=== PATIENT | male | born 1945 | race Caucasian/White ===

== ENCOUNTER 2016-10-20 17:50 | Inpatient (IN) | payer OTHER ==
[2016-10-20] MEDS ORDERED: NS 1,000 ML IV ONE (19:51)
[2016-10-20 20:08] LABS: ANION GAP 14 mEq/L (8-16); CALCIUM 9.2 mg/dL (8.5-10.4); CARBON DIOXIDE 17 mEq/l (22-31); CHLORIDE 95 mEq/L (97-110); CREATININE 0.8 mg/dL (0.7-1.3); GLOMERULAR FILTRATION RATE > 60; GLUCOSE 110 mg/dL (70-100); POTASSIUM 4.6 mEq/L (3.5-5.2); SODIUM 126 mEq/L (134-144)
--- NOTE | 2016-10-20 20:10 | EDPHY ---
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 He also complains of easy fatigability and shortness of breath with exertion. He had a cold 2 weeks ago and thinks that it moved into his lungs and is causing some edema or swelling of his Bronchials.. He also has increased mucus production and a mild cough. He has been may taking multiple herbal medications that have been helping to decrease his symptoms. His was concerned today however because when she was trying to manipulate the gas in his stomach it seems to be and hard ball in his epigastrium. He is requesting steroids for his lungs. He states that he has taken the before for hay fever and that they worked wonderfully. He does not have any history of COPD or asthma. He did take an suppository today that his worked well for him. REVIEW OF SYSTEMS: Constitutional: denies: chills, fever, recent illness, recent injury EENTM: denies: blurred vision, double vision, nose congestion Respiratory: See HPI Cardiac: See HPI denies: irregular heart rate, lightheadedness, palpitations Gastrointestinal/Abdominal: See HPI denies: abdominal pain, diarrhea, nausea, vomiting, blood streaked stools Genitourinary: denies: dysuria, frequency, hematuria, pain Musculoskeletal: denies: joint pain, muscle pain Skin: denies: lesions, rash, jaundice, bruising Neurological: denies: headache, numbness, paresthesia, tingling, dizziness, weakness Hematologic/Lymphatic: denies: blood clots, easy bleeding, easy bruising Immunologic/allergic: denies: HIV/AIDS, transplant EXAM: GENERAL: Well-appearing, well-nourished and in no acute distress. HEAD: Atraumatic, normocephalic. EYES: Pupils equal round and reactive to light, extraocular movements intact, sclera anicteric, conjunctiva are normal. ENT: TMs normal, nares patent, oropharynx clear without exudates. Moist mucous membranes. NECK: Normal range of motion, supple without lymphadenopathy or JVD. LUNGS: Breath sounds clear to auscultation bilaterally and equal. No wheezes rales or rhonchi. HEART: Regular rate and rhythm without murmurs, rubs or gallops. ABDOMEN: Soft, nontender, normoactive bowel sounds. No guarding, no rebound. No masses appreciated. BACK: No CVA tenderness, no spinal tenderness, step-offs or deformities EXTREMITIES: Normal range of motion, no pitting or edema. No clubbing or cyanosis. NEUROLOGICAL: Cranial nerves II through XII grossly intact. Normal speech, normal gait. 5/5 strength, normal movement in all extremities, normal sensation PSYCH: Normal mood, normal affect. SKIN: Warm, dry, normal turgor, no visible rashes or lesions. Source: Patient Exam Limitations: No limitations - Personal History Current Tetanus/Diphtheria Vaccine: Unsure Current Tetanus Diphtheria and Acellular Pertussis (TDAP): Unsure - Medical/Surgical History Hx Asthma: No Hx Chronic Respiratory Disease: No Hx Diabetes: No Hx Cardiac Disease: No Hx Renal Disease: No Hx Cirrhosis: No Hx Alcoholism: No Hx HIV/AIDS: No Hx Splenectomy or Spleen Trauma: No Other PMH: denies - Family History Significant Family History: No pertinent family hx - Social History Smoking Status: Never smoked Alcohol Use: None Drug Use: None Constitutional: Initial Vital Signs Temperature (C) 36.8 C 10/20/16 18:07 Heart Rate 103 H 10/20/16 18:07 Respiratory Rate 16 10/20/16 18:07 Blood Pressure 117/97 H 10/20/16 18:07 O2 Sat (%) 92 10/20/16 18:07 O2 Delivery Mode Room Air Allergies/Adverse Reactions: No Known Allergies Allergy (Unverified 10/20/16 19:54) Home Medications: Medication Instructions Recorded Herbals/Supplements -Info Only 1 ea PO AD 10/20/16 Melatonin [Melatonin 3 MG (*)] 3 mg PO HS PRN 10/20/16 Medical Decision Making - Diagnostics EKG Interpretation: An EKG obtained and was read and documented in trace view. Please see trace view for full reading and report. Sinus tachycardia, inferior infarct age indeterminate with slight QT elevation in lead 3 only. LVH with repolarization abnormality Imaging: X-ray: chest x-ray was obtained. I viewed the images myself on the PACS system. My interpretation of the images is: Pulmonary edema. The radiologist interpretation is pulmonary edema. ED Course/Re-evaluation: Patient has EKG abnormalities that are nonspecific as well as pulmonary edema and elevated troponin. I discussed the case with Dr. Rashi Montenegro who is concerned and recommends admission an echocardiogram. I will order this tonight. They are here with someone else. Also a treat with aspirin and further evaluation tomorrow. He does not meet criteria tonight for label remover activation. I discussed this with the patient and his family who agree. I discussed this with Dr. Sadi Javier who will admit. 9:30 p.m. the patient is being evaluated by Dr. Montenegro. He will admit the patient primarily to his service. Differential Diagnosis: Partial list of the Differential diagnosis considered include but were not limited to; acute coronary disease, bronchitis, pneumonia, reflux, irritable bowel and although unlikely based on the history and physical exam, I also considered sepsis, dissection, aneurysm. I discussed these differential diagnoses and the plan with the patient as well as the usual and expected course. The patient understands that the diagnosis is provisional and that in medicine we are not always correct and that further workup is often warranted. Usual and customary warnings were given. All of the patient's questions were answered. The patient was instructed to return to the emergency department should the symptoms at all worsen or return, otherwise to followup with the physician as we discussed. - Data Points Laboratory Results: Laboratory Results 10/20/16 19:15 10/20/16 19:30 10/20/16 10/20/16 19:30 19:15 WBC 10.37 H 10^3/uL (3.80-9.50) RBC 5.36 10^6/uL (4.40-6.38) Hgb 16.0 g/dL (13.7-17.5) Hct 45.6 % (40.0-51.0) MCV 85.1 fL (81.5-99.8) MCH 29.9 pg (27.9-34.1) MCHC 35.1 g/dL (32.4-36.7) RDW 12.4 % (11.5-15.2) Plt Count 231 10^3/uL (150-400) MPV 10.0 fL (8.7-11.7) Neut % (Auto) 81.6 H % (39.3-74.2) Lymph % (Auto) 9.6 L % (15.0-45.0) Bonner % (Auto) 8.1 % (4.5-13.0) Eos % (Auto) 0.1 L % (0.6-7.6) Baso % (Auto) 0.2 L % (0.3-1.7) Nucleat RBC Rel Count 0.0 % (0.0-0.2) Absolute Neuts (auto) 8.46 H 10^3/uL (1.70-6.50) Absolute Lymphs (auto) 1.00 10^3/uL (1.00-3.00) Absolute Monos (auto) 0.84 H 10^3/uL (0.30-0.80) Absolute Eos (auto) 0.01 L 10^3/uL (0.03-0.40) Absolute Basos (auto) 0.02 10^3/uL (0.02-0.10) Absolute Nucleated RBC 0.00 10^3/uL (0-0.01) Immature Gran % 0.4 % (0.0-1.1) Immature Gran # 0.04 10^3/uL (0.00-0.10) D-Dimer 1.05 H ug/mLFEU (0.00-0.50) Sodium 126 L mEq/L (134-144) Potassium 4.6 mEq/L (3.5-5.2) Chloride 95 L mEq/L (97-110) Carbon Dioxide 17 L mEq/l (22-31) Anion Gap 14 mEq/L (8-16) BUN 18 mg/dL (7-23) Creatinine 0.8 mg/dL (0.7-1.3) Estimated GFR > 60 Glucose 110 H mg/dL (70-100) Calcium 9.2 mg/dL (8.5-10.4) Total Bilirubin 1.7 H mg/dL (0.1-1.4) Conjugated Bilirubin 0.6 H mg/dL (0.0-0.5) Unconjugated Bilirubin 1.1 mg/dL (0.0-1.1) AST 37 IU/L (17-59) ALT 51 IU/L (21-72) Alkaline Phosphatase 78 IU/L (38-126) Troponin I 0.266 H ng/mL (0-0.034) NT-Pro-B Natriuret Pep Pending Total Protein 7.2 g/dL (6.3-8.2) Albumin 4.0 g/dL (3.5-5.0) Lipase 23.0 IU/L (23-300) Medications Given: Discontinued Medications Aspirin (Aspirin) 324 mg PO EDNOW ONE Stop: 10/20/16 21:00 Last Admin: 10/20/16 21:35 Dose: 324 mg Sodium Chloride (Ns) 1,000 mls @ 0 mls/hr IV ONCE ONE PRN Reason: Wide Open Stop: 10/20/16 19:52 Last Admin: 10/20/16 19:53 Dose: 1,000 mls Departure - Departure Disposition: [facility] Inpatient Acute Clinical Impression: Chest pain Qualifiers: Qualifier Code: (R07.9) Chest pain, unspecified Condition: Fair
[2016-10-20 20:15] LABS: % IMMATURE GRANULYOCYTES 0.4 % (0.0-1.1); ABSOLUTE IMMATURE GRANULOCYTES 0.04 10^3/uL (0.00-0.10); ADD DIFF? NO; ADD MORPH? NO; ADD SCAN? NO; ATYPICAL LYMPHOCYTE FLAG 20 (0-99); FRAGMENT RBC FLAG 0 (0-99); HEMATOCRIT 45.6 % (40.0-51.0); LEFT SHIFT FLG 0 (0-99); LIPEMIA HEMOLYSIS FLAG 90 (0-99); MEAN CELL HEMOGLOBIN 29.9 pg (27.9-34.1); MEAN CELL HEMOGLOBIN CONCENTR. 35.1 g/dL (32.4-36.7); MEAN CELL VOLUME 85.1 fL (81.5-99.8); PLATELET CLUMPS FLAG 0 (0-99); PLATELET COUNT 231 10^3/uL (150-400); RED BLOOD CELL COUNT 5.36 10^6/uL (4.40-6.38); RED CELL DISTRIBUTION WIDTH 12.4 % (11.5-15.2)
[2016-10-20 20:27] LABS: ALANINE AMINOTRANSFERASE 51 IU/L (21-72); ALKALINE PHOSPHATASE 78 IU/L (38-126); ASPARTATE AMINOTRANSFERASE 37 IU/L (17-59); BILIRUBIN,TOTAL 1.7 mg/dL (0.1-1.4); BILIRUBIN-CONJUGATED 0.6 mg/dL (0.0-0.5); BILIRUBIN-UNCONJUGATED 1.1 mg/dL (0.0-1.1); TOTAL PROTEIN 7.2 g/dL (6.3-8.2)
[2016-10-20 20:39] LABS: TROPONIN I 0.266 ng/mL (0-0.034)
--- NOTE | 2016-10-20 20:40 | CPEKG ---
Heart Rate: 100 RR Interval: 600 P-R Interval: 148 QRSD Interval: 94 QT Interval: 352 QTC Interval: 454 P Searcy: 39 QRS Searcy: -7 T Wave Searcy: 155 EKG Severity - ABNORMAL ECG - EKG Impression: SINUS TACHYCARDIA EKG Impression: LEFT ATRIAL ABNORMALITY EKG Impression: INFERIOR INFARCT, AGE INDETERMINATE EKG Impression: ANTERIOR INFARCT, AGE INDETERMINATE Electronically Signed By: Alvarado Penny 20-Oct-2016 21:01:07
--- NOTE | 2016-10-20 20:46 | DX ---
PA and lateral chest. October 20, 2016. Clinical History: Dyspnea. Chest pain. Comparison Study: None available. Findings: Interstitial thickening is associated with small bilateral pleural effusions, findings sugg esting acute congestive heart failure. Cardiac silhouette is upper normal. Visualized osseous structures appear normal. Impression: Acute congestive heart failure with interstitial thickening and small bilateral pleural e ffusions..
[2016-10-20] MEDS ORDERED: ASPIRIN 81 MG CHEWABLE TAB PO ONE (20:59)
[2016-10-20] MEDS ORDERED: ONDANSETRON DISINTEGRATING 4 MG TAB PO PRN (22:06)
[2016-10-20] MEDS ORDERED: TEMAZEPAM 15 MG CAP PO PRN (22:06)
[2016-10-21] MEDS: ENOXAPARIN 60 MG/0.6 ML SYR SC SCH ×3 (00:13→21:33)
--- NOTE | 2016-10-21 03:21 | GCON ---
[f rep st] CONSULTATION HISTORY OF PRESENT ILLNESS: Rojas Alonso is a 70-year-old male, without significant past medical history , who has been seen in the past by PAM Mcdonald in our clinic, for a well-patient check. He de nies a history of chest pain. He had previously denied any history of chest pain, palpitations, sync ope, or near syncope. He works at [employer] which is a fairly physical job. He has noticed sh ortness of breath when walking that he attributes to allergies and mucous in his trachea. He has no family history of premature cardiovascular disease. Mother of liver cancer in her 70s and his father had dementia. The patient has recently been complaining of flu-like symptoms, achiness and fatigue at work, as well as progressive shortness of breath, with [place] Heart [employer] class III symptoms of heart fail ure, with shortness of breath with minimal exertion, and extreme fatigue with his exercise at work. He has previously had a history of an abnormal EKG, and it was recommended in August 2015, that the patient undergo a stress test which the patient in his own words "blew off" and did not do, thinking that he would not be able to walk briskly on the treadmill. An echocardiogram was also recommended to evaluate for LVH, and a stress test as I mentioned, was recommended for his dyspnea as well. Toda y the patient feels in his words "lousy", and is not currently taking medication for his hypertension . PAST MEDICAL HISTORY: Significant for hypertension and shortness of breath. PAST SURGICAL HISTORY: Significant for hernia surgery. ALLERGIES: He is known to have allergy to tetanus. SOCIAL HISTORY: Previous tobacco user. REVIEW OF SYSTEMS: His review of systems is negative for weight loss or gain, changes in vision. He has not had chest pain, per se, fainting, palpitations, sweating, pain in legs with walking, swelli ng in his legs, or waking up with shortness of breath. He does not have a history of peripheral marleny a. He has had abdominal fullness and a lack of appetite recently. He has not had nocturia or hemat uria, rash, new skin lesions, memory difficulty, seizures, or dizziness. PHYSICAL EXAMINATION: VITAL SIGNS: The patient's blood pressure is noted to be 155/74, elevated mean arterial pressure is 101, heart rate 81, respiratory rate 16, oxygen saturation 96% on room air. NE CK: Reveals no JVD. HEART: Reveals a normal S1 and S2 with a positive S3 and S4 gallop. LUNGS: Buddy ar to auscultation anteriorly with decreased breath sounds at the left lung base. ABDOMEN: Benign w ith positive bowel sounds which are hyperactive. Nondistended and nontender. I do not appreciate re bound or guarding. EXTREMITIES: Warm, dry, and well perfused without significant peripheral edema. IMAGING: His chest x-ray was interpreted tonight by Dr. Yfn Vaughan, and reveals acute congestive heart failure with interstitial thickening and small bilateral pleural effusions, left more prominent than right. The patient's EKG reveals sinus rhythm, with a prior and old anterior OK, with evidence of probable p ersistent ST-segment elevation, as would be seen in an old anterior infarction, with a QS pattern and an abnormal ST-T wave contour. There was also evidence of Q-waves in lead 3 as well as an abnormal ST-T wave contour in lead 3 and aVF, most consistent with a recent inferior infarction. The patient's echocardiogram reveals segmental wall motion abnormalities involving the anterior wall as well as the basal inferior wall, which is suggestive of an ischemic cardiomyopathy. His ejection fraction is severely reduced at 20. LABORATORY STUDIES: White count 10.37, H and H 16.0 and 45.6, platelet count 231. Coags reveal a D- dimer 1.05, normal range 0 to 0.5. BUN and creatinine are 18 and 0.8. Sodium 126, potassium 4.6, chl oride 95, carbon dioxide 17, and glucose is a nonfasting sample at 110. Total bilirubin 1.7, conjuga neftaly 0.6. Troponin-I is 0.266. Lipase 23. IMPRESSION/PLAN: This patient has a subacute epigastric discomfort and gas, which may not be related to his EKG abnormalities. Clearly his fatigue and shortness of breath which is subacute and superim posed on chronic symptoms, is likely related to a recent inferior injury pattern. It does appear gabrielle t his EKG, when compared to August of 2015, is markedly abnormal and suggestive of an old anterior infarction on today's EKG, which was not present in August 2015. Again there are ST-T wave abnorma lities that are suggestive of a more recent inferior injury. The patient clearly has evidence of an ischemic cardiomyopathy and would benefit from cardiac catheterization, which is planned in the [facility]. I have explained the risks, benefits, alternatives, and course of action to the patient. He unde rstands and may be willing to proceed as planned. 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 He does think he would be willing to proceed with cardiac cat heterization, so we will plan to proceed with that if he lets us in the morning. I have asked that h e notify us immediately for chest pain, shortness of breath, palpitations, fainting, or near fainting . He will clearly need to be on the monitor secondary to his ischemic myopathy and the risk for sudd en cardiac rhythm disturbance that could be life-threatening. /[id number]/MODL
[2016-10-21 04:49] LABS: % IMMATURE GRANULYOCYTES 0.6 % (0.0-1.1); ABSOLUTE IMMATURE GRANULOCYTES 0.04 10^3/uL (0.00-0.10); ADD DIFF? NO; ADD MORPH? NO; ADD SCAN? NO; ATYPICAL LYMPHOCYTE FLAG 30 (0-99); FRAGMENT RBC FLAG 0 (0-99); HEMATOCRIT 41.4 % (40.0-51.0); HEMOGLOBIN 14.4 g/dL (13.7-17.5); LEFT SHIFT FLG 0 (0-99); LIPEMIA HEMOLYSIS FLAG 90 (0-99); MEAN CELL HEMOGLOBIN 30.3 pg (27.9-34.1); MEAN CELL HEMOGLOBIN CONCENTR. 34.8 g/dL (32.4-36.7); MEAN CELL VOLUME 87.2 fL (81.5-99.8); MEAN PLATELET VOLUME 10.3 fL (8.7-11.7); PLATELET CLUMPS FLAG 0 (0-99); PLATELET COUNT 194 10^3/uL (150-400); RED BLOOD CELL COUNT 4.75 10^6/uL (4.40-6.38); RED CELL DISTRIBUTION WIDTH 12.4 % (11.5-15.2)
[2016-10-21 04:56] LABS: INR 1.15 (0.83-1.16); PROTIME(PATIENT) 14.7 SEC (12.0-15.0)
[2016-10-21 04:57] LABS: APTT 40.7 SEC (23.0-38.0)
[2016-10-21] MEDS ORDERED: FUROSEMIDE 40 MG TAB PO ONE ×2 (05:06→15:00)
[2016-10-21 05:07] LABS: ALANINE AMINOTRANSFERASE 51 IU/L (21-72); ALBUMIN 3.2 g/dL (3.5-5.0); ALKALINE PHOSPHATASE 66 IU/L (38-126); ANION GAP 10 mEq/L (8-16); ASPARTATE AMINOTRANSFERASE 29 IU/L (17-59); BILIRUBIN,TOTAL 1.6 mg/dL (0.1-1.4); CALCIUM 8.4 mg/dL (8.5-10.4); CARBON DIOXIDE 18 mEq/l (22-31); CHLORIDE 99 mEq/L (97-110); CHOLESTEROL 144 mg/dL (140-220); CHOLESTEROL/HDL RATIO 3.89 RATIO (1.00-4.97); CREATININE 0.7 mg/dL (0.7-1.3); GLOMERULAR FILTRATION RATE > 60; GLUCOSE 97 mg/dL (70-100); HIGH DENSITY LIPOPROTEIN 37 mg/dL (40-65); LDL/HDL RATIO 2.51 RATIO (1.00-3.64); LOW DENSITY LIPOPROTEIN 93 mg/dL (80-100); MAGNESIUM 1.9 mg/dL (1.6-2.3); NON-HIGH DENSITY LIPOPROTEIN 107 mg/dL (90-129); POTASSIUM 4.4 mEq/L (3.5-5.2); SODIUM 127 mEq/L (134-144); TOTAL PROTEIN 6.3 g/dL (6.3-8.2); TRIGLYCERIDE 70 mg/dL (40-150); VERY LOW DENSITY LIPOPROTEINS 14 mg/dL (8-25)
[2016-10-21] MEDS ORDERED: NITROGLYCERIN 0.4 MG BTL SL PRN (06:00)
[2016-10-21] MEDS ORDERED: NS 1,000 ML IV ONE (06:00)
--- NOTE | 2016-10-21 09:02 | ECHO ---
[id number] + + [address] : : [place] [address] : : [phone] + + Adult Echocardiographic Report + + :Name: KENRICK COREA Study Date: 10/20/2016 09:50 PM : : Hospital Admission Number: [id number] : :: 1945 Gender: Male Height: 66 in : :Age: 70 yrs Race: PTD Weight: 134 lb : :Reason For Study: Eval LV Fx : : BSA: 1.7 meters2: :History: Chest Pain, SOB, Abnormal EKG : + + MMode/2D Measurements & Calculations IVSd: 0.92 cm LVIDd: 4.9 cm FS: 11.1 % MV Diam: 3.2 cm LVPWd: 1.3 cm LVIDs: 4.4 cm EDV(Teich): 115.5 ml ESV(Teich): 87.7 ml EF(Teich): 24.1 % Ao root diam: LVOT diam: 2.0 cmLVLd ap4: 7.4 cm SV(MOD-sp4): 3.7 cm LVOT area: EDV(MOD-sp4): 19.0 ml ACS: 1.8 cm 3.1 cm2 105.0 ml LVLs ap4: 7.6 cm ESV(MOD-sp4): 86.0 ml EF(MOD-sp4): 18.1 % Normal Measurement Values: + + :LVIDd (3.5-5.7cm) IVSd (0.6-1.1cm) LVPWd (0.6-1.1cm) Aortic Root (2.0-3.7cm)Left Atrium (1.5-4.0cm): :LV Vol(d) (76-115ml) LV Vol(s) (29-48ml) Ejec Fraction (50-65%)PV Bj (0.6- 1.2m/s) TV Bj (0.4-1.0m/s) : :MV E Bj (0.8-1.0m/s)MV A Bj (0.3-1.0m/s)LVOT Bj (0.7-1.2m/s) Asc Ao Bj ( 0.9-1.8m/s) : + + Doppler Measurements & Calculations MV V2 max: AI max bj: MR max bj: MR(RF 1 diam): 99.1 cm/sec 413.0 cm/sec 470.5 cm/sec 25.3 % MV max P.9 mmHg AI max PG: MR max PG: MV V2 mean: 68.2 mmHg 88.6 mmHg 71.6 cm/sec MV mean P.0 mmHg MV V2 VTI: 18.1 cm MV area (1 diam): 8.0 cm2 MV Flow area(1diam): 8.0 cm2 SV(MV 1 diam): 145.6 ml SI(MV 1 diam): 86.3 ml/m2 Left Ventricle The left ventricle is mildly dilated. There is mild concentric left ventricular hypertrophy. Left ventricular systolic function is moderate to severely reduced. Ejection Fraction = 15-20%. There is mid anteroseptal to apical hypokinesis. There is inferior akinesis. Right Ventricle The right ventricle is normal in size and function. Atria The left atrial size is normal. Right atrial size is normal. Mitral Valve The mitral valve leaflets appear thickened, but open well. There is no evidence of mitral valve prolapse. There is no mitral valve stenosis. There is mild to moderate mitral regurgitation. Tricuspid Valve The tricuspid valve is normal in structure and function. There is trace tricuspid regurgitation. Aortic Valve The aortic valve is trileaflet. There is no aortic stenosis. Moderate to severe aortic regurgitation. Pulmonic Valve The pulmonic valve is normal in structure and function. There is no pulmonic valvular regurgitation. Great Vessels The aortic root is normal size. Pericardium/Pleural There is no pericardial effusion. There is a large pleural effusion. Conclusion A complete two-dimensional transthoracic echocardiogram was performed (2D, M-mode, Doppler and color flow Doppler). The left ventricle is mildly dilated. There is mild concentric left ventricular hypertrophy. Left ventricular systolic function is moderate to severely reduced. Ejection Fraction = 15-20%. There is mid anteroseptal to apical hypokinesis. There is inferior akinesis. The mitral valve leaflets appear thickened, but open well. There is mild to moderate mitral regurgitation. The tricuspid valve is normal in structure and function. There is trace tricuspid regurgitation. The aortic valve is trileaflet. Moderate to severe aortic regurgitation. There is no pericardial effusion. There is a large pleural effusion. These findings are consistent with an ischemic cardimyopathy. Final Reading Physician: Abe Che signed on 10/21/2016 09:01 AM Ordering Physician: DOUG YAO Performed By: Alex Reyes, [facility]
[2016-10-21] MEDS ORDERED: LIDOCAINE 1% 30 ML SDV ONE (09:29)
[2016-10-21] MEDS ORDERED: MIDAZOLAM 2 MG/2 ML VIAL ONE (09:30)
[2016-10-21] MEDS ORDERED: HEPARIN 10,000 UNIT/10 ML MDV ONE (09:30)
[2016-10-21] MEDS ORDERED: fentaNYL 100 MCG/2 ML INJ ONE (09:30)
[2016-10-21] MEDS ORDERED: VERAPAMIL 5 MG/2 ML VIAL ONE (09:30)
[2016-10-21] MEDS ORDERED: diphenhydrAMINE 25 MG CAP PO ONE (09:30)
[2016-10-21] MEDS ORDERED: IOPAMIDOL (ISOVUE-370) 150 ML BTL IV ONE ×2 (09:30→12:08)
[2016-10-21] MEDS ORDERED: ASPIRIN EC 325 MG TAB PO ONE (09:30)
[2016-10-21] MEDS ORDERED: DIAZEPAM 5 MG TAB PO ONE (09:30)
[2016-10-21] MEDS ORDERED: BIVALIRUDIN 250 MG/5 ML VIAL IV ONE (12:11)
[2016-10-21] MEDS ORDERED: NITROGLYCERIN 1,500 MCG/15 ML VIAL MISC ONE (12:11)
[2016-10-21] MEDS ORDERED: ATROPINE SULFATE 1 MG/10 ML SYR IVP PRN (12:59)
--- NOTE | 2016-10-21 14:57 | CPIP ---
[f rep st] INVASIVE CARDIAC PROCEDURE DATE OF PROCEDURE: 10/21/2016 PROCEDURE PERFORMED: 1. Selective coronary angiography. 2. Left heart catheterization. 3. Left ventriculogram. 4. Manual hold arteriotomy repair. COMPLICATIONS: None. INDICATIONS/APPROPRIATE USE CRITERIA: The patient presents with a sudden myocardial infarction with an abnormal EKG and evidence of [place] Heart [employer] Class IV symptoms of heart failure. The p atient has also had epigastric pressure at rest which is likely an anginal equivalent consistent with CCS Class IV angina. A stress test was obviously not done because of resting EKG abnormalities and evidence of ischemic cardiomyopathy on the basis of echocardiogram performed last evening. PROCEDURE IN DETAIL: After informed consent was obtained and NPO status was confirmed, the region of the right groin was cleaned, prepped and draped in sterile fashion. Approximately 15 cc of 1% lidoc raghu were realized for local anesthesia. A 6-Bulgarian sheath was placed through the right common femor al artery with single acupuncture of the micropuncture set which was ultimately exchanged for a J-wir e, and a 6-Bulgarian sheath was placed with modified Seldinger technique. The patient then underwent th e previously mentioned diagnostic procedures with use of JR4 and JL4 coronary catheters, as well as a 6-Bulgarian pigtail catheter. Standard wire exchange technique was utilized for all catheter exchanges . We had difficulty negotiating the proximal portion of the right common iliac with a standard J-wire. Therefore, the JR catheter was used along with a Glidewire to advance into the abdominal aorta. The distal abdominal aorta was tortuous, suggestive of a possible aneurysm. The JR4 was seated into the proximal and ostial right coronary, revealing a total occlusion of the right coronary with right-to- right and very weak difiw-po-jiws collaterals. 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 The right coronary artery was originally dominant and gives rise to a PDA and 2 posterolateral ventricular bran ches. Again, bridging collaterals are seen consistent with a chronic total occlusion of the right co ronary. The left main coronary lumen is approximately 4 mm in size and has 2 lesions which are 70-80% obstruc neftaly. The left main bifurcates into an LAD and circumflex system. There is a robust proximal diagona l vessel. The LAD is totally occluded distal to the diagonal and septal takeoff. The circumflex is also subtotally occluded with a 95% or greater obstruction. There is [place] 1 flow via collaterals int o the mid and distal LAD. There is evidence of wggkm-pu-cpbh collaterals to 2 PLV branches posterior ly, as well as gtnp-qd-qxzl collaterals as I previously mentioned. The patient underwent left heart catheterization with the pigtail, demonstrating elevated left ventricle end-diastolic pressure measur ed at 28 mmHg. The patient underwent a left ventriculogram in the ALBRIGHT projection, demonstrating jeanne rely depressed left ventricular systolic function with severe hypokinesis of the entire inferior wall and severe hypokinesis of the mid-anterior, distal anterior wall and apex, consistent with ischemic cardiomyopathy, ejection fraction is 10-15%. There was no evidence of a gradient upon pullback across the aortic valve. The patient underwent an abdominal aortogram with bilateral iliac runoff given the findings and the difficulty of traversing t he ostial and proximal right common iliac vessel. 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 It is unclear to me which of those vessels is involved. The re was a long landing zone in the infrarenal abdominal aorta, followed by an abdominal aortic aneurys m which is saccular in nature. Distal to the abdominal aortic aneurysm, there was significant plaque within the distal aorta, as well as an 85-90% right common iliac stenosis with associated reconstitu tion of an iliac aneurysm as well, which in essence is at least complex atheroma, if not a contained pseudoaneurysm in that location. A contained pseudoaneurysm versus a true aneurysm in that location which is the proximal right common iliac. There was diffuse disease in the iliacs distally without o ther flow-limiting obstruction. SUMMARY OF FINDINGS: This patient has ischemic cardiomyopathy with what appears to be a relatively r ecent LAD obstruction with evidence of reconstitution. There was also a complete occlusion of the ri ght coronary artery as well, and severe [place] vessel coronary disease including involving the left m ain. If the patient's heart muscle is viable, he could be considered for bypass surgery with HATCH to the LAD, which looks like a significant vessel, saphenous vein graft to the diagonal graft to the ci rcumflex obtuse marginal system, PLV system, and PDA system. I do suspect that there is high-grade o bstruction of the right coronary artery distal to the PDA takeoff, so both of those may need to be se parately bypassed. The patient's other option would be for complex intervention if indeed his heart muscle is more viable than expected. The patient has an abdominal aortic aneurysm which is infrarenal with associated right common iliac d isease, if not aneurysm. I think the patient would be a good candidate long-term for endograft repai r of that area, given the long landing zone in the aorta distal to the renal takeoff. The patient cl early needs to be treated for his ischemic cardiomyopathy with beta-jorge, RONNELL inhibitor, ultimatel y spironolactone, and also statin therapy. 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 I think for now he should be treated with aspirin and subcutaneous full dose Lovenox after an appropriate bedrest following his right groin approach with manual hold. /[id number]/MODL
[2016-10-21] MEDS: CARVEDILOL 3.125 MG TAB PO SCH (18:24)
[2016-10-22 05:34] LABS: ANION GAP 9 mEq/L (8-16); CALCIUM 7.8 mg/dL (8.5-10.4); CARBON DIOXIDE 21 mEq/l (22-31); CHLORIDE 100 mEq/L (97-110); CREATININE 0.7 mg/dL (0.7-1.3); GLOMERULAR FILTRATION RATE > 60; GLUCOSE 83 mg/dL (70-100); POTASSIUM 4.1 mEq/L (3.5-5.2); SODIUM 130 mEq/L (134-144)
[2016-10-22 05:38] LABS: TROPONIN I 0.208 ng/mL (0-0.034)
--- NOTE | 2016-10-22 08:56 | CPEKG ---
Heart Rate: 90 RR Interval: 667 P-R Interval: 160 QRSD Interval: 124 QT Interval: 372 QTC Interval: 455 P [place]: 27 QRS [place]: 32 T Wave [place]: 175 EKG Severity - ABNORMAL ECG - EKG Impression: SINUS RHYTHM EKG Impression: NONSPECIFIC INTRAVENTRICULAR CONDUCTION DELAY EKG Impression: INFERIOR INFARCT, AGE INDETERMINATE EKG Impression: ANTERIOR INFARCT, AGE INDETERMINATE EKG Impression: ST DEPRESSION, CONSIDER ISCHEMIA, LAT LEADS EKG Impression: UNCHANGED IN COMPARISON TO PRIOR Electronically Signed By: Jaquan Walker 22-Oct-2016 10:08:29
[2016-10-22] MEDS: LISINOPRIL 2.5 MG TAB PO SCH (09:26)
[2016-10-22] MEDS: POTASSIUM CL 20 MEQ PKT PO SCH ×2 (09:26→22:05)
[2016-10-22] MEDS: FUROSEMIDE 40 MG/4 ML VIAL IVP SCH ×2 (09:26→15:42)
[2016-10-22] MEDS: CARVEDILOL 3.125 MG TAB PO SCH (09:27)
[2016-10-22] MEDS: ATORVASTATIN CALCIUM 40 MG TAB PO SCH (09:27)
[2016-10-22] MEDS: ASPIRIN 325 MG TAB PO SCH (09:27)
[2016-10-22] MEDS: ENOXAPARIN 60 MG/0.6 ML SYR SC SCH ×2 (09:27→22:05)
--- NOTE | 2016-10-22 10:09 | GCON ---
[f rep st] CONSULTATION DATE OF CONSULTATION: 10/22/2016 REFERRING PHYSICIAN: Dr. Montenegro IMPRESSION: 1. Class IV congestive heart failure secondary to ischemic cardiomyopathy with severe 3-vessel disease and moderate aortic insufficiency. 2. Severe peripheral vascular disease with descending thoracic atherosclerosis and abdominal aortic aneurysm. 3. Remote cigarette abuse. RECOMMENDATIONS: This gentleman will be conferenced. Consideration for complete revascularization, aortic valve replacement at a 10% to 12% mortality could be considered. Other options are medical therapy. I see no place for intervention with PCI in this setting, due to the complex multiple vessel involvement. The patient and his were offered the option of potential surgical intervention. In the meantime, we will begin aggressive diuresis since he has persistent PND, orthopnea, and has not been diuresed since admission. CHIEF COMPLAINT: This gentleman has a prolonged history of congestive heart failure symptoms with fatigue, shortness of breath, to the point he had severe PND and orthopnea, and was brought in somewhat extremis to the ER with difficulty breathing. He attributed it to a bronchitis and allergies, although his states he has been going downhill for greater than a year. He was recommended a complete cardiac evaluation a year ago, but refused. He has not had prior cardiac events that he is aware of. MEDICAL HISTORY: Positive for remote cigarette abuse. He does not drink. He works at [employer]. He does have uncontrolled hypertension, which he has never treated. PREVIOUS SURGERIES: Include hernia surgery. ALLERGIES: He is allergic to tetanus. REVIEW OF SYSTEMS: At the present time, he complains of shortness of breath with any activity, including talking. He is unable to lie flat. His has noted marked abdominal distention. The patient is not a great historian, and tends to ramble about multiple unrelated events. LABORATORY DATA: BNP on admission was greater than 8000. Creatinine was 0.8, bilirubin 1.7. Troponin 0.266. Please see EKG and cath report as well as echo. Chest x-ray reveals bilateral infiltrates consistent with congestive heart failure and bilateral pleural effusions. He has some cardiomegaly noted as well. PHYSICAL EXAMINATION: GENERAL: A small [place] gentleman, sitting upright, slightly short of breath. VITAL SIGNS: 130/92, pulse 85, respirations 17, O2 saturation 95% on room air. HEENT: Reveals poor dentition. NECK: Without bruits. CARDIAC: Heart rate is regular without murmur, S3, or S4. LUNGS: Basilar dullness as well as end expiratory rales. ABDOMEN: Slightly protuberant, nontender. Bowel sounds are active. RECTAL AND GENITAL EXAM: Deferred. NEUROLOGICAL: He is oriented x3. Mood and affect are appropriate. /[id number]/MODL MTDD
--- NOTE | 2016-10-22 12:38 | US ---
Bilateral Duplex/Doppler Carotid Sonography History: 70-year-old, preop valve replacement, dizziness, hypertension, smoker. Comparison: None available. Technique: The cervical portions of the carotid and vertebral arteries were imaged and interrogated by color and pulsed Duplex/Doppler. Spectral analysis was performed. Findings Right Carotid: Right CCA peak systolic velocity = 60 cm/sec Right ECA peak systolic velocity = 67 cm/sec Right ICA peak systolic velocity = 60 cm/sec Right ICA/CCA systolic velocity ratio = 1 Velocities correlate to less than 50 % diameter stenosis of the origin of the right internal carotid artery with respect to the normal distal internal carotid artery. There is no significant calcified p laque involving the right carotid bulb and proximal right internal carotid artery. Left Carotid: Left CCA peak systolic velocity = 74 cm/sec Left ECA peak systolic velocity = 54 cm/sec Left ICA peak systolic velocity = 55 cm/sec Left ICA/CCA systolic velocity ratio = 0.8 Velocities correlate to less than 50 % diameter stenosis of the origin of the left internal carotid a rtery with respect to the normal distal internal carotid artery. There is mild to moderate calcified plaque involving the left carotid bulb and proximal left internal carotid artery. Vertebral Arteries: Antegrade flow is shown by pulsed Doppler of each vertebral artery. Impression: No hemodynamically significant stenosis by systolic velocity criteria. Measurement of carotid stenosis is based on velocity parameters that correlate the residual internal carotid diameter with [place] Symptomatic Carotid Endarterectomy Trial (NASCET) based stenosis levels.
--- NOTE | 2016-10-22 18:01 | PDCARPN ---
[id number] Assessment/Plan: Assessment: 70-year-old male admitted in 10/20/2016 chest pain and shortness of breath for 3 weeks. He has significant history of hypertension. Echocardiogram (10/20/2016 ) showed LV mildly dilated with concentric LVH, systolic function was severely reduced with EF of 15-20%, mild anterior septal to apical hypokinesis, inferior radial is akinesis, wqwb-xi-lhwsfttm MR, to trace TR, moderate to severe AI, will large pleural effusion. Underwent cardiac catheterization on 10/20/[address] Montenegro, found to have severe ischemic cardiomyopathy with multivessel disease, abdominal aortic aneurysm which is infrarenal with associated right common iliac disease. He has been started on carvedilol, lisinopril, and be given IV diuresis. CT surgery has seen patient, would like him to be further diuresed before considering surgery. Patient reports no chest pressure last p.m.. Reports orthopnea, but has improved, gets very short of breath little exertion. No arrhythmias noted overnight. Plan: 1. CAD: Multivessel, considering total revascularization by CABG, planning to diuresed before surgery. Currently on ASA, beta-jorge, and Lovenox. Heart rate has been running in the 90s, blood pressure stable, increased carvedilol up to 6.25 mg p.o. twice daily. 2. Valvular heart disease: Wide open AI, again CT surgery is seen, consider replacement. 3. Ischemic cardiomyopathy: EF 15-20%, NYHA class IV symptoms, elevated JVD, beta-jorge, Glenroy inhibitor, and being diuresed IV Lasix. Monitor renal function closely. 4. Hyperlipidemia: Multivessel CAD, started on atorvastatin, will probably need repeat fasting lipid and liver panel in 8 weeks. 10/22/16 16:10 Subjective: Patient reports no chest pain, continue shortness of breath, denies of any palpitations, lightheadedness. Reviewed/Discussed With: family ( and Son), other (Dr Moore) Objective: Vital Signs (8 Hrs) Temp Pulse Resp BP Pulse Ox 10/22/16 16:00 36.6 C 79 17 102/70 94 10/22/16 12:00 36.7 C 96 18 135/92 H 93 Intake/Output (24 Hrs) 10/21/16 10/22/16 10/23/16 05:59 05:59 05:59 Intake Total 1100 Output Total 850 Balance 250 Intake: Oral (ml) 100 IV Infused (ml) 1000 Ns 1,000 ml @ KVO IV 1000 [facility] Rx#:[id number] Output: Urine (ml) 850 Urinal 850 Other: Intake Quantity Yes Sufficient Number of Stools Urinal 1 Result Diagrams: 10/21/16 04:15 10/23/16 05:14 Cardiac Labs: Cardiac Lab Results (72 Hrs) 10/22/16 04:41 Troponin I 0.208 H - Physical Exam Constitutional: WDWN Ears, Nose, Mouth, Throat: moist mucous membranes Cardiovascular: regular rate and rhythm, no rubs, diastolic murmur (Right upper chest, 3/6), jugular vein distention (7-8 cm above sternal notch at 45 degree angle), pulses symmetric bilat, No carotid bruit Peripheral Pulses: 1+: dorsalis-pedis (R), dorsalis-pedis (L), 2+: carotid (R), carotid (L) Respiratory: reduced air movement, other (Rales noted in bases bilateral, no rhonchi, wheezing noted.) Gastrointestinal: normoactive bowel sounds, no masses, other (Abdomen firm to palpitation, patient reporting bloating.) Skin: warm, no edema Neurologic: AAOx3, CN II-XII grossly intact Psychiatric: cooperative, interactive, following commands ICD10 Worksheet Patient Problems: Problems Problem Status Diagnosed Chest pain Acute
[2016-10-22] MEDS: CARVEDILOL 6.25 MG TAB PO SCH (18:24)
[2016-10-22] MEDS ORDERED: FUROSEMIDE 40 MG/4 ML VIAL IVP ONE (19:25)
[2016-10-22] MEDS ORDERED: FUROSEMIDE 80 MG in D5W 50 ML IV ONE (22:00)
[2016-10-23 06:02] LABS: ANION GAP 8 mEq/L (8-16); CALCIUM 8.2 mg/dL (8.5-10.4); CARBON DIOXIDE 23 mEq/l (22-31); CHLORIDE 97 mEq/L (97-110); CREATININE 0.7 mg/dL (0.7-1.3); GLOMERULAR FILTRATION RATE > 60; GLUCOSE 89 mg/dL (70-100); MAGNESIUM 1.8 mg/dL (1.6-2.3); POTASSIUM 3.6 mEq/L (3.5-5.2); SODIUM 128 mEq/L (134-144)
[2016-10-23 09:18] LABS: HEMOGLOBIN A1C 5.6 % (4.0-6.0)
[2016-10-23] MEDS ORDERED: POTASSIUM CL 20 MEQ TAB PO SCH (10:00)
[2016-10-23] MEDS: ATORVASTATIN CALCIUM 40 MG TAB PO SCH (10:04)
[2016-10-23] MEDS: CARVEDILOL 6.25 MG TAB PO SCH ×2 (10:04→17:36)
[2016-10-23] MEDS: LISINOPRIL 2.5 MG TAB PO SCH (10:04)
[2016-10-23] MEDS: ASPIRIN 325 MG TAB PO SCH (10:04)
[2016-10-23] MEDS: ENOXAPARIN 60 MG/0.6 ML SYR SC SCH ×2 (10:05→21:40)
[2016-10-23] MEDS: FUROSEMIDE 40 MG/4 ML VIAL IVP SCH (10:05)
[2016-10-23] MEDS: POTASSIUM CL 20 MEQ PKT PO SCH (10:50)
[2016-10-23] MEDS ORDERED: BISACODYL 10 MG SUPP PR PRN (11:56)
[2016-10-23] MEDS ORDERED: MAGNESIUM HYDROXIDE 30 ML UDCUP PO PRN (11:56)
[2016-10-23] MEDS ORDERED: LACTULOSE 20 GM/30 ML UDCUP PO PRN (11:56)
[2016-10-23] MEDS ORDERED: POLYETHYLENE GLYCOL 3350 17 GM PKT PO PRN (11:56)
[2016-10-23] MEDS ORDERED: FUROSEMIDE 100 MG/10 ML VIAL IVP SCH (14:00)
--- NOTE | 2016-10-23 14:40 | SOAPPROG ---
LANDRY Progress Note Assessment/Plan: Assessment: Plan: 10/23/16 14:37 30 min w pt and family re likely max med tx then reassess for surgery but will conference in am recommendations to follow continue lasix CHF mgmt per cardiology Objective: Vital Signs Temp Pulse Resp BP Pulse Ox 36.6 C 74 17 100/69 97 10/23/16 12:00 10/23/16 12:00 10/23/16 12:00 10/23/16 12:00 10/23/16 12:00 Laboratory Results 10/23/16 05:14 10/22/16 10/23/16 10/24/16 05:59 05:59 05:59 Intake Total 1100 2350 Output Total 850 2625 Balance 250 -275 PT 14.7 SEC (12.0-15.0) 10/21/16 04:15 INR 1.15 (0.83-1.16) 10/21/16 04:15 ICD10 Worksheet Patient Problems: Problems Problem Status Diagnosed Chest pain Acute
[2016-10-23] MEDS: POTASSIUM CL 20 MEQ TAB PO SCH ×2 (15:27→21:41)
[2016-10-23] MEDS: FUROSEMIDE 80 MG in D5W 50 ML IV SCH ×2 (15:27→21:41)
[2016-10-23] MEDS ORDERED: POTASSIUM CL 20 MEQ PKT PO SCH (16:00)
--- NOTE | 2016-10-23 17:30 | PDCARPN ---
Cardiology Progress Note Chief Complaint: Patient reports fatigue symptoms Assessment/Plan: Assessment: 70-year-old male admitted in 10/20/2016 chest pain and shortness of breath for 3 weeks. He has significant history of hypertension. Echocardiogram (10/20/2016 ) showed LV mildly dilated with concentric LVH, systolic function was severely reduced with EF of 15-20%, mild anterior septal to apical hypokinesis, inferior is akinesis, fpvm-gh-hjlqzhuh MR, to trace TR, moderate to severe AI, will large pleural effusion. Underwent cardiac catheterization on 10/20/[address] Montenegro, found to have severe ischemic cardiomyopathy with multivessel disease, abdominal aortic aneurysm which is infrarenal with associated right common iliac disease. He has been started on carvedilol, lisinopril, and be given IV diuresis. CT surgery has seen patient, would like him to be further diuresed before considering surgery. Hyponatremic with sodium 128. Negative guaiacs x2. Weight is down 2 kilos. Increased diuretic therapy, patient reports no episodes of chest pressure. Improvement in shortness of breath. JVD is decreased. Remains sinus rhythm on monitor with rare PVC. Plan: 1. CAD: Multivessel, considering total revascularization by CABG. Currently on ASA, beta-jorge, and Lovenox. Heart rate decreased down to 70s on increased dose of carvedilol. 2. Valvular heart disease: Wide open AI, again CT surgery is seen, consider replacement. 3. Ischemic cardiomyopathy with systolic heart failure: EF 15-20%, NYHA class IV symptoms, JVD decreased,, beta-jorge, Glenroy inhibitor, Lasix increased to 80 mg q.8 hours. Close monitoring of eyes and nose, daily weights. BMP, magnesium in a.m. 4. Hyponatremia: Sodium down to 128, fluid restriction of 1500 mL a day. Diuresing, if no improvement, consider discontinuing Aldactone. 5. Hyperlipidemia: Multivessel CAD, started on atorvastatin, will probably need repeat fasting lipid and liver panel in 8 weeks. 10/23/16 15:30 Received call for patient's RN, giving Lasix, noted systolic blood pressure 85, patient asymptomatic. told her to hold Lasix at this time, and place parameters on giving next dose of Lasix only if systolic blood pressures greater than 100mmHg. Have also told her hold Coreg dose for systolic blood pressure less than 95 mmHg. 10/23/16 17:30 Subjective: Patient reports easier to breath, orthopnea improved, denies of any chest pressure or pain. Denies of any palpitations or lightheadedness. Reviewed/Discussed With: family ( and Son), multidisciplinary team (Patient RN), other (Dr Olson) Objective: Vital Signs (8 Hrs) Temp Pulse Resp BP Pulse Ox 10/23/16 15:57 36.6 C 69 16 87/55 L 97 10/23/16 12:00 36.6 C 74 17 100/69 97 Intake/Output (24 Hrs) 10/22/16 10/23/16 10/24/16 05:59 05:59 05:59 Intake Total 1100 2350 Output Total 850 2625 Balance 250 -275 Intake: Oral (ml) 100 2290 IV Infused (ml) 1000 60 Ns 1,000 ml @ KVO IV 1000 ONCALL ONE Rx#:[id number] Furosemide 80 mg In D5w 60 50 ml @ 100 mls/hr IV ONCE ONE Rx#:[id number] Output: Urine (ml) 850 2625 Urinal 850 2625 Other: Weight 63.8 kg Intake Quantity Yes Sufficient Number of Voids Urinal 3 Number of Stools Urinal 1 Result Diagrams: 10/21/16 04:15 10/23/16 05:14 Cardiac Labs: Cardiac Lab Results (72 Hrs) 10/22/16 04:41 Troponin I 0.208 H - Physical Exam Constitutional: WDWN, no apparent distress Ears, Nose, Mouth, Throat: moist mucous membranes Cardiovascular: regular rate and rhythm, diastolic murmur (3/6 right at upper chest.), jugular vein distention (JVD 5-6 cm above sternal notch at 45 degree angle) Peripheral Pulses: 1+: dorsalis-pedis (R), dorsalis-pedis (L), 2+: carotid (R), carotid (L) Respiratory: clear to auscultate bilat Gastrointestinal: normoactive bowel sounds Skin: warm, no edema Neurologic: AAOx3, CN II-XII grossly intact Psychiatric: cooperative, interactive, following commands ICD10 Worksheet Patient Problems: Problems Problem Status Diagnosed Chest pain Acute
[2016-10-23] MEDS: SENNOSIDES/DOCUSATE SODIUM TAB PO SCH (21:40)
[2016-10-24 05:23] LABS: ANION GAP 8 mEq/L (8-16); CALCIUM 8.5 mg/dL (8.5-10.4); CARBON DIOXIDE 23 mEq/l (22-31); CHLORIDE 99 mEq/L (97-110); CREATININE 0.8 mg/dL (0.7-1.3); GLOMERULAR FILTRATION RATE > 60; GLUCOSE 90 mg/dL (70-100); POTASSIUM 4.7 mEq/L (3.5-5.2); SODIUM 130 mEq/L (134-144)
[2016-10-24] MEDS: FUROSEMIDE 80 MG in D5W 50 ML IV SCH ×3 (06:11→14:22)
--- NOTE | 2016-10-24 08:54 | CPEKG ---
Heart Rate: 100 RR Interval: 600 P-R Interval: 156 QRSD Interval: 110 QT Interval: 360 QTC Interval: 465 P [place]: 19 QRS [place]: 15 T Wave [place]: 169 EKG Severity - ABNORMAL ECG - EKG Impression: SINUS TACHYCARDIA EKG Impression: PROBABLE LEFT ATRIAL ABNORMALITY EKG Impression: NONSPECIFIC INTRAVENTRICULAR CONDUCTION DELAY EKG Impression: LVH WITH SECONDARY REPOLARIZATION ABNORMALITY EKG Impression: INFERIOR INFARCT, AGE INDETERMINATE EKG Impression: ANTERIOR INFARCT, AGE INDETERMINATE Electronically Signed By: Rashi Montenegro 24-Oct-2016 08:53:58
[2016-10-24] MEDS: CARVEDILOL 6.25 MG TAB PO SCH (09:36)
[2016-10-24] MEDS: ATORVASTATIN CALCIUM 40 MG TAB PO SCH (09:52)
[2016-10-24] MEDS: ASPIRIN 325 MG TAB PO SCH (09:52)
[2016-10-24] MEDS: POTASSIUM CL 20 MEQ TAB PO SCH ×3 (09:52→22:00)
[2016-10-24] MEDS: ENOXAPARIN 60 MG/0.6 ML SYR SC SCH ×2 (09:53→22:00)
[2016-10-24] MEDS: LISINOPRIL 2.5 MG TAB PO SCH (09:55)
[2016-10-24] MEDS: SENNOSIDES/DOCUSATE SODIUM TAB PO SCH ×2 (09:58→22:05)
[2016-10-24] MEDS: FUROSEMIDE 100 MG/10 ML VIAL IVP SCH ×2 (14:21→21:57)
--- NOTE | 2016-10-24 14:46 | PDCARPN ---
Cardiology Progress Note Chief Complaint: The patient reports fatigue, denies of any chest pain or pressure. Reports improvement in orthopnea, denies of any PND. Assessment/Plan: Assessment: 70-year-old male admitted in 10/20/2016 chest pain and shortness of breath for 3 weeks. He has significant history of hypertension. Echocardiogram (10/20/2016 ) showed LV mildly dilated with concentric LVH, systolic function was severely reduced with EF of 15-20%, mild anterior septal to apical hypokinesis, inferior is akinesis, mfsf-hd-hxshkfbq MR, to trace TR, moderate to severe AI, will large pleural effusion. Underwent cardiac catheterization on 10/20/[address] Montenegro, found to have severe ischemic cardiomyopathy with multivessel disease, abdominal aortic aneurysm which is infrarenal with associated right common iliac disease. Noted yesterday evening of having systolic blood pressures in the 80s, asymptomatic, diuretic and evening dose of carvedilol held. BP better this morning, carvedilol, lisinopril, Aldactone and been discontinued. Restarting diuresis. No significant weight loss yesterday. Patient has sinus rhythm with rare PVC. Denies of any chest pain or pressure. Improvement in shortness of breath and orthopnea. JVD improved. Plan: 1. CAD: Multivessel, considering total revascularization by CABG. Currently on ASA, beta-jorge, and Lovenox. Beta-blockers been held at this time due to hypotension, and to aid in diuresis. Patient will undergo cardiac MR to evaluate for viability cardiac muscle. Pending results, may also consider doing a dobutamine echo in a.m.. Continue to be seen by CT surgery. 2. Valvular heart disease: Wide open AI, will need replaced with CABG. 3. Ischemic cardiomyopathy with systolic heart failure: EF 15-20%, NYHA class IV symptoms, JVD decreased,,Lasix increased to 80 mg q.8 hours. Close monitoring of I and O, daily weights. BMP, magnesium in a.m. consider right heart catheterization, potentially or Saturday for further evaluation of fluid status. 4. Hyponatremia: Improved to 130 today, fluid restriction of 1500 mL a day. Aldactone discontinued. 5. Hyperlipidemia: On atorvastatin, repeat fasting lipid and liver in 8 weeks. 10/24/16 14:48 Subjective: Patient denies of any chest pressure or pain, reports orthopnea has improved, denies of any palpitations, lightheadedness, near-syncope or syncopal events. Reviewed/Discussed With: family (Patient ), other (Dr Moore, Dr Trejo) Objective: Vital Signs (8 Hrs) Temp Pulse Resp BP Pulse Ox 10/24/16 11:55 36.3 C 75 22 H 95/64 L 96 10/24/16 08:05 36.4 C 79 17 93/65 L 97 Intake/Output (24 Hrs) 10/23/16 10/24/16 10/25/16 05:59 05:59 05:59 Intake Total 2350 1140 550 Output Total 2625 1795 1500 Balance -794 -613 -702 Intake: Oral (ml) 2290 1140 500 IV Infused (ml) 60 50 Furosemide 80 mg In D5w 60 50 ml @ 100 mls/hr IV ONCE ONE Rx#:[id number] Furosemide 80 mg In D5w 50 50 ml @ 100 mls/hr IV Q8H TIFFANY Rx#:[id number] Output: Urine (ml) 2625 1795 1500 Urinal 2625 1795 600 Toilet 900 Other: Weight 63.8 kg 63.4 kg Number of Voids Urinal 3 5 Toilet 1 2 Number of Stools Urinal 1 Toilet 1 1 Result Diagrams: 10/21/16 04:15 10/24/16 04:18 Cardiac Labs: Cardiac Lab Results (72 Hrs) 10/22/16 04:41 Troponin I 0.208 H - Physical Exam Constitutional: no apparent distress Ears, Nose, Mouth, Throat: moist mucous membranes Cardiovascular: regular rate and rhythm, no rubs, diastolic murmur (2 to 3/6 right upper sternal border.), jugular vein distention (4-5 cm above sternal notch at 45 degree angle), pulses symmetric bilat, No carotid bruit Peripheral Pulses: 1+: dorsalis-pedis (R), dorsalis-pedis (L), 2+: carotid (R), carotid (L) Respiratory: other (Lungs are clear, but diminished in bases bilateral, no rhonchi, rales, or wheezing noted.) Gastrointestinal: normoactive bowel sounds, no masses Skin: warm, no edema Neurologic: AAOx3 Psychiatric: cooperative, interactive, following commands, not anxious ICD10 Worksheet Patient Problems: Problems Problem Status Diagnosed Chest pain Acute
[2016-10-24] MEDS ORDERED: GADOBUTROL 10 ML VIAL IVP ONE (17:38)
[2016-10-25 06:08] LABS: ANION GAP 10 mEq/L (8-16); CALCIUM 8.8 mg/dL (8.5-10.4); CARBON DIOXIDE 25 mEq/l (22-31); CHLORIDE 99 mEq/L (97-110); CREATININE 0.8 mg/dL (0.7-1.3); GLOMERULAR FILTRATION RATE > 60; GLUCOSE 86 mg/dL (70-100); MAGNESIUM 1.9 mg/dL (1.6-2.3); POTASSIUM 4.6 mEq/L (3.5-5.2); SODIUM 134 mEq/L (134-144)
[2016-10-25] MEDS: FUROSEMIDE 100 MG/10 ML VIAL IVP SCH (06:32)
[2016-10-25] MEDS: ATORVASTATIN CALCIUM 40 MG TAB PO SCH (08:56)
[2016-10-25] MEDS: ASPIRIN 325 MG TAB PO SCH (08:57)
[2016-10-25] MEDS: ENOXAPARIN 60 MG/0.6 ML SYR SC SCH ×2 (08:57→23:06)
[2016-10-25] MEDS: SENNOSIDES/DOCUSATE SODIUM TAB PO SCH ×2 (08:57→22:58)
[2016-10-25] MEDS ORDERED: TEARS/DEXTRAN 70/HYPROMELLOSE 15 ML OPHT.BTL EACHEYE PRN (09:06)
[2016-10-25] MEDS: POTASSIUM CL 20 MEQ/15 ML UDCUP PO SCH (10:32)
[2016-10-25] MEDS: LISINOPRIL 2.5 MG TAB PO SCH (10:32)
--- NOTE | 2016-10-25 11:21 | MR ---
Cardiac MRI Examination, Without and With Contrast, Including Functional and Anatomic Imaging October 24, 2016 History: Heart failure and diminished LVEF. Evaluate for myocardial viability. Technique: Anatomic imaging was obtained utilizing double and triple inversion-recovery sequences in the short and long axes. Functional data were also obtained utilizing FIESTA imaging in the short and long axes. After intravenous administration of 10 mL Gadavist, perfusion imaging was obtained at res t, with myocardial delayed enhanced imaging in the short and long axes. Findings: There are moderate bilateral pleural effusions compatible with congestive heart failure, as sociated with bilateral lower lobe atelectasis. Cardiac evaluation demonstrates a 3 cm area of severe myocardial thinning involving the left ventricu lar apex, associated with dyskinesis in systole, and diffuse transmural wall enhancement after delaye d contrast-enhanced imaging. Imaging features are compatible with a left ventricular apical aneurysm with secondary dyskinesis. No additional areas of abnormal myocardial enhancement identified. Functional imaging is also abnormal. The LVEF is diminished at 23.3%. Stroke volume is also diminishe d at 40 mL. The left ventricle is dilated with an end systolic volume of 130.4 mL. Functional paramet ers are recorded on the worksheet attached to the examination. The right ventricle and tricuspid valve function normally. The mitral valve also appears to function normally. Aortic valve is trileaflet. Impression: 1. 3-cm transmural left ventricular apical aneurysm, with associated dyskinesis in systole. 2. Diminished LVEF. Left ventricular enlargement. 3. Moderate bilateral pleural effusions and bilateral lower lobe atelectasis compatible with congesti ve heart failure.
[2016-10-25] MEDS ORDERED: DOBUTamine/DEXTROSE 250 ML IV ONE (11:30)
[2016-10-25] MEDS ORDERED: TEMAZEPAM 15 MG CAP PO PRN (14:35)
--- NOTE | 2016-10-25 14:54 | PDCARPN ---
Cardiology Progress Note Chief Complaint: Patient reports ongoing dry eyes. Assessment/Plan: Assessment: 70-year-old male admitted in 10/20/2016 chest pain and shortness of breath for 3 weeks. He has significant history of hypertension. Echocardiogram (10/20/2016 ) showed LV mildly dilated with concentric LVH, systolic function was severely reduced with EF of 15-20%, mild anterior septal to apical hypokinesis, inferior is akinesis, [id number] MR, to trace TR, moderate to severe AI, will large pleural effusion. Underwent cardiac catheterization on 10/20/[address] Montenegro, found to have severe ischemic cardiomyopathy with multivessel disease, abdominal aortic aneurysm which is infrarenal with associated right common iliac disease. Cardiac MR done last 10/24/2016, results are pending. 3.4 kilos weight loss last evening, remains in sinus rhythm today. Denies chest pain, reports significant improvement in shortness of breath today. Reports ongoing episodes of dry eyes. Potassium remains stable. Cardiac MR pending. patient reports ongoing dry eyes. Plan: 1. CAD: Multivessel, considering total revascularization by CABG. Currently on ASA. BB on hold for hypotension, and to allow for better diuresis. Cardiac MRI results pending to determine viability. Have discussed with CT surgery , would also like patient to undergo dobutamine stress echo to evaluate LV function, scheduled to be done by Dr. Moore in the [facility] later today. 2. Valvular heart disease: Wide open AI, will need replaced with CABG. 3. Ischemic cardiomyopathy with systolic heart failure: EF 15-20%, NYHA class III-IV symptoms, weight is down 3.4 kilos since last p.m., jugular vein distention is gone, patient reports improvement with ANTHONY. Will transition to oral Lasix today, continue monitoring electrolytes closely, potassium level at 4 :00 p.m., consider right heart catheterization potentially on Saturday to evaluate further fluid status. 4. Hyponatremia: Improvement today, continue fluid restrictions, transition to oral diuretics. 5. Hyperlipidemia: On atorvastatin, repeat fasting lipid and liver in 8 weeks. 6. Keratoconjunctivitis sicca: Artificial tears ordered for use. 10/25/16 14:44 Subjective: Patient denies of any chest pain or pressure. Reports improvement in shortness of breath with exertion, denies of any orthopnea. Denies of any palpitations, lightheadedness, improvement in fatigue symptoms. Reviewed/Discussed With: family (), multidisciplinary team (Patient's RN), other (Dr Moore, Mr Trejo) Objective: Vital Signs (8 Hrs) Temp Pulse Resp BP Pulse Ox 10/25/16 07:49 36.6 C 87 18 123/85 H 98 Intake/Output (24 Hrs) 10/24/16 10/25/16 10/26/16 05:59 05:59 05:59 Intake Total 1140 1000 Output Total 1795 3620 475 Balance -644 -1421 -239 Intake: Oral (ml) 1140 950 IV Infused (ml) 50 Furosemide 80 mg In D5w 50 50 ml @ 100 mls/hr IV Q8H [facility] Rx#:[id number] Output: Urine (ml) 1795 3620 475 Urinal 1795 600 475 Toilet 3020 Other: Weight 63.4 kg 60.7 kg Number of Voids Urinal 5 Toilet 1 1 Number of Stools Urinal 1 Toilet 1 1 Result Diagrams: 10/21/16 04:15 10/25/16 04:44 - Physical Exam Constitutional: WDWN, healthy appearing Eyes: scleral irritation Ears, Nose, Mouth, Throat: moist mucous membranes Cardiovascular: regular rate and rhythm, no rubs, no gallops, diastolic murmur ( 2 to 3/6 right upper sternal border.), jugular vein distention ( 3-4 cm above sternal notch at 45 degree angle), pulses symmetric bilat, No carotid bruit Peripheral Pulses: 1+: dorsalis-pedis (R), dorsalis-pedis (L), 2+: carotid (R), carotid (L) Respiratory: other ( lungs are clear, no rhonchi, rales, wheezing, accessary muscle use, no intercostal muscle retraction noted.) Gastrointestinal: normoactive bowel sounds, no masses Skin: no rashes Neurologic: AAOx3, CN II-XII grossly intact Psychiatric: cooperative, interactive, following commands ICD10 Worksheet Patient Problems: Problems Problem Status Diagnosed Chest pain Acute
[2016-10-25] MEDS ORDERED: FUROSEMIDE 40 MG TAB PO SCH (15:00)
[2016-10-25] MEDS: FUROSEMIDE 80 MG TAB PO SCH (15:31)
[2016-10-25 16:24] LABS: POTASSIUM 4.8 mEq/L (3.5-5.2)
--- NOTE | 2016-10-25 16:53 | ECHO ---
[id number] + + [address] : : [place] [address] : : [phone] + + Adult Echocardiographic Report + + :Name: Barbara COREA Date: 10/25/2016 12:50 PM : : Admission Number: [id number] Location: [facility]: :: 1945Gender: Male : :Age: 70 yrs Race: PTD : :Reason For Study: Eval for LV apical thrombus : + + Left Ventricle No apical LV thrombus present. Conclusion Definity imaging enhancer used to better visualize LV apex. 1ml (0.165mg) injected. 1. This is a limited echocardiogram with definity contrast to evluate the left ventricular apex. 2. 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 There is no evidence of apical thrombus. Final Reading Physician: Jaquan Moore MD electronically signed on 10/25/2016 04:52 PM Ordering Physician: Sadi Javier Performed By: Ruthy Mcdermott [facility]
--- NOTE | 2016-10-25 17:06 | ECHO ---
[id number] + + [address] : : [place] [address] : : [phone] + + Stress Echocardiographic Report + + :Name: Barbara COREA Date: 10/25/2016 12:58 PM : : Admission Number: [id number] Location: [facility]: :[facility]: 1945Gender: Male : :Age: 70 yrs Race: PTD : :Reason For Study: Eval for LV viability : + + Mitral Valve Mild to moderate eccentric mitral regurgitation. Conclusion 1. This is a dobutamine stress echocardiogram to evaluate myocardial viability. 2. Pt was given incremental doses of dobutamine up to 15 mcg/kg/min. 3. There was improvment in the mid anterior, mid lateral, basal posterior, and the basal and mid inferior segments suggesting viability. 4. There was improvement in 5 cardiac segments suggesting a potential for an improvment in LVEF with revascularization. The apex was akinetic and demonstrated no viability. Reading Physician: Jaquan Moore MD electronically signed on 10/25/2016 05:05 PM Ordering Physician: Sadi Javier Performed By: Ruthy Mcdermott RDCS
[2016-10-26 05:01] LABS: INR 1.02 (0.83-1.16); PROTIME(PATIENT) 13.3 SEC (12.0-15.0)
[2016-10-26 05:02] LABS: APTT 45.3 SEC (23.0-38.0)
[2016-10-26 05:08] LABS: ANION GAP 10 mEq/L (8-16); CARBON DIOXIDE 25 mEq/l (22-31); CHLORIDE 99 mEq/L (97-110); CREATININE 0.9 mg/dL (0.7-1.3); GLOMERULAR FILTRATION RATE > 60; GLUCOSE 101 mg/dL (70-100); SODIUM 134 mEq/L (134-144)
[2016-10-26] MEDS ORDERED: NS 1,000 ML IV ONE (06:00)
[2016-10-26] MEDS ORDERED: DIAZEPAM 5 MG TAB PO ONE (06:00)
[2016-10-26] MEDS ORDERED: diphenhydrAMINE 25 MG CAP PO ONE (06:00)
--- NOTE | 2016-10-26 09:13 | CPEKG ---
Heart Rate: 79 RR Interval: 759 P-R Interval: 168 QRSD Interval: 124 QT Interval: 380 QTC Interval: 436 P [place]: 48 QRS [place]: 47 T Wave [place]: 189 EKG Severity - ABNORMAL ECG - EKG Impression: SINUS RHYTHM EKG Impression: LEFT ATRIAL ABNORMALITY EKG Impression: NONSPECIFIC INTRAVENTRICULAR CONDUCTION DELAY EKG Impression: LVH WITH SECONDARY REPOLARIZATION ABNORMALITY EKG Impression: PROBABLE INFERIOR INFARCT, AGE INDETERMINATE EKG Impression: ANTERIOR INFARCT, AGE INDETERMINATE Electronically Signed By: Rashi Montenegro 26-Oct-2016 19:33:15
[2016-10-26] MEDS: ATORVASTATIN CALCIUM 40 MG TAB PO SCH (09:27)
[2016-10-26] MEDS: ASPIRIN 325 MG TAB PO SCH (09:27)
[2016-10-26] MEDS: FUROSEMIDE 80 MG TAB PO SCH ×2 (09:27→18:00)
[2016-10-26] MEDS: LISINOPRIL 2.5 MG TAB PO SCH (09:27)
[2016-10-26] MEDS: POTASSIUM CL 20 MEQ/15 ML UDCUP PO SCH (09:28)
[2016-10-26] MEDS: SENNOSIDES/DOCUSATE SODIUM TAB PO SCH ×2 (09:28→20:59)
[2016-10-26] MEDS ORDERED: MIDAZOLAM 2 MG/2 ML VIAL ONE (12:39)
[2016-10-26] MEDS ORDERED: fentaNYL 100 MCG/2 ML INJ ONE (12:39)
[2016-10-26] MEDS ORDERED: LIDOCAINE 1% 30 ML SDV ONE (12:39)
[2016-10-26] MEDS ORDERED: IOPAMIDOL (ISOVUE-370) 150 ML BTL IV ONE (12:40)
--- NOTE | 2016-10-26 13:20 | PDCARPN ---
Cardiology Progress Note Chief Complaint: Patient reports is tired to be in hospital. Ultimately feeling better. Assessment/Plan: Assessment: 70-year-old male admitted in 10/20/2016 chest pain and shortness of breath for 3 weeks. He has significant history of hypertension. Echocardiogram (10/20/2016 ) showed LV mildly dilated with concentric LVH, systolic function was severely reduced with EF of 15-20%, mild anterior septal to apical hypokinesis, inferior is akinesis, [id number] MR, to trace TR, moderate to severe AI, will large pleural effusion. Underwent cardiac catheterization on 10/20/[address] Montenegro, found to have severe ischemic cardiomyopathy with multivessel disease, abdominal aortic aneurysm which is infrarenal with associated right common iliac disease. Cardiac MRI done on 10/24/2016 showed 3 cm transmural left ventricular apical aneurysm with association of dyskinesis in systole, diminished LVEF of 23.3%, LV enlargement, moderate bilateral pleural effusions and bilateral lower lobe atelectasis comparable with congestive heart failure. Limited echo done on 10/25/2017 done with definity to evaluate LV apex, showing it was akinetic, but no apical thrombus. Stress echo has done of her viability on 10/25/2016 showed overall there was 5 cardiac segments suggesting a potential improvement in LVEF with revascularization. Saline was akinetic and demonstrated no viability. Patient down 0.5 kilos today. Patient is down 0.5 kilos today, denies of any chest pain, reports improvement in shortness of breath, has remained in sinus rhythm on monitor. Reports issue with dry eyes as resolve. Plan: 1. CAD: Multivessel, considering total revascularization by CABG. Currently on ASA. BB on hold for hypotension, and to allow for better diuresis. Will determine today after right heart catheterization if will restart on beta- blockers. MRI and dobutamine stress do suggest myocardial viability with reperfusion. Discussed with , considering to take patient for surgery on Saturday. 2. Valvular heart disease: Moderate to severe AI, will need replaced with CABG. 3. Ischemic cardiomyopathy with systolic heart failure: EF 15-20%, NYHA class III-IV symptoms, weight is down 0.5 kilos from last night., no significant JVD. Continue on current dose of oral Lasix, potassium is been stable. Planning right heart catheterization today with Dr. Moore for further evaluation of fluid status.. 4. Hyponatremia: Improvement today, continue fluid restrictions, transition to oral diuretics. 5. Hyperlipidemia: On atorvastatin, repeat fasting lipid and liver in 8 weeks. 6. Keratoconjunctivitis sicca: Artificial tears ordered for use. 10/26/16 13:09 Subjective: Patient reports shortness of breath has improved significantly, he feels normal . Still limited with activity, on on oxygen therapy to maintain SpO2 greater than 90%. Denies of any chest pain, palpitations, lightheadedness, near- syncope or syncopal events. Reviewed/Discussed With: family ( and Son), other (Dr Trejo and Dr Moore) Objective: Vital Signs (8 Hrs) Temp Pulse Resp BP Pulse Ox 10/26/16 08:00 36.4 C 78 16 112/74 95 Intake/Output (24 Hrs) 10/25/16 10/26/16 10/27/16 05:59 05:59 05:59 Intake Total 1000 300 Output Total 3620 1150 325 Balance -2620 -850 -325 Intake: Oral (ml) 950 300 IV Infused (ml) 50 Furosemide 80 mg In D5w 50 50 ml @ 100 mls/hr IV Q8H [facility] Rx#:[id number] Output: Urine (ml) 3620 1150 325 Urinal 600 475 325 Toilet 3020 675 Other: Weight 60.7 kg 60.1 kg Intake Quantity Yes Sufficient Number of Voids Toilet 1 Number of Stools Toilet 1 Result Diagrams: 10/21/16 04:15 10/26/16 03:59 - Physical Exam Constitutional: WDWN, no apparent distress Ears, Nose, Mouth, Throat: moist mucous membranes Cardiovascular: regular rate and rhythm, no murmurs, no rubs, diastolic murmur ( 3/6 right upper sternal border), pulses symmetric bilat, No jugular vein distention, No carotid bruit Peripheral Pulses: 1+: dorsalis-pedis (R), dorsalis-pedis (L), 2+: carotid (R), carotid (L) Respiratory: other (Lungs clear, no rhonchi, rales or wheezes) Gastrointestinal: normoactive bowel sounds Skin: no rashes, warm, no edema Neurologic: AAOx3 Psychiatric: cooperative, interactive, following commands ICD10 Worksheet Patient Problems: Problems Problem Status Diagnosed Chest pain Acute
[2016-10-26] MEDS ORDERED: HEPARIN 10,000 UNIT/10 ML MDV IVP PRN (16:28)
[2016-10-26] MEDS: HEPARIN/DEXTROSE 500 ML IV SCH (20:59)
--- NOTE | 2016-10-26 21:11 | CPIP ---
[f rep st] INVASIVE CARDIAC PROCEDURE DATE OF PROCEDURE: 10/26/2016 PROCEDURE: Right heart catheterization. INDICATION: 1. Cardiomyopathy. 2. Congestive heart failure. 3. Preoperative evaluation. ACCESS: The patient was prepped and draped in sterile fashion. 1% lidocaine was used to anesthetize the right and left inguinal regions. A 7-Ghanaian introducer sheath was placed selectively into the r ight common femoral vein via modified Seldinger technique. A 7-Ghanaian introducer sheath was placed s electively into the left common femoral artery via modified Seldinger technique. Right heart cathete rization: A right heart catheter was advanced into the right atrium and pressure obtained. The righ t atrial pressure was 7 mmHg. The catheter was then advanced in the right ventricle and pressure obt ained. The right ventricular pressure was 35/10 mmHg. The catheter was then advanced in the pulmona ry artery position and pressure obtained. The pulmonary artery pressure was 32/15 mmHg with a mean p ulmonary artery pressure 21 mmHg. The catheter was then advanced in the wedge position and pressure obtained. The pulmonary capillary wedge pressure was 16 mmHg. Cardiac output was 4.1 L/minute. Car diac index was 2.43. Femoral artery saturation was 98.4%. Pulmonary artery saturation was 72.1%. COMPLICATIONS: None. CONCLUSIONS: 1. No pulmonary hypertension. 2. Mildly elevated pulmonary capillary wedge pressure. 3. Well-compensated congestive heart failure at this time in anticipation of surgery. /[id number]/MODL
[2016-10-27 04:12] LABS: HEMATOCRIT 42.7 % (40.0-51.0); HEMOGLOBIN 15.2 g/dL (13.7-17.5); MEAN CELL HEMOGLOBIN 31.1 pg (27.9-34.1); MEAN CELL HEMOGLOBIN CONCENTR. 35.6 g/dL (32.4-36.7); MEAN CELL VOLUME 87.5 fL (81.5-99.8); RED BLOOD CELL COUNT 4.88 10^6/uL (4.40-6.38); RED CELL DISTRIBUTION WIDTH 12.3 % (11.5-15.2)
[2016-10-27 04:24] LABS: ANION GAP 10 mEq/L (8-16); CARBON DIOXIDE 26 mEq/l (22-31); CHLORIDE 101 mEq/L (97-110); CREATININE 0.9 mg/dL (0.7-1.3); GLOMERULAR FILTRATION RATE > 60; GLUCOSE 103 mg/dL (70-100); POTASSIUM 3.8 mEq/L (3.5-5.2); SODIUM 137 mEq/L (134-144)
[2016-10-27] MEDS: LISINOPRIL 2.5 MG TAB PO SCH (10:06)
[2016-10-27] MEDS: ATORVASTATIN CALCIUM 40 MG TAB PO SCH (10:06)
[2016-10-27] MEDS: ASPIRIN 325 MG TAB PO SCH (10:06)
[2016-10-27] MEDS: POTASSIUM CL 20 MEQ/15 ML UDCUP PO SCH (10:07)
[2016-10-27] MEDS: FUROSEMIDE 80 MG TAB PO SCH ×2 (10:07→15:33)
--- NOTE | 2016-10-27 10:32 | SOAPPROG ---
[facility] Progress Note Assessment/Plan: 1. CAD - Pt has severe 3VD with an EF of 15 to 20%. --> Anticipate CABG on 10/29/16 --> Continue medical management with asa, coreg, lisinopril, and atorvastatin 2. CM - Pt has an ICM with an EF of 15 to 20%. DSE and MRI demonstrated a scarred apex with viability in the remaining cardiac segments. --> Anticipate CABG +/- apical reconstruction procedure on 10/29/16. 3. CHF - Pt was admitted with an acute systolic heart failure exacerbation. Precipitated by an ICM. He is currently euvolemic by right heart catheterization. Base is therefore 59 KG and base BNP is 3050. --> Continue coreg, lisinopril, and lasix 4. AI - Pt has moderate to severe AI. --> AVR at time of CABG on 10/29/16. Subjective: No chest pain No orthopnea or PND limited ambualation. ? regarding surgery. Objective: Vital Signs Temp Pulse Resp BP Pulse Ox 36.6 C 77 17 97/63 L 97 10/27/16 08:00 10/27/16 08:00 10/27/16 08:00 10/27/16 08:00 10/27/16 08:00 Laboratory Results 10/27/16 03:55 10/27/16 03:55 10/26/16 10/27/16 10/28/16 05:59 05:59 05:59 Intake Total 300 550 Output Total 1150 1975 250 Balance -850 -1425 -250 PT 13.3 SEC (12.0-15.0) 10/26/16 03:59 INR 1.02 (0.83-1.16) 10/26/16 03:59 Physical Exam - Physical Exam General Appearance: alert, no apparent distress Neck: other (10 cm) Respiratory: lungs clear Cardiac/Chest: regular rate, rhythm, diastolic murmur Abdomen: normal bowel sounds, non-tender, soft Skin: normal color Extremities: other (No hematoma or echymosis at R and L inguinal access site.), No pedal edema Neuro/Psych: alert, oriented x 3 ICD10 Worksheet Patient Problems: Problems Problem Status Diagnosed Chest pain Acute
[2016-10-27] MEDS: SENNOSIDES/DOCUSATE SODIUM TAB PO SCH ×2 (10:35→20:57)
[2016-10-27] MEDS: CARVEDILOL 3.125 MG TAB PO SCH (18:13)
[2016-10-27] MEDS: HEPARIN/DEXTROSE 500 ML IV SCH (22:13)
[2016-10-28] MEDS: CARVEDILOL 3.125 MG TAB PO SCH (08:48)
[2016-10-28] MEDS: ATORVASTATIN CALCIUM 40 MG TAB PO SCH (08:48)
[2016-10-28] MEDS: ASPIRIN 325 MG TAB PO SCH (08:48)
[2016-10-28] MEDS: LISINOPRIL 2.5 MG TAB PO SCH (08:48)
[2016-10-28] MEDS: FUROSEMIDE 80 MG TAB PO SCH (08:48)
[2016-10-28] MEDS: POTASSIUM CL 20 MEQ/15 ML UDCUP PO SCH (08:49)
[2016-10-28] MEDS: SENNOSIDES/DOCUSATE SODIUM TAB PO SCH ×3 (08:53→21:06)
--- NOTE | 2016-10-28 12:25 | SOAPPROG ---
[facility] Progress Note Assessment/Plan: 1. CAD - Pt has severe 3VD with an EF of 15 to 20%. --> Anticipate CABG on 10/29/16 --> Continue medical management with asa, coreg, lisinopril, and atorvastatin 2. CM - Pt has an ICM with an EF of 15 to 20%. DSE and MRI demonstrated a scarred apex with viability in the remaining cardiac segments. --> Anticipate CABG +/- apical reconstruction procedure on 10/29/16. 3. CHF - Pt was admitted with an acute systolic heart failure exacerbation precipitated by an ICM. He is currently euvolemic by right heart catheterization. Base is therefore 59 KG and base BNP is 3050. --> Continue coreg, lisinopril, and lasix 4. AI - Pt has moderate to severe AI. --> AVR at time of CABG on 10/29/16. Subjective: No chest pain No orthopnea or PND Ready for surgery in the am Objective: Vital Signs Temp Pulse Resp BP Pulse Ox 36.7 C 70 19 120/71 98 10/28/16 08:00 10/28/16 08:00 10/28/16 08:00 10/28/16 08:00 10/28/16 08:00 Laboratory Results 10/27/16 03:55 10/27/16 03:55 10/27/16 10/28/16 10/29/16 05:59 05:59 05:59 Intake Total 550 1662 Output Total 1974 1999 Balance -1425 -541 PT 13.3 SEC (12.0-15.0) 10/26/16 03:59 INR 1.02 (0.83-1.16) 10/26/16 03:59 Physical Exam - Physical Exam General Appearance: alert, no apparent distress Respiratory: lungs clear Cardiac/Chest: regular rate, rhythm, diastolic murmur Skin: normal color Extremities: No pedal edema Neuro/Psych: alert, oriented x 3 ICD10 Worksheet Patient Problems: Problems Problem Status Diagnosed Chest pain Acute
[2016-10-28] MEDS ORDERED: CHLORHEXIDINE GLUC HIBICLENS 118 ML BTL TP SCH (21:00)
[2016-10-29] MEDS: MUPIROCIN 2% 22 GM OINT NS SCH ×3 (00:56→21:08)
[2016-10-29] MEDS ORDERED: SODIUM BICARBONATE 20 MEQ, LIDOCAINE 1% 10 ML in NORMOSOL-R 1,000 ML MISC ONE (06:00)
[2016-10-29] MEDS ORDERED: DOBUTamine/DEXTROSE 250 ML IV ONE (06:00)
[2016-10-29] MEDS ORDERED: NS 1,000 ML IV ONE (06:00)
[2016-10-29] MEDS ORDERED: PHENYLEPHRINE HCL 50 MG in NS 250 ML IV ONE (06:00)
[2016-10-29] MEDS ORDERED: AMINOCAPROIC ACID 5 GM/20 ML VIAL IV ONE (06:00)
[2016-10-29] MEDS ORDERED: ceFAZolin 2 GM/DEXTROSE 100 ML IV ONE (06:00)
[2016-10-29] MEDS ORDERED: CITRATE DEXTROSE SOLN 500 ML BAG MISC ONE (06:00)
[2016-10-29] MEDS ORDERED: NOREPINEPHRINE BITARTRATE 16 MG in NS 250 ML IV ONE (06:00)
[2016-10-29] MEDS ORDERED: INSULIN REGULAR HUMAN 100 UNIT in NS 100 ML IV ONE (06:00)
[2016-10-29] MEDS ORDERED: VERAPAMIL 5 MG, NITROGLYCERIN 2.5 MG, HEPARIN 500 UNIT, SODIUM BICARBONATE 0.2 MEQ in L... MISC ONE (06:00)
[2016-10-29] MEDS ORDERED: MANNITOL 25% 12.5 GM/50 ML VIAL IV ONE (06:00)
[2016-10-29] MEDS ORDERED: ALBUMIN 5% 250 ML BOTTLE IV ONE ×2 (06:31→12:29)
[2016-10-29] MEDS ORDERED: PROTAMINE SULFATE 50 MG/5 ML VIAL IVP ONE (06:31)
[2016-10-29] MEDS ORDERED: CALCIUM CHLORIDE 1 GM/10 ML INJ ONE (06:32)
[2016-10-29] MEDS ORDERED: niCARdipine/NACL/200 ML BAG IV ONE (06:32)
[2016-10-29] MEDS ORDERED: NA BICARBONATE 50 MEQ/50 ML VIAL ONE ×2 (06:32→14:55)
[2016-10-29] MEDS ORDERED: LIDOCAINE 2% 100 MG/5 ML SYR IVP ONE (06:32)
[2016-10-29] MEDS ORDERED: AMINOCAPROIC ACID 5 GM/20 ML VIAL ONE (06:32)
[2016-10-29] MEDS ORDERED: DOPamine/DEXTROSE/250 ML BAG IV ONE (06:32)
[2016-10-29] MEDS ORDERED: MILRINONE/DEXTROSE/100 ML BAG IV ONE ×2 (06:32→08:18)
[2016-10-29] MEDS ORDERED: POTASSIUM Cl (KCl) 20 MEQ/50 ML BAG IV ONE (06:32)
[2016-10-29] MEDS ORDERED: ADENOSINE 6 MG/2 ML VIAL ONE (06:33)
[2016-10-29] MEDS ORDERED: AMIODARONE HCL 150 MG/3 ML VIAL ONE (06:33)
[2016-10-29] MEDS ORDERED: MAGNESIUM SULFATE 1 GM/2 ML VIAL ONE (06:33)
[2016-10-29] MEDS ORDERED: methylPREDNISolone SOD SUCC 1 GM/8 ML VIAL ONE (06:33)
[2016-10-29] MEDS ORDERED: HEPARIN 10,000 UNIT/10 ML MDV ONE (06:34)
[2016-10-29] MEDS ORDERED: ceFAZolin 1 GM VIAL ONE (06:34)
[2016-10-29] MEDS ORDERED: CITRATE DEXTROSE SOLN 500 ML BAG ONE (06:49)
[2016-10-29] MEDS ORDERED: PAPAVERINE HCL 60 MG/2 ML SDV ONE (06:50)
[2016-10-29] MEDS ORDERED: SKIN ADHESIVE (DERMABOND) 1 EACH TP ONE (06:50)
[2016-10-29] MEDS ORDERED: VERAPAMIL 5 MG/2 ML VIAL ONE (06:51)
[2016-10-29] MEDS ORDERED: MIDAZOLAM 2 MG/2 ML VIAL ONE ×2 (06:59→10:27)
[2016-10-29] MEDS ORDERED: fentaNYL 250 MCG/5 ML INJ ONE ×2 (07:00)
[2016-10-29] MEDS ORDERED: PROPOFOL 200 MG/20 ML VIAL ONE (07:01)
[2016-10-29] MEDS ORDERED: LIDOCAINE 2% 5 ML SDV ONE (07:01)
[2016-10-29] MEDS ORDERED: ROCURONIUM 100 MG/10 ML VIAL ONE (07:01)
[2016-10-29] MEDS ORDERED: MILRINONE/DEXTROSE 100 ML IV ONE (08:00)
[2016-10-29] MEDS ORDERED: FUROSEMIDE 80 MG TAB PO SCH (09:00)
[2016-10-29] MEDS ORDERED: INSULIN REGULAR HUMAN 100 UNIT in NS 100 ML IV SCH (12:45)
[2016-10-29] MEDS ORDERED: D50W 25 GM/50 ML SYR IVP PRN (12:45)
[2016-10-29] MEDS ORDERED: MAGNESIUM SULF 2 GM/WATER 50 ML IV ONE (12:45)
[2016-10-29] MEDS ORDERED: CEPACOL LOZENGE PO PRN (12:45)
[2016-10-29] MEDS ORDERED: SODIUM CL NASAL 45 ML BTL EACHNARE PRN (12:45)
[2016-10-29] MEDS ORDERED: NS 1,000 ML IV SCH (12:45)
[2016-10-29] MEDS ORDERED: MEPERIDINE 25 MG/ML SYR IVP PRN (12:45)
[2016-10-29] MEDS ORDERED: ACETAMINOPHEN 650 MG SUPP PR PRN (12:45)
[2016-10-29] MEDS ORDERED: PANTOPRAZOLE SODIUM 40 MG in NS 100 ML IV ONE (12:45)
[2016-10-29] MEDS ORDERED: DEXMEDETOMIDINE HCL 400 MCG in NS 100 ML IV SCH (13:00)
[2016-10-29] MEDS: ASPIRIN 325 MG TAB PO SCH (13:28)
[2016-10-29] MEDS: ATORVASTATIN CALCIUM 40 MG TAB PO SCH (13:28)
[2016-10-29] MEDS: LISINOPRIL 2.5 MG TAB PO SCH (13:29)
[2016-10-29] MEDS: SENNOSIDES/DOCUSATE SODIUM TAB PO SCH ×2 (13:32→22:16)
[2016-10-29] MEDS: POTASSIUM CL 20 MEQ/15 ML UDCUP PO SCH (13:32)
--- NOTE | 2016-10-29 13:45 | POSTOPPROG ---
Post Op Note Date of Operation: 10/29/16 Surgeon: Christopher Trejo Developer Support Engineer: Dawson Espinoza Anesthesiologist: Denis Anesthesia: GET(General Endotracheal) Pre-op Diagnosis: class 4 CHF, ischemic CM, AI, MR, LV aneurysm Post-op Diagnosis: mild MR Procedure: AVR #23 Magna, CAB 4 Rizo-Lad, Jaimie-Dg1, SVG-mary RCA, Dg2, L ventriculotom Inf/Abcess present in the surg proc area at time of surgery?: No EBL: 100-500 Drains: Other (3 blakes)
--- NOTE | 2016-10-29 13:54 | DX ---
Portable chest - October 29, 2016 at 1315 hours History: Missed needle count post cardiac surgery. Technique: Two views of the chest were obtained with a second view obtained after the metallic esopha geal instrument was removed. Report given to Hamzah Melendrez at 1345. There are multiple mediastinal clips and wires without evidence of missed needle. Median sternotomy w zonia. Endotracheal tube above the kavita. Billings-Devi catheter in the right pulmonary artery. Chest tube in the left lung base. Chest tube in the right pericardiac region. Pulmonary edema pattern. Mild enl argement of the cardiac silhouette and mediastinum. No pneumothorax. Dr. Yvrose Dyer reviewed the films a lso and agrees that there are no radiopaque needles in the chest. Impression: 1. Multiple tubes and lines without pneumothorax. 2. No evidence of missed needles in the chest. Cosigned: Dr. Yvrose Dyer agrees with the findings.
[2016-10-29 14:45] LABS: BASE EXCESS -9.9 mEq/L (-2.5-2.5); BICARBONATE 19 mEq/L (22-26); MEASURED OXYGEN SATURATION 98 % (92-95); PCO2 55 mmHg (34-38); PO2 147 mmHg (65-75); TCO2 20 mEq/L (23-27)
--- NOTE | 2016-10-29 14:48 | GOP ---
[f rep st] OPERATIVE REPORT DATE OF OPERATION: 10/29/2016 SURGEON: Christopher Trejo DO VP PURCHASING: CARLEY Whitlock, who first-assisted throughout the procedure and endoscopically harvested the left vein. CARLEY Crain ANESTHESIOLOGIST: Polo Barrios PREOPERATIVE DIAGNOSIS: 1. Class 4 congestive heart failure with ischemic cardiomyopathy, and severe 3- vessel disease. 2. Severe aortic insufficiency. 3. Mild mitral insufficiency. 4. Left ventricular aneurysm. POSTOPERATIVE DIAGNOSIS: 1. Class 4 congestive heart failure with ischemic cardiomyopathy, and severe 3- vessel disease. 2. Severe aortic insufficiency. 3. Mild mitral insufficiency. 4. Left ventricular aneurysm., non-transmural 5. With evidence of mild mitral insufficiency. PROCEDURE PERFORMED: 1. Aortic valve replacement with #23 Magna bioprosthesis. 2. Left ventriculotomy. 3. Coronary artery bypass grafting x4, left internal mammary artery to the distal left anterior descending, right internal mammary artery to the first diagonal, saphenous vein graft to the second diagonal, and saphenous vein graft to the marginal right coronary artery. 4. AtriClip to the left atrial appendage. 5. Endoscopic vein harvest. FINDINGS: Patient presented with congestive heart failure and under an extensive workup, he refused destination LVAD or consideration for transplantation, and was offered high-risk surgery. DESCRIPTION OF PROCEDURE: He was brought to the operating room after consent was obtained. He was prepped and draped sterile classical manner. Monitoring lines were placed by Anesthesia. Transesophageal echo confirmed previous findings of severe aortic insufficiency with what we felt was at most mild mitral insufficiency. LV function was calculated at 18%. Sternotomy was performed. Both mammaries were harvested. Simultaneously, vein was harvested from both legs endoscopically by CARLEY Whitlock who first- assisted throughout the procedure. He was then heparinized, cannulated in the ascending aorta and right atrium. A retrograde cardioplegic catheter was also placed. Cardiopulmonary bypass was begun. We then placed a crossclamp and arrested the heart with retrograde cardioplegia initially. We then opened the aorta through a standard aortotomy and attempted to direct it down the right ostium however, it was an extremely small, subtotally occluded vessel, less than a 2 mm opening and therefore, no antegrade plegia was administered however, patient was noted to have some retrograde flow through that ostia. Topical hypothermia and formal slush was also used, as was systemic cooling. We then proceeded with excising a trileaflet valve with annular dilatation and retraction of the leaflets. A 23 mm Magna valve was sutured in place with cor knots in the supraannular position with pledgeted Tycron sutures. The aortotomy was closed in a 2-layer fashion. We then proceeded with grafting the vessels. We explored all branches of the right coronary artery, including the PDA and posterolateral, and the AV groove branch which were all without a significant lumen and almost circumferentially calcified, and essentially non-graftable. We then identified the marginal branch of the right and felt initially it was too small and diffusely diseased. We then proceeded with exploring the circumflex which again, was a very small , diffusely diseased, poor quality vessel. We then identified the patent, but stenosed, first diagonal which was a 2 mm vessel. The right internal mammary artery was brought through a lateral pericardial incision in the transverse sinus and grafted end-to-side to that vessel without difficulty and tacked to the epicardium. We then identified the second diagonal and placed a vein graft to it. It was 1.8 mm with excellent flow. It was brought off the ascending aorta with a crossclamp on in the standard fashion. We then proceeded with grafting the mammary to the distal LAD, which was a 2.2 to 2.3 mm vessel in the distal third and was again, tacked to the epicardium. At this point, I had already evaluated the left ventricle and although there was some thinning of the anterior wall and preop studies suggested a large thin- walled aneurysm, there did not appear to be a great deal of scar and in fact, when I incised the apex I found that the ventricular wall was essentially a normal thickness and the trabeculae were intact, and it was not smooth consistent with an infarct or aneurysm. For that reason, I felt that maybe the ventricle was ischemic. I felt that a BELEM procedure, which was my anticipated procedure, would be inappropriate and for that reason, I closed the ventriculotomy with interrupted 3-0 pledgeted mattress sutures. We then removed the crossclamp with suction on the ascending aortic vent and LV sump. With distention of the vessels, the marginal branch appeared larger than I initially evaluated, I rearrested the heart with antegrade cardioplegia and grafted a diffusely diseased marginal branch however, it had excellent flow down the graft, and this was brought off the ascending aorta with a side-biting clamp after being weaned from bypass. The patient then developed spontaneous cardiac activity. We de-aired through the apex with the patient in Trendelenburg and intermittent aspiration of the ascending aorta, as well as the LV sump. When no further air was identified, he was weaned from bypass. The sumps were removed. The heparin was reversed with protamine. The cannula was removed and oversewn. Four pacing wires were placed, 2 pleural and 1 mediastinal drains. Transesophageal echo confirmed a low ejection fraction however, his cardiac index shahnaz to above 2 with time and some inotropic support. He continued to improve with time, no longer needed pacing, and was in sinus rhythm at the conclusion of the procedure, and the thymic fat and pericardium were closed after heparin was reversed. Cannulas had been removed and oversewn. Two pleural and 1 mediastinal drains were placed. The sternum was closed in standard fashion, and patient was returned to ICU in stable condition. /[id number]/MODL MTDD
[2016-10-29 14:50] LABS: END TIDAL CO2 48; O2 CONCENTRATIION 100 % (0-100); P/F RATIO 147 RATIO; PRESSURE SUPPORT 7
[2016-10-29 14:51] LABS: SIMV YES
[2016-10-29] MEDS: fentaNYL 100 MCG/2 ML INJ IVP PRN ×2 (14:55→15:10)
[2016-10-29] MEDS: ceFAZolin 2 GM/DEXTROSE 100 ML IV SCH ×2 (15:00→21:56)
[2016-10-29] MEDS ORDERED: NA BICARBONATE 50 MEQ/50 ML VIAL IV ONE ×3 (15:00→22:00)
[2016-10-29] MEDS: POTASSIUM Cl (KCl) 50 ML IV PRN ×3 (15:04→17:24)
--- NOTE | 2016-10-29 15:15 | CPEKG ---
Heart Rate: 120 RR Interval: 500 P-R Interval: 164 QRSD Interval: 110 QT Interval: 336 QTC Interval: 475 P [place]: 28 QRS [place]: 70 T Wave [place]: 265 EKG Severity - ABNORMAL ECG - EKG Impression: SINUS TACHYCARDIA EKG Impression: NONSPECIFIC INTRAVENTRICULAR CONDUCTION DELAY EKG Impression: INFERIOR INFARCT, AGE INDETERMINATE EKG Impression: ANTERIOR INFARCT, ACUTE Electronically Signed By: Shameka Motley 29-Oct-2016 17:00:15
[2016-10-29] MEDS: ALBUMIN 5% 250 ML IV PRN ×2 (15:22→15:51)
--- NOTE | 2016-10-29 15:32 | DX ---
Portable Chest, Single View - October 29, 2016, at 1508 hours Indication: Open heart surgery. Comparison: Portable chest dated .October 29, 2016. Findings: The ET tube is situated with the tip 4 cm above the kavita. A right IJ [place]-Devi catheter is situated in the central right pulmonary artery. A right IJ central venous line is present with the tip in the superior vena cava. Bilateral large caliber chest tubes are in place. A mediastinal drain overlies the right side of the heart. A new prosthetic heart valve is in place Mild groundglass interstitial edema is present throughout the left or right mid lungs. No pneumothora x. Heart size is within normal limit for portable technique. Impression: 1. Support devices in good position. 2. Mild interstitial edema.
[2016-10-29] MEDS ORDERED: ALBUMIN 5% 500 ML BOTTLE IV ONE (15:42)
[2016-10-29 16:06] LABS: BASE EXCESS -3.3 mEq/L (-2.5-2.5); BICARBONATE 22 mEq/L (22-26); MEASURED OXYGEN SATURATION 98 % (92-95); PCO2 45 mmHg (34-38); PO2 139 mmHg (65-75); TCO2 24 mEq/L (23-27)
[2016-10-29 16:07] LABS: P/F RATIO 199 RATIO; SIMV YES
[2016-10-29 16:08] LABS: O2 CONCENTRATIION 70 % (0-100)
[2016-10-29] MEDS ORDERED: ALBUMIN 5% 500 ML IV ONE (16:30)
[2016-10-29 17:34] LABS: HEMATOCRIT 24.1 % (40.0-51.0); HEMOGLOBIN 8.3 g/dL (13.7-17.5); MEAN CELL HEMOGLOBIN 30.9 pg (27.9-34.1); MEAN CELL HEMOGLOBIN CONCENTR. 34.4 g/dL (32.4-36.7); MEAN CELL VOLUME 89.6 fL (81.5-99.8); RED BLOOD CELL COUNT 2.69 10^6/uL (4.40-6.38); RED CELL DISTRIBUTION WIDTH 12.9 % (11.5-15.2)
[2016-10-29 18:13] LABS: BASE EXCESS -3.2 mEq/L (-2.5-2.5); BICARBONATE 22 mEq/L (22-26); MEASURED OXYGEN SATURATION 97 % (92-95); O2 CONCENTRATIION 40 % (0-100); P/F RATIO 230 RATIO; PCO2 41 mmHg (34-38); PO2 92 mmHg (65-75); PRESSURE SUPPORT 7; TCO2 23 mEq/L (23-27)
[2016-10-29] MEDS ORDERED: FAMOTIDINE 20 MG/NACL 50 ML IV SCH (21:00)
[2016-10-29] MEDS: MILRINONE/DEXTROSE 100 ML IV SCH (21:08)
[2016-10-29 21:11] LABS: BASE EXCESS -5.3 mEq/L (-2.5-2.5); BICARBONATE 19 mEq/L (22-26); MEASURED OXYGEN SATURATION 98 % (92-95); PCO2 38 mmHg (34-38); PO2 119 mmHg (65-75); TCO2 21 mEq/L (23-27)
[2016-10-29 21:12] LABS: CPAP YES; END TIDAL CO2 40; O2 CONCENTRATIION 40 % (0-100); P/F RATIO 298 RATIO; PATIENT RATE 28; PRESSURE SUPPORT 10
[2016-10-29 21:14] LABS: HEMATOCRIT 26.8 % (40.0-51.0); HEMOGLOBIN 9.3 g/dL (13.7-17.5)
[2016-10-29] MEDS: CHLORHEXIDINE GLUCONATE 15 ML UDL PO SCH (22:14)
[2016-10-29 23:07] LABS: BASE EXCESS -3.5 mEq/L (-2.5-2.5); BICARBONATE 21 mEq/L (22-26); CPAP YES; MEASURED OXYGEN SATURATION 99 % (92-95); PCO2 38 mmHg (34-38); PO2 142 mmHg (65-75); TCO2 22 mEq/L (23-27)
[2016-10-29 23:08] LABS: END TIDAL CO2 44; O2 CONCENTRATIION 40 % (0-100); P/F RATIO 355 RATIO; PATIENT RATE 16; PRESSURE SUPPORT 10
[2016-10-30] MEDS: ALBUMIN 5% 250 ML IV PRN (02:07)
[2016-10-30] MEDS: ceFAZolin 2 GM/DEXTROSE 100 ML IV SCH ×3 (05:02→21:11)
[2016-10-30 05:13] LABS: % IMMATURE GRANULYOCYTES 0.2 % (0.0-1.1); ABSOLUTE IMMATURE GRANULOCYTES 0.02 10^3/uL (0.00-0.10); ADD DIFF? NO; ADD MORPH? NO; ADD SCAN? NO; ATYPICAL LYMPHOCYTE FLAG 20 (0-99); FRAGMENT RBC FLAG 0 (0-99); HEMATOCRIT 27.6 % (40.0-51.0); HEMOGLOBIN 9.7 g/dL (13.7-17.5); LEFT SHIFT FLG 30 (0-99); LIPEMIA HEMOLYSIS FLAG 90 (0-99); MEAN CELL HEMOGLOBIN CONCENTR. 35.1 g/dL (32.4-36.7); MEAN CELL VOLUME 88.2 fL (81.5-99.8); MEAN PLATELET VOLUME 9.9 fL (8.7-11.7); PLATELET CLUMPS FLAG 10 (0-99); PLATELET COUNT 58 10^3/uL (150-400); RED BLOOD CELL COUNT 3.13 10^6/uL (4.40-6.38); RED CELL DISTRIBUTION WIDTH 13.6 % (11.5-15.2)
[2016-10-30 05:16] LABS: ANION GAP 8 mEq/L (8-16); CALCIUM 7.4 mg/dL (8.5-10.4); CARBON DIOXIDE 22 mEq/l (22-31); CHLORIDE 117 mEq/L (97-110); CREATININE 0.8 mg/dL (0.7-1.3); GLOMERULAR FILTRATION RATE > 60; GLUCOSE 123 mg/dL (70-100); POTASSIUM 4.1 mEq/L (3.5-5.2); SODIUM 147 mEq/L (134-144)
[2016-10-30] MEDS ORDERED: HEPARIN 5,000 UNIT/0.5 ML SYR SC SCH (06:00)
[2016-10-30] MEDS: HEPARIN 5,000 UNIT/0.5 ML SYR SC SCH ×2 (06:16→08:52)
[2016-10-30] MEDS ORDERED: ALBUMIN 5% 250 ML IV ONE (06:43)
--- NOTE | 2016-10-30 06:47 | SOAPPROG ---
SOAP Progress Note Assessment/Plan: POD #1: CABGx4 (HATCH-LAD, RACHANA-D1, SVG-D2, SVG-Krupa RCA), AVR #23 Magna bioprosthesis, left ventriculotomy, AtriClip RANJEET Drips: levophed 4.5, dopamine 4, milrinone 0.375 Severe 3-vessel disease with ICM s/p CABGx4 - Wean dopamine off as tolerated for CI goal 2.2 - ASA for graft thromboprophylaxis, SQ heparin for DVT prophylaxis once platelets > 100 - D/C FC, [place]/AL to remain while on pressors/inotropes - OOB to chair - Bedside swallow evaluation by RN Severe AI s/p AVR with #23 Magna bioprosthesis - f/u ECHO in approx 2 days to evaluate valve function - Drips/lines/activity as per CABG mgmt Left ventricular aneurysm s/p ventriculotomy - LV aneurysm found to be non- transmural with normal muscle thickness without signs of infarction Acute blood loss anemia with coagulopathy - CT output serosanguineous - Transfuse 1U PRBC this AM Class IV CHF, with systolic dysfunction, pre-op EF 20% - Lasix prn - RONNELL/BB when appropriate 10/30/16 07:46 Subjective: Feels tired. Pain well-controlled. No SOB. Objective: Vital Signs Temp Pulse Resp BP Pulse Ox 37.4 C 104 H 18 99/52 L 100 10/30/16 06:00 10/30/16 06:00 10/30/16 06:00 10/30/16 06:00 10/30/16 06:00 Laboratory Results 10/30/16 04:55 10/30/16 04:55 10/29/16 10/30/16 10/31/16 05:59 05:59 05:59 Intake Total 1610 1598 Output Total 1200 2705 80 Balance 410 -1107 -80 PT 13.3 SEC (12.0-15.0) 10/26/16 03:59 INR 1.02 (0.83-1.16) 10/26/16 03:59 Physical Exam - Physical Exam General Appearance: alert, no apparent distress EENT: No scleral icterus (R), No scleral icterus (L) Neck: normal inspection Respiratory: lungs clear, No respiratory distress, No crackles, No rales, No rhonchi Cardiac/Chest: normal peripheral pulses, tachycardia Abdomen: non-tender, soft, No distended Skin: normal color, warm/dry Extremities: No pedal edema, No swelling Neuro/Psych: no motor/sensory deficits, alert, normal mood/affect, oriented x 3 ICD10 Worksheet Patient Problems: Problems Problem Status Diagnosed Acute blood loss anemia Acute CHF (congestive heart failure), NYHA class III Acute Chest pain Acute Ischemic cardiomyopathy Acute S/P CABG x 4 Acute 10/29/16 S/P aortic valve replacement with bioprosthetic valve Acute 10/29/16 Severe aortic insufficiency Acute CAD, multiple vessel Chronic
[2016-10-30] MEDS: ASPIRIN 325 MG TAB PO SCH (08:09)
[2016-10-30] MEDS: SENNOSIDES/DOCUSATE SODIUM TAB PO SCH ×2 (08:09→20:00)
[2016-10-30] MEDS: HYDROCODONE/APAP 5/325 TAB PO PRN ×3 (08:09→15:38)
[2016-10-30] MEDS: CHLORHEXIDINE GLUCONATE 15 ML UDL PO SCH ×3 (08:10→21:08)
--- NOTE | 2016-10-30 08:27 | DX ---
Portable chest x-ray 0 557 hours. History: Follow-up open heart surgery. Findings: Comparison to October 29, 2016. [place]-Devi catheter, central line, and left-sided chest tube remain in place. The ET tube has been rem ivan. Left atrial appendage clamp and cardiac valve replacements are noted as before. Heart size arielle ins mildly enlarged. Pulmonary vasculature is prominent centrally although slightly improved since th e prior study. Haziness at the right lung base probably represents fluid in the major fissure. There is no new consolidation. Osseous structures are unchanged. Impression: 1. Interventional tubes remain in place except for removal of the ET tube. 2. Haziness at the right lung base probably represents fluid in the major fissure. 3. Mild fluid overload pattern improved since the prior study.
[2016-10-30] MEDS: MUPIROCIN 2% 22 GM OINT NS SCH ×2 (08:35→21:08)
[2016-10-30] MEDS: FAMOTIDINE 20 MG TAB PO SCH ×2 (08:38→20:00)
[2016-10-30] MEDS ORDERED: PANTOPRAZOLE SODIUM 40 MG TAB PO SCH (09:00)
[2016-10-30] MEDS: MILRINONE/DEXTROSE 100 ML IV SCH (09:39)
[2016-10-30] MEDS ORDERED: PROTOCOL POTASSIUM 1 DOSE MISC PRN (10:21)
[2016-10-30] MEDS ORDERED: POTASSIUM Cl (KCl) 50 ML IV ONE (10:30)
--- NOTE | 2016-10-30 14:10 | PDINTPN ---
[facility] Progress Note Assessment/Plan: Assessment: Ischemic CM s/P CABG and AVR: Improved postoperatively, with tapering pressor needs. Respiratory Failure: Had respiratory acidosis postoperatively. Now resolved, doing well with NC O2. Hyperglycemia: BSs 120-150. Was on insulin gtt, now off Plan: Continue to follow BSs, resume insulin if they go higher but hopefully will improve now that he's weaning off pressors. Increase activity. Follow oxygen needs, which currently are improving. 10/30/16 14:15 Subjective: Feels weak. Denies pain. Thirsty. Objective: Vital Signs Temp Pulse Resp BP Pulse Ox 37.5 C 92 20 104/55 L 99 10/30/16 12:50 10/30/16 12:50 10/30/16 12:50 10/30/16 12:50 10/30/16 12:50 Laboratory Results 10/30/16 04:55 10/30/16 04:55 10/29/16 10/30/16 10/31/16 05:59 05:59 05:59 Intake Total 1610 2598 325 Output Total 1200 2705 560 Balance 410 -107 -235 PT 13.3 SEC (12.0-15.0) 10/26/16 03:59 INR 1.02 (0.83-1.16) 10/26/16 03:59 Physical Exam - Physical Exam General Appearance: alert, no apparent distress EENT: normal ENT inspection Neck: normal inspection Respiratory: lungs clear, normal breath sounds Cardiac/Chest: regular rate, rhythm, other (sternotomy OK.), No edema Abdomen: non-tender, soft, organomegaly Skin: normal color, warm/dry Extremities: normal inspection Neuro/Psych: alert, normal mood/affect, oriented x 3 ICD10 Worksheet Patient Problems: Problems Problem Status Diagnosed Acute blood loss anemia Acute CHF (congestive heart failure), NYHA class III Acute Chest pain Acute Ischemic cardiomyopathy Acute S/P CABG x 4 Acute 10/29/16 S/P aortic valve replacement with bioprosthetic valve Acute 10/29/16 Severe aortic insufficiency Acute CAD, multiple vessel Chronic
--- NOTE | 2016-10-30 15:27 | GCON ---
[f rep st] CONSULTATION PULMONARY/CRITICAL CARE CONSULTATION DATE OF CONSULTATION: 10/29/2016 REFERRING PHYSICIAN: Christopher Trejo DO REASON FOR REFERRAL: Evaluation and management of hypercapnic respiratory failure and hyperglycemia. HISTORY: The patient is a 70-year-old gentleman who is relatively healthy when he presented to the ardiologist with increased dyspnea. He had previously had an abnormal ECG and an evaluation was yady mmended but the patient refused. Because of his new worsening symptoms, he was admitted to the [facility] 10 days ago, and an echocardiogram was performed which demonstrated severe LV systolic dysfunctio n with an ejection fraction of 15% to 20% and regional wall motion abnormalities. It also demonstrat ed moderate to severe aortic regurgitation. A catheterization was performed which demonstrated an oc cluded LAD and right coronary artery with severe disease in the left main. The patient was seen in onsultation by Dr. Trejo. He was diuresed, then had a right heart catheterization that showed that h e was well compensated. He underwent a 4-vessel CABG including 2 internal mammary arteries as well a s an aortic valve replacement. A left ventriculotomy was also performed, and the left atrial appenda ge was clipped. The patient came to the intensive care unit intubated and on pressors. He is unresp onsive. PAST MEDICAL HISTORY: Hypertension, recently untreated. MEDICATIONS: Medications at the time of admission included herbal supplements and melatonin. In the hospital, he is being treated with carvedilol, atorvastatin, famotidine, and Zestril. ALLERGIES: Tetanus vaccine. SOCIAL HISTORY: The patient has a remote history of smoking. He works at [employer] in a [employer] physical job. FAMILY HISTORY: Negative for heart disease. REVIEW OF SYSTEMS: Unobtainable. PHYSICAL EXAMINATION: GENERAL: The patient is intubated and sedated. VITAL SIGNS: Blood pressure is 110/61 with a heart rate of 108. His temperature is 35.9. HEENT: Normocephalic and atraumatic. No icterus. NECK: No JVD. Trachea is midline. CHEST: Clear to auscultation. He has a midline s ternotomy scar. CARDIAC: Regular rate and rhythm without murmurs. Regular tachycardia without murm ur. ABDOMEN: Soft. Bowel sounds are present. EXTREMITIES: No clubbing, cyanosis, or edema. He h as good distal pulses. LABORATORY: Sodium level is 147, up from 137 two days earlier. Potassium is 3.6, chloride is 112. Blood glucose is 110 on an insulin drip. BNP is 3050 on October 26. CBC shows a hemoglobin of 8.3 , down from 15.2. White blood count is 9.8 and platelet count is 57, down from 211 preoperatively. An arterial blood gas shows a pH of 7.16 with a pO2 of 147, a CO2 of 55, and a bicarbonate of 20 on I MV at rate of 12 with a tidal volume of 500, 5 of PEEP, and 100% oxygen. A chest x-ray shows appropr iate positioning of interventional devices. There is some mild pulmonary edema. Images reviewed. ASSESSMENT: 1. Acute hypercapnic respiratory failure. This is likely due to under ventilation on mechanical lashon tilator. The patient's settings are fairly typical and appropriate so he may have some gas exchange abnormalities related to his congestive heart failure. In addition, he has some metabolic acidosis. This could be contributing to his acidemia. 2. Hyperglycemia. This is mild and well corrected with insulin drip. 3. Thrombocytopenia. 4. Anemia. RECOMMENDATIONS: The patient will be transfused packed red blood cells. His platelet count will be followed. The insulin drip will be closely monitored and decreased as tolerated, maintaining a blood sugar of less than 150. I will increase the patient's ventilator rate and a blood gas will be reche cked in an hour. I anticipate that this will continue to correct with increasing the ventilator and also as he wakes up and begins to take more spontaneous breaths. /[id number]/MODL
[2016-10-30] MEDS ORDERED: ALBUMIN 5% 250 ML IV PRN (16:17)
[2016-10-30] MEDS: traMADol 50 MG TAB PO PRN ×2 (16:20→20:00)
[2016-10-30] MEDS ORDERED: NOREPINEPHRINE BITARTRATE 16 MG in NS 250 ML IV ONE (19:30)
[2016-10-30] MEDS ORDERED: NOREPINEPHRINE BITARTRATE 16 MG in NS 250 ML IV SCH (19:30)
[2016-10-30] MEDS: ACETAMINOPHEN 325 MG TAB PO PRN (20:00)
[2016-10-30] MEDS: fentaNYL 100 MCG/2 ML INJ IVP PRN (22:51)
[2016-10-31] MEDS: HEPARIN 5,000 UNIT/0.5 ML SYR SC SCH ×2 (00:11→05:51)
[2016-10-31] MEDS: HYDROCODONE/APAP 5/325 TAB PO PRN (00:33)
[2016-10-31] MEDS: ONDANSETRON 4 MG/2 ML VIAL IVP PRN (00:35)
[2016-10-31] MEDS: METOCLOPRAMIDE 10 MG/2 ML VIAL IVP PRN (00:35)
[2016-10-31 05:20] LABS: % IMMATURE GRANULYOCYTES 0.6 % (0.0-1.1); ABSOLUTE IMMATURE GRANULOCYTES 0.07 10^3/uL (0.00-0.10); ADD DIFF? NO; ADD MORPH? NO; ADD SCAN? NO; ATYPICAL LYMPHOCYTE FLAG 0 (0-99); FRAGMENT RBC FLAG 0 (0-99); HEMATOCRIT 32.4 % (40.0-51.0); HEMOGLOBIN 11.2 g/dL (13.7-17.5); LEFT SHIFT FLG 20 (0-99); LIPEMIA HEMOLYSIS FLAG 90 (0-99); MEAN CELL HEMOGLOBIN 30.3 pg (27.9-34.1); MEAN CELL HEMOGLOBIN CONCENTR. 34.6 g/dL (32.4-36.7); MEAN CELL VOLUME 87.6 fL (81.5-99.8); MEAN PLATELET VOLUME 11.5 fL (8.7-11.7); PLATELET CLUMPS FLAG 0 (0-99); PLATELET COUNT 71 10^3/uL (150-400)
[2016-10-31 05:41] LABS: ANION GAP 10 mEq/L (8-16); CALCIUM 7.8 mg/dL (8.5-10.4); CARBON DIOXIDE 20 mEq/l (22-31); CHLORIDE 107 mEq/L (97-110); CREATININE 1.3 mg/dL (0.7-1.3); GLOMERULAR FILTRATION RATE 55; GLUCOSE 121 mg/dL (70-100); POTASSIUM 5.1 mEq/L (3.5-5.2); SODIUM 137 mEq/L (134-144)
[2016-10-31] MEDS: traMADol 50 MG TAB PO PRN ×3 (07:27→17:51)
[2016-10-31] MEDS: ACETAMINOPHEN 325 MG TAB PO PRN (07:27)
[2016-10-31] MEDS ORDERED: FUROSEMIDE 40 MG/4 ML VIAL IVP ONE ×3 (07:30→20:00)
--- NOTE | 2016-10-31 07:45 | SOAPPROG ---
SOAP Progress Note Assessment/Plan: Assessment: POD#2 CABGx4 (HATCH-LAD, RACHANA-D1, SVG-D2, SVG-AM), AVR #23 Magna bioprosthesis, left ventriculotomy, AtriClip LLAA Sx severe CAD - s/p CABG4 with bilateral mammaries. Secondary prevention w baby ASA, Coreg as allowed by BP, ACEI when eating well. Dilated ischemic cardiomyopathy with apical aneurysm - Aneurysmectomy deferred as apical muscle not thinned out or fibrotic. Severe AI - s/p tissue AVR. Antithrombotic prophylaxis with ASA if rhythm stable and EF > 20%. Class IV CHF, with systolic dysfunction, pre-op EF ~20% - Medically compensated preop s/p 6kg diuresis. LV systolic fx slightly improved post revascularization on low dose inotropic and pressor support. Off Milrinone and dopamine yesterday. Levo wean attempted this am but stopped d/t deterioration in CI and renal fx. Gastric distention - With hypoactive bowel sounds and mild nausea. Likely exacerbated by low CI. NPO for now. NGT prn. Acute blood loss anemia with thrombocytopenia and mild coagulopathy - Stable s/ p 4u PRBC. No evidence active bleeding. Care w VTE prophylaxis while plt count < 100. Plan: Cont Levo for MAP > 80. Resume dopa @ 5mcg/kg/min for CI > 1.9 Consider add dobutamine if CI remains < 1.8. Lasix 40 mg IV x 1 once hemodynamics at goal. NPO until improved bowel fx. Convert blakes to bulb suction. Wrap and cap TCPWs. Baseline postop echo later today or tomorrow. 10/31/16 07:35 Subjective: Feels ok. Tolerating OOB to chair. Adequate pain control. No appetite. A little bit nauseous. Rare flatus. Objective: Vital Signs Temp Pulse Resp BP Pulse Ox 37.3 C 89 17 114/71 98 10/31/16 06:00 10/31/16 07:00 10/31/16 07:00 10/31/16 07:00 10/31/16 07:00 Laboratory Results 10/31/16 05:10 10/31/16 05:10 10/30/16 10/31/16 11/01/16 05:59 05:59 05:59 Intake Total 2598 1782.2 Output Total 2705 1660 Balance -107 122.2 PT 13.3 SEC (12.0-15.0) 10/26/16 03:59 INR 1.02 (0.83-1.16) 10/26/16 03:59 Pressor support down to 2mcg levo w adequate HR and MAPs but decline in CI, SVO2 and UOP. Stable suppl O2 req. CXR-> interval improvement in aeration, min pulm vasc congestion, + gastric air. CTOP thin and quantity dissipating. Plt beginning to rebound, K, BUN and Cr sl elev. Physical Exam - Physical Exam General Appearance: alert, no apparent distress Respiratory: lungs clear (grossly), other (Blakes x 3 y-d to pleurovac, serosang drainage, +tidal, no air leak w vigorous cough) Cardiac/Chest: regular rate, rhythm, other (Sternum grossly stable. Sternotomy CDI. A&V wires intact) Abdomen: distended, other (hypoactive bowel sounds) Skin: warm/dry Extremities: other (2+ gen edema) ICD10 Worksheet Patient Problems: Problems Problem Status Diagnosed Acute blood loss anemia Acute CHF (congestive heart failure), NYHA class III Acute Chest pain Acute Ischemic cardiomyopathy Acute S/P CABG x 4 Acute 10/29/16 S/P aortic valve replacement with bioprosthetic valve Acute 10/29/16 Severe aortic insufficiency Acute CAD, multiple vessel Chronic
--- NOTE | 2016-10-31 08:54 | DX ---
Portable Chest, Single View 6:02 a.m. Indication: Recent open heart surgery Comparison: Portable chest one day prior. Findings: The bilateral chest tubes, right IJ central venous line, [place]-Devi catheter with the tip in the right main pulmonary artery, midline sternal wires, prosthetic aortic valve, and left atrial ashley endage clip are all unchanged. Interstitial edema and bilateral perihilar atelectasis have improved. Left basilar consolidation partially obscuring the left hemidiaphragm is unchanged. No pneumothorax. Heart size upper normal for portable technique. Impression: 1. Support devices in good position. 2. Improving atelectasis and interstitial edema. 3. No pneumothorax.
[2016-10-31] MEDS: CHLORHEXIDINE GLUCONATE 15 ML UDL PO SCH ×2 (10:01→20:36)
[2016-10-31] MEDS: fentaNYL 100 MCG/2 ML INJ IVP PRN ×5 (10:51→21:22)
[2016-10-31] MEDS: FAMOTIDINE 20 MG TAB PO SCH ×2 (11:03→23:38)
[2016-10-31] MEDS: SENNOSIDES/DOCUSATE SODIUM TAB PO SCH ×2 (11:04→20:35)
[2016-10-31] MEDS: ASPIRIN 325 MG TAB PO SCH (11:04)
[2016-10-31] MEDS: ATORVASTATIN CALCIUM 40 MG TAB PO SCH (11:04)
[2016-10-31] MEDS ORDERED: fentaNYL 25 MCG PATCH TD SCH (12:00)
--- NOTE | 2016-10-31 12:37 | PDINTPN ---
[facility] Progress Note Assessment/Plan: Assessment: Ischemic CM s/P CABG and AVR: CI and urine output fell overnight. Now improved with resuming NE and DA. Respiratory Failure: Had respiratory acidosis postoperatively. Now resolved, doing well with NC O2 at 2 liters/minute. Hyperglycemia: BSs 120-150. Was on insulin gtt, now off ANNALEE: Cr 1.3, urine out put low, but improving with pressors and improved CI. Plan: Continue to follow BSs, resume insulin if they go higher. Increase activity. Pain control. Resume diet if able to maintain perfusion/CI. Follow oxygen needs, which currently are minimal and improving. Keep in ICU. 10/31/16 12:37 Subjective: C/O sternal discomfort. No eating. Objective: Vital Signs Temp Pulse Resp BP Pulse Ox 36.4 C 123 H 20 121/77 H 93 10/31/16 11:00 10/31/16 12:00 10/31/16 12:03 10/31/16 12:03 10/31/16 12:03 Laboratory Results 10/31/16 05:10 10/31/16 05:10 10/30/16 10/31/16 11/01/16 05:59 05:59 05:59 Intake Total 2598 1782.2 Output Total 2705 1660 180 Balance -107 122.2 -180 PT 13.3 SEC (12.0-15.0) 10/26/16 03:59 INR 1.02 (0.83-1.16) 10/26/16 03:59 CXR: Improved interstitial edema. Images reviewed. Physical Exam - Physical Exam General Appearance: alert, no apparent distress EENT: normal ENT inspection Neck: normal inspection Respiratory: lungs clear, normal breath sounds Cardiac/Chest: regular rate, rhythm, edema (2+) Abdomen: normal bowel sounds, non-tender Skin: warm/dry, cyanosis Extremities: non-tender, normal inspection Neuro/Psych: alert, normal mood/affect, oriented x 3 ICD10 Worksheet Patient Problems: Problems Problem Status Diagnosed Acute blood loss anemia Acute CHF (congestive heart failure), NYHA class III Acute Chest pain Acute Ischemic cardiomyopathy Acute S/P CABG x 4 Acute 10/29/16 S/P aortic valve replacement with bioprosthetic valve Acute 10/29/16 Severe aortic insufficiency Acute CAD, multiple vessel Chronic
[2016-10-31] MEDS ORDERED: NOREPINEPHRINE BITARTRATE 16 MG in NS 250 ML IV SCH (14:47)
[2016-10-31 23:02] LABS: MIXED VENOUS O2 SATURATION 60 % (65-75)
[2016-10-31] MEDS ORDERED: FUROSEMIDE 40 MG/4 ML VIAL ONE (23:43)
[2016-11-01 00:51] LABS: POTASSIUM 4.3 mEq/L (3.5-5.2)
[2016-11-01] MEDS ORDERED: AMIODARONE HCL 150 MG/100 ML BAG (1.5 MG/ML) IV ONE (02:03)
[2016-11-01] MEDS ORDERED: AMIODARONE A.FIB-LOAD DOSE(ORDER 1/3) IV ONE (02:30)
[2016-11-01] MEDS ORDERED: AMIODARONE A.FIB-6HR INFSN (ORDER 2/3) IV ONE (02:30)
[2016-11-01] MEDS ORDERED: AMIODARONE HCL 100 ML IV ONE (03:30)
[2016-11-01] MEDS: HYDROCODONE/APAP 5/325 TAB PO PRN (03:43)
[2016-11-01 05:16] LABS: HEMATOCRIT 33.7 % (40.0-51.0); HEMOGLOBIN 11.7 g/dL (13.7-17.5); MEAN CELL HEMOGLOBIN 30.6 pg (27.9-34.1); MEAN CELL HEMOGLOBIN CONCENTR. 34.7 g/dL (32.4-36.7); MEAN CELL VOLUME 88.2 fL (81.5-99.8); RED BLOOD CELL COUNT 3.82 10^6/uL (4.40-6.38); RED CELL DISTRIBUTION WIDTH 13.4 % (11.5-15.2)
[2016-11-01 05:29] LABS: MIXED VENOUS O2 SATURATION 46 % (65-75)
[2016-11-01 05:35] LABS: ANION GAP 11 mEq/L (8-16); CALCIUM 8.2 mg/dL (8.5-10.4); CARBON DIOXIDE 18 mEq/l (22-31); CHLORIDE 107 mEq/L (97-110); GLOMERULAR FILTRATION RATE > 60; GLUCOSE 125 mg/dL (70-100); POTASSIUM 4.7 mEq/L (3.5-5.2); SODIUM 136 mEq/L (134-144)
[2016-11-01] MEDS: fentaNYL 100 MCG/2 ML INJ IVP PRN (07:30)
--- NOTE | 2016-11-01 08:05 | SOAPPROG ---
SOAP Progress Note Assessment/Plan: POD #3: CABGx4 (HATCH-LAD, RACHANA-D1, SVG-D2, SVG-Krupa RCA), AVR #23 Magna bioprosthesis, left ventriculotomy, AtriClip RANJEET Severe 3-vessel disease with ICM s/p CABGx4 - Wean dopamine for MAPs 65 - ASA for graft thromboprophylaxis, SQ heparin for DVT prophylaxis once platelets > 100 - D/C [place]/AL - CTs to remain on bulb suction pending CXR - OOB to chair Severe AI s/p AVR with #23 Magna bioprosthesis - Drips/lines/activity as per CABG mgmt Left ventricular aneurysm s/p ventriculotomy without resection - LV aneurysm non -transmural with normal muscle thickness without signs of infarction Acute blood loss anemia with coagulopathy and thrombocytopenia - CT output serosanguineous, H/H stable - HIT panel sent this AM as platelets trending lower Class IV CHF, with systolic dysfunction, pre-op EF 20% - Daily Lasix - RONNELL/BB when appropriate Post-operative rapid atrial fibrillation - Continue amiodarone gtt, bolus prn - Will need thromboprophylaxis one coagulopathy has resolved Narcotic induced ileus, clinically improved - Use opioids sparingly - NPO for now - possible advancement later today 11/01/16 08:07 Subjective: C/O incisional pain. Denies SOB. +flatus Objective: Vital Signs Temp Pulse Resp BP Pulse Ox 38.5 C H 115 H 14 95/50 L 96 11/01/16 07:00 11/01/16 07:00 11/01/16 07:00 11/01/16 07:00 11/01/16 07:00 Laboratory Results 11/01/16 04:55 11/01/16 04:55 10/31/16 11/01/16 11/02/16 05:59 05:59 05:59 Intake Total 1782.2 630.0 Output Total 1660 3275 Balance 122.2 -2645.0 PT 13.3 SEC (12.0-15.0) 10/26/16 03:59 INR 1.02 (0.83-1.16) 10/26/16 03:59 Physical Exam - Physical Exam General Appearance: alert, mild distress, thin EENT: No scleral icterus (R), No scleral icterus (L) Neck: normal inspection Respiratory: lungs clear, No crackles, No rhonchi, No wheezing Cardiac/Chest: irregularly irregular Abdomen: non-tender, soft, No distended Skin: normal color, warm/dry Extremities: pedal edema (+1 B/L LE), No swelling Neuro/Psych: no motor/sensory deficits, alert ICD10 Worksheet Patient Problems: Problems Problem Status Diagnosed Acute blood loss anemia Acute CHF (congestive heart failure), NYHA class III Acute Chest pain Acute Ischemic cardiomyopathy Acute S/P CABG x 4 Acute 10/29/16 S/P aortic valve replacement with bioprosthetic valve Acute 10/29/16 Severe aortic insufficiency Acute CAD, multiple vessel Chronic
[2016-11-01] MEDS ORDERED: AMIODARONE A.FIB-18HR INFSN (ORDER 3/3) IV ONE (08:30)
[2016-11-01] MEDS ORDERED: FUROSEMIDE 40 MG/4 ML VIAL IVP SCH (09:00)
--- NOTE | 2016-11-01 09:01 | DX ---
Portable chest x-ray 0 835 hours. History: Follow-up open heart surgery. Check lung status. Findings: Comparison to October 31, 2016. Left atrial clamp along with cardiac valve replacement are once again noted. Left-sided chest tube, S wan-Devi catheter, and right-sided mediastinal tube remain in place. There is no new consolidation or significant effusion. Bibasilar subsegmental atelectasis is suspecte d left side greater than right. There is no pneumothorax. Impression: 1. No significant change since prior study. Bibasilar subsegmental atelectasis suspected.
--- NOTE | 2016-11-01 09:35 | PDINTPN ---
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 Now on DA. CI 1.7. AF with RVR: HR 100 with amiodarone gtt. Respiratory Failure: Had respiratory acidosis postoperatively. Now resolved, doing well on low-flow oxygen Hyperglycemia: BSs 120s. Was on insulin gtt, now off ANNALEE: Cr up to 1.3, now back down to 1.0, urine output improved with pressors and improved CI. Ileus Due to anesthesia/narcotics. Improved, with flatus and quite BS. Anemia: H/H stable. Plan: D/C A-line, PA catheter, then increase activity. Minimize narcotics. Resume diet if able to maintain perfusion/CI. Follow oxygen needs, which currently are minimal. Continue amidarone. Keep in ICU. Follow H/H 11/01/16 09:36 11/01/16 09:38 11/01/16 09:38 Subjective: C/O 7/10 sternal pain. No nausea, poor appetite. Passed flatus. Feels weak/ sleepy. Objective: Vital Signs Temp Pulse Resp BP Pulse Ox 38.5 C H 136 H 10 L 105/62 96 11/01/16 09:00 11/01/16 09:00 11/01/16 09:00 11/01/16 09:00 11/01/16 09:00 Laboratory Results 11/01/16 04:55 11/01/16 04:55 10/31/16 11/01/16 11/02/16 05:59 05:59 05:59 Intake Total 1782.2 630.0 Output Total 1660 3275 Balance 122.2 -2645.0 PT 13.3 SEC (12.0-15.0) 10/26/16 03:59 INR 1.02 (0.83-1.16) 10/26/16 03:59 CXR: Unchanged. Images reviewed. Physical Exam - Physical Exam General Appearance: alert, no apparent distress EENT: normal ENT inspection Neck: normal inspection Respiratory: lungs clear, normal breath sounds Cardiac/Chest: regular rate, rhythm, edema Abdomen: non-tender, No normal bowel sounds (diminished but present) Skin: normal color, warm/dry Extremities: normal inspection Neuro/Psych: alert, normal mood/affect, oriented x 3 ICD10 Worksheet Patient Problems: Problems Problem Status Diagnosed Acute blood loss anemia Acute Atrial fibrillation with rapid ventricular response Acute CHF (congestive heart failure), NYHA class III Acute Chest pain Acute Ischemic cardiomyopathy Acute S/P CABG x 4 Acute 10/29/16 S/P aortic valve replacement with bioprosthetic valve Acute 10/29/16 Severe aortic insufficiency Acute CAD, multiple vessel Chronic
[2016-11-01] MEDS: FAMOTIDINE 20 MG TAB PO SCH ×2 (10:21→20:12)
[2016-11-01] MEDS: ATORVASTATIN CALCIUM 40 MG TAB PO SCH (10:21)
[2016-11-01] MEDS: SENNOSIDES/DOCUSATE SODIUM TAB PO SCH ×2 (10:21→20:12)
[2016-11-01] MEDS: CHLORHEXIDINE GLUCONATE 15 ML UDL PO SCH ×2 (10:22→21:13)
[2016-11-01] MEDS: ASPIRIN 325 MG TAB PO SCH (10:22)
[2016-11-01] MEDS ORDERED: ALBUMIN 5% 250 ML IV ONE ×2 (11:08→16:37)
[2016-11-01] MEDS: ALBUMIN 5% 250 ML IV PRN (11:12)
[2016-11-01 12:28] LABS: POTASSIUM 4.3 mEq/L (3.5-5.2)
[2016-11-01] MEDS: ONDANSETRON 4 MG/2 ML VIAL IVP PRN (14:04)
[2016-11-01] MEDS: METOCLOPRAMIDE 10 MG/2 ML VIAL IVP PRN (15:04)
[2016-11-01 16:44] LABS: ANION GAP 7 mEq/L (8-16); CALCIUM 7.9 mg/dL (8.5-10.4); CARBON DIOXIDE 25 mEq/l (22-31); CHLORIDE 104 mEq/L (97-110); CREATININE 1.1 mg/dL (0.7-1.3); GLOMERULAR FILTRATION RATE > 60; GLUCOSE 117 mg/dL (70-100); POTASSIUM 4.3 mEq/L (3.5-5.2); SODIUM 136 mEq/L (134-144)
[2016-11-01 19:35] LABS: POTASSIUM 4.3 mEq/L (3.5-5.2)
[2016-11-01] MEDS ORDERED: FUROSEMIDE 40 MG/4 ML VIAL IVP ONE (20:00)
[2016-11-02 00:51] LABS: POTASSIUM 4.2 mEq/L (3.5-5.2)
[2016-11-02] MEDS ORDERED: AMIODARONE HCL 200 ML IV SCH (02:30)
[2016-11-02] MEDS: METOCLOPRAMIDE 10 MG/2 ML VIAL IVP PRN (03:01)
[2016-11-02 05:50] LABS: ANION GAP 7 mEq/L (8-16); CALCIUM 7.9 mg/dL (8.5-10.4); CARBON DIOXIDE 25 mEq/l (22-31); CHLORIDE 104 mEq/L (97-110); CREATININE 1.2 mg/dL (0.7-1.3); GLOMERULAR FILTRATION RATE 60; GLUCOSE 111 mg/dL (70-100); POTASSIUM 4.3 mEq/L (3.5-5.2); SODIUM 136 mEq/L (134-144)
[2016-11-02] MEDS ORDERED: FUROSEMIDE 40 MG/4 ML VIAL IVP ONE (07:12)
--- NOTE | 2016-11-02 07:47 | SOAPPROG ---
SOAP Progress Note Assessment/Plan: Assessment: POD#4 CABGx4 (HATCH-LAD, RACHANA-D1, SVG-D2, SVG-AM), AVR #23 Magna bioprosthesis, left ventriculotomy, AtriClip LLAA Sx severe CAD - s/p CABG4 with bilateral mammaries. Tubes and wires out. Secondary prevention w baby ASA, Coreg as allowed by BP, statin when eating well. Dilated ischemic cardiomyopathy with apical aneurysm - Aneurysmectomy deferred as apical muscle not thinned out or fibrotic. Severe AI - s/p tissue AVR. Antithrombotic prophylaxis with Coumadin as per rhythm. Postop AF - Muslim of SR on amiodarone. [id number] score of 4. Antithrombotic prophylaxis with Coumadin. Target INR 2-3. Duration TBD. Conservative load as RANJEET ligated. Adjunctive baby ASA for CAD. Class IV CHF, with systolic dysfunction, pre-op EF ~20% - Medically compensated preop s/p 6kg diuresis. LV systolic fx slightly improved post revascularization on low dose inotropic and pressor support. Remains on low dose levo. Improved BP in sinus rhythm and wean attempt in progress. Postop ileus - Exacerbated by immobility, narcs and low CI. Resolved with supportive care. Acute blood loss anemia with thrombocytopenia and mild coagulopathy - Stable s/ p 4u PRBC. No evidence active bleeding. Platelet rebound noted. Aortoiliac disease - Saccular infrarenal AAA with ectatic iliacs. Eval for EVAR once recovered from cardiac surgery. Secondary prevention as per CAD. Plan: Wean levo to SBP > 90. Cont daily IV lasix 40mg. Advance diet. Transition IV Amio to oral. Inc activity and pulm toilet. Baseline postop echo. Start coumadin. 2.5 mg today. Anticipate tx to tele later today. 11/02/16 07:45 Subjective: More comfortable since tubes out. Still sleepy and weak. Tolerating liquid diet and recovering some appetite. Objective: Vital Signs Temp Pulse Resp BP Pulse Ox 36.9 C 69 22 H 110/78 100 11/02/16 04:00 11/02/16 06:00 11/02/16 06:00 11/02/16 06:00 11/02/16 06:00 Laboratory Results 11/02/16 05:15 11/02/16 05:15 0211/02/16 11/03/16 05:59 05:59 05:59 Intake Total 630.0 1523 Output Total 3275 1230 Balance -2645.0 293 PT 13.3 SEC (12.0-15.0) 10/26/16 03:59 INR 1.02 (0.83-1.16) 10/26/16 03:59 CTs x 3 removed yest afternoon. Holding SR since last night. Dopamine off since early this am. Levo down to 1 mcg. Improving fluid balance. Still +10kg overall. CXR-> Improved aeration, decreased basilar atelectasis. Minimal suppl O2 req. Stable renal fx, inc platelet counts. HIT Ab still pending. Physical Exam - Physical Exam General Appearance: no apparent distress, other (somnolent but arousable, answering appropriately when engaged.) Respiratory: lungs clear (grossly) Cardiac/Chest: regular rate, rhythm, other (Sternum grossly stable. Sternotomy and LLE venotomy CDI) Abdomen: normal bowel sounds, non-tender, soft Skin: warm/dry Extremities: swelling (2+ generalized) ICD10 Worksheet Patient Problems: Problems Problem Status Diagnosed Acute blood loss anemia Acute Atrial fibrillation with rapid ventricular response Acute CHF (congestive heart failure), NYHA class III Acute Chest pain Acute Ischemic cardiomyopathy Acute S/P CABG x 4 Acute 10/29/16 S/P aortic valve replacement with bioprosthetic valve Acute 10/29/16 Severe aortic insufficiency Acute CAD, multiple vessel Chronic
[2016-11-02] MEDS: PANTOPRAZOLE SODIUM 40 MG TAB PO SCH (08:18)
[2016-11-02] MEDS: AMIODARONE HCL 200 MG TAB PO SCH ×2 (08:18→21:46)
[2016-11-02] MEDS: SENNOSIDES/DOCUSATE SODIUM TAB PO SCH ×2 (08:18→21:46)
[2016-11-02] MEDS: ASPIRIN 325 MG TAB PO SCH (08:18)
[2016-11-02] MEDS: ATORVASTATIN CALCIUM 40 MG TAB PO SCH (08:19)
--- NOTE | 2016-11-02 08:43 | DX ---
Chest, One View Portable at 0607 hours History: Postop cardiac surgery for heart failure. Chest tubes. Comparison: November 01, 2016 Findings: Median sternotomy wires, mediastinal clips, mitral valve replacement, and atrial appendage clip noted. Mild enlargement of cardiac silhouette. Right internal jugular line superior vena cava. Left lower lobe atelectasis. No pneumothorax. Mild pulmonary venous hypertension. Impression: 1. Multiple tubes and lines without pneumothorax. 2. Left lower lobe atelectasis.
--- NOTE | 2016-11-02 11:00 | PDINTPN ---
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 On low-dose NE AF with RVR: Now NSR Respiratory Failure: Now resolved, doing well on low-flow oxygen Hyperglycemia: BSs low 100s. Was on insulin gtt, now off ANNALEE: Cr 1.2. Urine output fairly low but steady. Ileus: Due to anesthesia/narcotics. Improved, with flatus and quite BS. Anemia: H/H up a bit. Fever: Oct 2. Resolved. Blood Cxs negative to date. Suspect atelectasis. No antibiotics. Plan: Increase activity. Minimize narcotics. Advance diet. Follow oxygen needs, which currently are minimal. Continue amiodarone PO. May be able to transfer out of ICU. Follow H/H 11/02/16 11:15 Subjective: CP improved, indurance improved, although he's still quite weak. Still with poor appetite Objective: Vital Signs Temp Pulse Resp BP Pulse Ox 36.1 C 73 17 111/74 100 11/02/16 08:00 11/02/16 09:50 11/02/16 09:50 11/02/16 09:50 11/02/16 09:50 Laboratory Results 11/02/16 05:15 11/02/16 05:15 11/01/16 11/02/16 11/03/16 05:59 05:59 05:59 Intake Total 630.0 1523 302 Output Total 3275 1230 200 Balance -2645.0 293 102 PT 13.3 SEC (12.0-15.0) 10/26/16 03:59 INR 1.02 (0.83-1.16) 10/26/16 03:59 Physical Exam - Physical Exam General Appearance: alert, no apparent distress EENT: normal ENT inspection Neck: normal inspection Respiratory: lungs clear, normal breath sounds Cardiac/Chest: regular rate, rhythm, edema (trace) Abdomen: normal bowel sounds, non-tender, soft Skin: normal color, warm/dry Extremities: normal inspection Neuro/Psych: alert, normal mood/affect, No motor weakness ICD10 Worksheet Patient Problems: Problems Problem Status Diagnosed Acute blood loss anemia Acute Atrial fibrillation with rapid ventricular response Acute CHF (congestive heart failure), NYHA class III Acute Chest pain Acute Ischemic cardiomyopathy Acute S/P CABG x 4 Acute 10/29/16 S/P aortic valve replacement with bioprosthetic valve Acute 10/29/16 Severe aortic insufficiency Acute CAD, multiple vessel Chronic
--- NOTE | 2016-11-02 13:39 | ECHO ---
[id number] + + [address] : : [place] [address] : : [phone] + + Adult Echocardiographic Report + + :Name: Barbara COREA Date: 11/02/2016 10:30 AM : : Admission Number: [id number] Location: 252: :: 1945Gender: Male Height: 66 in : :Age: 70 yrs Race: PTD Weight: 154 lb : :Reason For Study: Eval LV Fx : : BSA: 1.8 meters2 : :History: Post Op, AVR, CABG : + + MMode/2D Measurements & Calculations IVSd: 0.85 cm LVIDd: 5.6 cm FS: 6.4 % Ao root diam: LVPWd: 0.93 cm LVIDs: 5.3 cm EDV(Teich): 3.2 cm 155.0 ml ACS: 1.8 cm ESV(Teich): 133.2 ml EF(Teich): 14.1 % LVOT diam: 2.3 cmLVLd ap4: 7.9 cm SV(MOD-sp4): LVOT area: EDV(MOD-sp4): 19.0 ml 4.2 cm2 145.0 ml LVLs ap4: 7.8 cm ESV(MOD-sp4): 126.0 ml EF(MOD-sp4): 13.1 % Normal Measurement Values: + + :LVIDd (3.5-5.7cm) IVSd (0.6-1.1cm) LVPWd (0.6-1.1cm) Aortic Root (2.0-3.7cm)Left Atrium (1.5-4.0cm): :LV Vol(d) (76-115ml) LV Vol(s) (29-48ml) Ejec Fraction (50-65%)PV Bj (0.6- 1.2m/s) TV Bj (0.4-1.0m/s) : :MV E Bj (0.8-1.0m/s)MV A Bj (0.3-1.0m/s)LVOT Bj (0.7-1.2m/s) Asc Ao Bj ( 0.9-1.8m/s) : + + Doppler Measurements & Calculations MV E max bj: MV V2 mean: Ao mean PG: LV V1 max: 95.8 cm/sec 306.3 cm/sec 5.8 mmHg 64.7 cm/sec MV A max bj: MV mean PG: Ao V2 mean: LV V1 max P.7 cm/sec 44.3 mmHg 112.5 cm/sec 1.7 mmHg MV E/A: 1.6 MV V2 VTI: 143.4 cm Ao V2 VTI: 25.0 cm LV V1 mean PG: MVA(VTI): 0.33 cm2 VAHE(I,D): 1.9 cm2 1.0 mmHg LV V1 mean: 46.8 cm/sec LV V1 VTI: 11.4 cm SV(LVOT): 47.3 ml PA V2 max: TR max bj: 77.4 cm/sec 234.8 cm/sec PA max P.4 mmHg TR max P.1 mmHg RAP systole: 5.0 mmHg RVSP(TR): 27.1 mmHg Left Ventricle The left ventricle is mildly dilated. There is normal left ventricular wall thickness. Left ventricular systolic function is severely reduced. Ejection Fraction = 10-15%. The left ventricular ejection fraction is calculated at 14.1 %. There is severe global hypokinesis of the left ventricle. Right Ventricle The right ventricle is normal size. Atria The left atrial size is normal. Right atrial size is normal. Mitral Valve The mitral valve leaflets appear thickened, but open well. There is no mitral valve stenosis. There is moderate mitral regurgitation. The mitral regurgitant jet is eccentrically directed. Tricuspid Valve Normal tricuspid valve. There is mild tricuspid regurgitation. Aortic Valve There is a # 23 magna bioprosthetic aortic valve. The gradient is normal for this prosthetic aortic valve. Pulmonic Valve The pulmonic valve is not well visualized. There is no pulmonic valvular regurgitation. Great Vessels The aortic root is normal size. Pericardium/Pleural There is no pericardial effusion. Conclusion A complete two-dimensional transthoracic echocardiogram was performed (2D, M-mode, Doppler and color flow Doppler). (1) Left ventricular systolic ejection fraction was severely reduced (10- 15%) - severe global hypokinesis (2) No left ventriuclar hypertrophy (3) Diastolic function was not assessed (4) Normal right ventricular size, but severe reduction in RV function (5) Grossly normal atrial dimensions (6) Moderate mitral regurgitation (7) Bioprosthetic aortic valve without appreciable insufficiency (8) Mild tricuspid regurgitation (9) Poor visualization of the pulmonic valve (10) In comparison to prior echocardiogram from 10-25-16, there has been improvement in aortic valve pathology Final Reading Physician: Abe Murphy signed on 11/02/2016 01:38 PM Ordering Physician: Dalia Babin Performed By: Alex Reyes RDCS
[2016-11-02] MEDS ORDERED: WARFARIN SODIUM 2.5 MG TAB PO ONE (16:00)
[2016-11-02 18:24] LABS: POTASSIUM 3.5 mEq/L (3.5-5.2)
[2016-11-02 18:59] LABS: HEPARIN INDUCED ANTIBODY Negative (Negative); REACTIVITY 9 % (<20)
[2016-11-02] MEDS: POTASSIUM Cl (KCl) 50 ML IV SCH ×3 (19:31→21:41)
[2016-11-03 06:21] LABS: HEMATOCRIT 31.7 % (40.0-51.0); HEMOGLOBIN 10.8 g/dL (13.7-17.5); MEAN CELL HEMOGLOBIN 29.9 pg (27.9-34.1); MEAN CELL HEMOGLOBIN CONCENTR. 34.1 g/dL (32.4-36.7); MEAN CELL VOLUME 87.8 fL (81.5-99.8); RED BLOOD CELL COUNT 3.61 10^6/uL (4.40-6.38); RED CELL DISTRIBUTION WIDTH 13.4 % (11.5-15.2)
[2016-11-03 06:40] LABS: INR 1.65 (0.83-1.16); PROTIME(PATIENT) 19.6 SEC (12.0-15.0)
[2016-11-03 06:45] LABS: ALANINE AMINOTRANSFERASE 134 IU/L (21-72); ALBUMIN 2.3 g/dL (3.5-5.0); ALKALINE PHOSPHATASE 60 IU/L (38-126); ANION GAP 10 mEq/L (8-16); ASPARTATE AMINOTRANSFERASE 73 IU/L (17-59); BILIRUBIN,TOTAL 1.8 mg/dL (0.1-1.4); CALCIUM 8.1 mg/dL (8.5-10.4); CARBON DIOXIDE 24 mEq/l (22-31); CHLORIDE 106 mEq/L (97-110); CREATININE 0.9 mg/dL (0.7-1.3); GLOMERULAR FILTRATION RATE > 60; GLUCOSE 80 mg/dL (70-100); SODIUM 140 mEq/L (134-144); TOTAL PROTEIN 4.7 g/dL (6.3-8.2)
--- NOTE | 2016-11-03 07:52 | DX ---
Portable Chest 616 a.m. History: Postop cardiac surgery for heart failure Comparison: Yesterday Findings: There is early improvement in left lower lobe atelectasis, where there are increasing air b ronchograms. Increasing costophrenic gutter blunting is consistent with pleural effusion progression. Cardiomegaly and pulmonary vascular plethora remain. A right external jugular venous catheter remain s in place in good position. There is no pneumothorax. 3 median sternotomy wires, and atrial appendag e clip, a valve replacement and an atrial appendage clip remain in place. Impression:1. Improving left basilar atelectasis. 2. Increasing pleural effusions.
--- NOTE | 2016-11-03 08:26 | SOAPPROG ---
[facility] Progress Note Assessment/Plan: POD #5: CABGx4 (HATCH-LAD, RACHANA-D1, SVG-D2, SVG-Krupa RCA), AVR #23 Magna bioprosthesis, left ventriculotomy, AtriClip RANJEET Severe 3-vessel disease with ICM s/p CABGx4 - ASA for graft thromboprophylaxis - BB in future if RONNELL is tolerated Severe AI s/p AVR with #23 Magna bioprosthesis - Stable - good function as per post-op ECHO Left ventricular aneurysm s/p ventriculotomy without need for resection resection - LV aneurysm non-transmural with normal muscle thickness without signs of infarction Acute blood loss anemia with coagulopathy and thrombocytopenia, resolved Class IV CHF, with systolic dysfunction, pre-op EF 20% - Daily Lasix - RONNELL introduction today/possible future BB Post-operative rapid atrial fibrillation with conversion to SR - Continue amiodarone - Coumadin for INR goal 2-3 Narcotic induced ileus, resolved Saccular infrarenal AAA with ectatic iliacs - Eval for EVAR once recovered from cardiac surgery. 11/03/16 09:51 Subjective: Feels well. Denies CP/SOB. Good appetite. +BM overnight. Objective: Vital Signs Temp Pulse Resp BP Pulse Ox 36.4 C 75 20 114/84 H 96 11/02/16 20:00 11/03/16 06:00 11/03/16 06:00 11/03/16 06:00 11/03/16 06:00 Laboratory Results 11/03/16 06:10 11/03/16 06:10 11/02/16 11/03/16 11/04/16 05:59 05:59 05:59 Intake Total 1523 1260 Output Total 1230 740 Balance 293 520 PT 19.6 SEC (12.0-15.0) H 11/03/16 06:10 INR 1.65 (0.83-1.16) H 11/03/16 06:10 Physical Exam - Physical Exam General Appearance: WD/WN, alert, no apparent distress EENT: No scleral icterus (R), No scleral icterus (L) Neck: normal inspection Respiratory: chest non-tender, lungs clear, normal breath sounds Cardiac/Chest: regular rate, rhythm Abdomen: non-tender, soft, No distended Skin: normal color, warm/dry Extremities: pedal edema (+2 B/L LE) Neuro/Psych: no motor/sensory deficits, alert, normal mood/affect, oriented x 3 ICD10 Worksheet Patient Problems: Problems Problem Status Diagnosed Acute blood loss anemia Acute Atrial fibrillation with rapid ventricular response Acute CHF (congestive heart failure), NYHA class III Acute Chest pain Acute Ischemic cardiomyopathy Acute S/P CABG x 4 Acute 10/29/16 S/P aortic valve replacement with bioprosthetic valve Acute 10/29/16 Severe aortic insufficiency Acute CAD, multiple vessel Chronic
[2016-11-03] MEDS: AMIODARONE HCL 200 MG TAB PO SCH ×2 (09:32→21:10)
[2016-11-03] MEDS: PANTOPRAZOLE SODIUM 40 MG TAB PO SCH (09:32)
[2016-11-03] MEDS: ATORVASTATIN CALCIUM 40 MG TAB PO SCH (09:32)
[2016-11-03] MEDS: ASPIRIN 325 MG TAB PO SCH (09:32)
[2016-11-03] MEDS: SENNOSIDES/DOCUSATE SODIUM TAB PO SCH ×2 (09:32→21:09)
[2016-11-03] MEDS: LISINOPRIL 2.5 MG TAB PO SCH (09:33)
[2016-11-03] MEDS: POTASSIUM CL 20 MEQ TAB PO SCH ×2 (09:34→21:09)
[2016-11-03] MEDS: FUROSEMIDE 40 MG TAB PO SCH ×2 (09:34→16:31)
[2016-11-03] MEDS ORDERED: CEPACOL LOZENGE PO PRN (09:53)
--- NOTE | 2016-11-03 09:57 | PDINTPN ---
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 On low-dose NE AF with RVR: Now NSR Respiratory Failure: Now resolved, doing well on low-flow oxygen Hyperglycemia: BSs 80-low 100s. Was on insulin gtt, now off ANNALEE: Cr 0.9. Urine output fairly low but steady. Ileus: Due to anesthesia/narcotics. Improved, with flatus and quite BS. Anemia: H/H down marginally. No signs of active bleeding. Fever: Oct 2. Resolved. Blood Cxs negative to date. Suspect atelectasis. No antibiotics. Plan: Increase activity. Minimize narcotics. Advance diet. Follow oxygen needs, which currently are minimal. Continue amiodarone PO. May be able to transfer out of ICU. Follow H/H, Cr 11/03/16 10:01 Subjective: Pain improved, strength better, has already walked several times today. Still has poor appetite. Objective: Vital Signs Temp Pulse Resp BP Pulse Ox 37.2 C 88 17 110/74 95 11/03/16 08:00 11/03/16 09:00 11/03/16 09:00 11/03/16 09:00 11/03/16 09:00 Laboratory Results 11/03/16 06:10 11/03/16 06:10 11/02/16 11/03/16 11/04/16 05:59 05:59 05:59 Intake Total 1523 1260 Output Total 1230 740 Balance 293 520 PT 19.6 SEC (12.0-15.0) H 11/03/16 06:10 INR 1.65 (0.83-1.16) H 11/03/16 06:10 CXR: Increased small right effusion. Images reviewed. Physical Exam - Physical Exam General Appearance: alert, no apparent distress EENT: normal ENT inspection Neck: normal inspection Respiratory: chest non-tender, lungs clear Cardiac/Chest: regular rate, rhythm, edema (1+) Abdomen: normal bowel sounds, non-tender Skin: normal color, warm/dry Extremities: non-tender, normal inspection Neuro/Psych: alert, normal mood/affect, oriented x 3 ICD10 Worksheet Patient Problems: Problems Problem Status Diagnosed Acute blood loss anemia Acute Atrial fibrillation with rapid ventricular response Acute CHF (congestive heart failure), NYHA class III Acute Chest pain Acute Ischemic cardiomyopathy Acute S/P CABG x 4 Acute 10/29/16 S/P aortic valve replacement with bioprosthetic valve Acute 10/29/16 Severe aortic insufficiency Acute CAD, multiple vessel Chronic
[2016-11-03] MEDS ORDERED: WARFARIN SODIUM 2.5 MG TAB PO ONE (16:00)
[2016-11-03 19:01] LABS: POTASSIUM 3.7 mEq/L (3.5-5.2)
[2016-11-03] MEDS: ACETAMINOPHEN 325 MG TAB PO PRN (21:09)
[2016-11-04 06:50] LABS: ANION GAP 7 mEq/L (8-16); CALCIUM 7.8 mg/dL (8.5-10.4); CARBON DIOXIDE 26 mEq/l (22-31); CHLORIDE 106 mEq/L (97-110); CREATININE 0.9 mg/dL (0.7-1.3); GLOMERULAR FILTRATION RATE > 60; GLUCOSE 65 mg/dL (70-100); POTASSIUM 3.8 mEq/L (3.5-5.2); SODIUM 139 mEq/L (134-144)
[2016-11-04 07:30] LABS: APTT 43.4 SEC (23.0-38.0); INR 3.15 (0.83-1.16); PROTIME(PATIENT) 32.8 SEC (12.0-15.0)
[2016-11-04] MEDS ORDERED: POTASSIUM CL 20 MEQ TAB PO ONE (08:10)
--- NOTE | 2016-11-04 08:45 | DX ---
Portable AP Upright Chest November 04, 2016 at 6:21 a.m. Clinical History: 70-year-old male for follow-up of open heart surgery. Comparison Study: Chest dated November 03, 2016, at 6:16 a.m. Findings: Postoperative changes following recent sternotomy, cardiac valve replacement, placement of a left atrial appendix ligature, and CABG are again noted. Telemetry monitoring lead lines and oxygen tubing are present. A right IJ central venous catheter terminates over the distal SVC. The cardiac s ilhouette remains enlarged. There are bibasilar areas of pleuroparenchymal consolidation, consistent with subsegmental atelectasis, mild infiltrate, and/or pleural effusions. Impression: Radiographically similar to yesterday's study.
--- NOTE | 2016-11-04 08:54 | SOAPPROG ---
[facility] Progress Note Assessment/Plan: POD #6: CABGx4 (HATCH-LAD, RACHANA-D1, SVG-D2, SVG-Krupa RCA), AVR #23 Magna bioprosthesis, left ventriculotomy, AtriClip RANJEET Severe 3-vessel disease with ICM s/p CABGx4 - ASA for graft thromboprophylaxis - BB in future if RONNELL is tolerated Severe AI s/p AVR with #23 Magna bioprosthesis - Stable - good function as per post-op ECHO Left ventricular aneurysm s/p ventriculotomy without need for resection resection - LV aneurysm non-transmural with normal muscle thickness without signs of infarction Acute blood loss anemia with coagulopathy and thrombocytopenia, resolved Class IV CHF, with systolic dysfunction, pre-op EF 20% - Daily Lasix - ACEi/possible future BB Post-operative rapid atrial fibrillation with conversion to SR - Continue amiodarone - Coumadin for INR goal 2-3 Narcotic induced ileus, resolved Saccular infrarenal AAA with ectatic iliacs - Eval for EVAR once recovered from cardiac surgery. Subjective: Feels well. Gaining more strength. Plan is to go home when discharged. Objective: Vital Signs Temp Pulse Resp BP Pulse Ox 36.4 C 85 17 116/77 92 11/04/16 07:22 11/04/16 07:22 11/04/16 07:22 11/04/16 07:22 11/04/16 07:22 Laboratory Results 11/03/16 06:10 11/04/16 05:45 11/03/16 11/04/16 11/05/16 05:59 05:59 05:59 Intake Total 1260 400 Output Total 740 800 Balance 520 -400 PT 32.8 SEC (12.0-15.0) H D 11/04/16 06:28 INR 3.15 (0.83-1.16) H 11/04/16 06:28 Physical Exam - Physical Exam General Appearance: WD/WN, alert, no apparent distress EENT: No scleral icterus (R), No scleral icterus (L) Neck: normal inspection Respiratory: lungs clear, normal breath sounds, No respiratory distress Cardiac/Chest: regular rate, rhythm Abdomen: non-tender, soft, No distended Skin: normal color, warm/dry Extremities: pedal edema (+1 b/l LE), No swelling Neuro/Psych: no motor/sensory deficits, alert, normal mood/affect, oriented x 3 ICD10 Worksheet Patient Problems: Problems Problem Status Diagnosed Acute blood loss anemia Acute Atrial fibrillation with rapid ventricular response Acute CHF (congestive heart failure), NYHA class III Acute Chest pain Acute Ischemic cardiomyopathy Acute S/P CABG x 4 Acute 10/29/16 S/P aortic valve replacement with bioprosthetic valve Acute 10/29/16 Severe aortic insufficiency Acute CAD, multiple vessel Chronic
[2016-11-04] MEDS: PANTOPRAZOLE SODIUM 40 MG TAB PO SCH (10:05)
[2016-11-04] MEDS: ASPIRIN 325 MG TAB PO SCH (10:05)
[2016-11-04] MEDS: ATORVASTATIN CALCIUM 40 MG TAB PO SCH (10:05)
[2016-11-04] MEDS: FUROSEMIDE 40 MG TAB PO SCH ×2 (10:06→17:33)
[2016-11-04] MEDS: POTASSIUM CL 20 MEQ TAB PO SCH ×2 (10:06→20:52)
[2016-11-04] MEDS: SENNOSIDES/DOCUSATE SODIUM TAB PO SCH ×2 (10:06→20:52)
[2016-11-04] MEDS: AMIODARONE HCL 200 MG TAB PO SCH ×2 (10:06→20:52)
[2016-11-04] MEDS: LISINOPRIL 2.5 MG TAB PO SCH (10:07)
[2016-11-04] MEDS ORDERED: LISINOPRIL 2.5 MG TAB PO ONE (10:11)
[2016-11-04] MEDS: ACETAMINOPHEN 325 MG TAB PO PRN (20:51)
[2016-11-04] MEDS: MELATONIN 3 MG TAB PO PRN (20:52)
[2016-11-05] MEDS ORDERED: METOLAZONE 5 MG TAB PO ONE (07:55)
[2016-11-05 07:57] LABS: INR 2.9 (0.83-1.16); PROTIME(PATIENT) 30.7 SEC (12.0-15.0)
--- NOTE | 2016-11-05 07:59 | SOAPPROG ---
SOAP Progress Note Assessment/Plan: POD #7: CABGx4 (HATCH-LAD, RACHANA-D1, SVG-D2, SVG-Krupa RCA), AVR #23 Magna bioprosthesis, left ventriculotomy, AtriClip RANJEET Severe 3-vessel disease with ICM s/p CABGx4 - ASA for graft thromboprophylaxis - BB in future if BP improves Severe AI s/p AVR with #23 Magna bioprosthesis - Stable - good function as per post-op ECHO Left ventricular aneurysm s/p ventriculotomy without need for resection - LV aneurysm found to be non-transmural with normal muscle thickness without signs of infarction Acute blood loss anemia with coagulopathy and thrombocytopenia, resolved Class IV CHF, with systolic dysfunction, pre-op EF 15%, post-op 15% - Daily Lasix/ACEi - Possible future BB if BP improves - B/L pleural effusions R>L - will d/w pulm thoracentesis today - Severe systolic dysfunction - Will d/w with EP ?AICD placement prior to d/c Post-operative rapid atrial fibrillation with conversion to SR - Continue amiodarone - Coumadin for INR goal 2-3 Narcotic induced ileus, resolved Saccular infrarenal AAA with ectatic iliacs - Eval for EVAR once recovered from cardiac surgery Disposition - Plan for - SNF vs. home Subjective: Feels well. Denies SOB/dyspnea. Objective: Vital Signs Temp Pulse Resp BP Pulse Ox 36.5 C 74 18 123/79 H 94 11/05/16 04:00 11/05/16 04:00 11/05/16 04:00 11/05/16 04:00 11/05/16 04:00 Laboratory Results 11/03/16 06:10 11/04/16 11/05/16 11/06/16 05:59 05:59 05:59 Intake Total 400 1150 Output Total 800 1270 Balance -400 -120 PT 30.7 SEC (12.0-15.0) H 11/05/16 07:00 INR 2.90 (0.83-1.16) H 11/05/16 07:00 Physical Exam - Physical Exam General Appearance: WD/WN, alert, no apparent distress, thin EENT: No scleral icterus (R), No scleral icterus (L) Neck: normal inspection Respiratory: respiratory distress (mild), splinting, No accessory muscle use, No retractions Cardiac/Chest: regular rate, rhythm Abdomen: non-tender, soft, No distended Skin: warm/dry, jaundice (? - will obtain LFTs) Extremities: pedal edema (+1 b/l LE), No swelling Neuro/Psych: no motor/sensory deficits, alert, normal mood/affect, oriented x 3 ICD10 Worksheet Patient Problems: Problems Problem Status Diagnosed Acute blood loss anemia Acute Atrial fibrillation with rapid ventricular response Acute CHF (congestive heart failure), NYHA class III Acute Chest pain Acute Ischemic cardiomyopathy Acute S/P CABG x 4 Acute 10/29/16 S/P aortic valve replacement with bioprosthetic valve Acute 10/29/16 Severe aortic insufficiency Acute CAD, multiple vessel Chronic
[2016-11-05 08:13] LABS: POTASSIUM 3.8 mEq/L (3.5-5.2)
[2016-11-05] MEDS ORDERED: POTASSIUM CL 20 MEQ TAB PO ONE ×2 (08:24→18:13)
[2016-11-05] MEDS: ASPIRIN 325 MG TAB PO SCH (08:32)
[2016-11-05] MEDS: SENNOSIDES/DOCUSATE SODIUM TAB PO SCH (08:33)
[2016-11-05] MEDS: LISINOPRIL 5 MG TAB PO SCH (08:34)
[2016-11-05] MEDS: PANTOPRAZOLE SODIUM 40 MG TAB PO SCH (08:34)
[2016-11-05] MEDS: AMIODARONE HCL 200 MG TAB PO SCH ×2 (08:34→19:48)
[2016-11-05] MEDS: FUROSEMIDE 40 MG TAB PO SCH ×2 (08:34→16:20)
[2016-11-05] MEDS: ATORVASTATIN CALCIUM 40 MG TAB PO SCH (08:35)
--- NOTE | 2016-11-05 08:40 | DX ---
Portable Chest November 05, 2016 0614 hours History: Recent open heart surgery. Heart failure. Comparison: Portable chest November 04, 2016. Findings: There are increased small to moderate bilateral pleural effusions with increased bibasilar consolidation. There is no pneumothorax. Right internal jugular central venous catheter tip is at the cavoatrial junction. Cardiomediastinal silhouette is stable, with artificial valve again noted. Ther e is mild central pulmonary vascular congestion. The bones are stable. Impression: Probable CHF with increasing bibasilar consolidation most likely representing atelectasis and effusions.
--- NOTE | 2016-11-05 11:04 | PDCARCONS ---
Cardiology Consult Reason for Consult: Ischemic cardiomyopathy Chief Complaint: Status post CABG, aortic valve replacement Requesting Physician: Dr. Christopher Trejo History of Present Illness: 70-year-old male, status post CABG and aortic valve replacement 1 week ago, left ventricular ejection fraction remains at 10-15%. Dr. Trejo asked me to comment on appropriateness of ICD implantation. [facility] Patient is resting comfortably without any acute complaints. History Information - Allergies/Home Medication List Allergies/Adverse Reactions: Tetanus Vaccines and Toxoid Allergy (Unknown, Verified 10/29/16 05:43) Home Medications: Herbals/Supplements -Info Only 1 ea PO AD 10/20/16 [Last Taken Unknown] Melatonin [Melatonin 3 MG (*)] 3 mg PO HS PRN 10/20/16 [Last Taken 10/19/16] - Surgical History Reports: coronary bypass surgery - Social History Smoking Status: Never smoked Alcohol Use: None Drug Use: None Physical Exam Temp Pulse Resp BP Pulse Ox 36.6 C 94 25 H 108/73 94 11/05/16 08:15 11/05/16 08:15 11/05/16 08:15 11/05/16 08:15 11/05/16 08:15 O2 (L/minute) 2 FIO2 (%) 4 Constitutional: no apparent distress Eyes: PERRL, EOMI (A) Ears, Nose, Mouth, Throat: hearing normal Cardiovascular: systolic murmur Respiratory: no respiratory distress Lab and Imaging 11/03/16 06:10 11/05/16 07:00 WBC 10.31 10^3/uL (3.80-9.50) H 11/03/16 06:10 RBC 3.61 10^6/uL (4.40-6.38) L 11/03/16 06:10 Hgb 10.8 g/dL (13.7-17.5) L 11/03/16 06:10 POC Hgb 10.9 gm/dL (14.5-17.3) L 10/31/16 15:35 Hct 31.7 % (40.0-51.0) L 11/03/16 06:10 POC Hct 32 % (42.8-50.6) L 10/31/16 15:35 MCV 87.8 fL (81.5-99.8) 11/03/16 06:10 MCH 29.9 pg (27.9-34.1) 11/03/16 06:10 MCHC 34.1 g/dL (32.4-36.7) 11/03/16 06:10 RDW 13.4 % (11.5-15.2) 11/03/16 06:10 Plt Count 140 10^3/uL (150-400) L 11/03/16 06:10 MPV 11.5 fL (8.7-11.7) 10/31/16 05:10 Neut % (Auto) 69.4 % (39.3-74.2) 10/31/16 05:10 Lymph % (Auto) 13.0 % (15.0-45.0) L 10/31/16 05:10 [place] % (Auto) 16.8 % (4.5-13.0) H 10/31/16 05:10 Eos % (Auto) 0.0 % (0.6-7.6) L 10/31/16 05:10 Baso % (Auto) 0.2 % (0.3-1.7) L 10/31/16 05:10 Nucleat RBC Rel Count 0.0 % (0.0-0.2) 10/31/16 05:10 Absolute Neuts (auto) 8.66 10^3/uL (1.70-6.50) H 10/31/16 05:10 Absolute Lymphs (auto) 1.62 10^3/uL (1.00-3.00) 10/31/16 05:10 Absolute Monos (auto) 2.10 10^3/uL (0.30-0.80) H 10/31/16 05:10 Absolute Eos (auto) 0.00 10^3/uL (0.03-0.40) L 10/31/16 05:10 Absolute Basos (auto) 0.02 10^3/uL (0.02-0.10) 10/31/16 05:10 Absolute Nucleated RBC 0.00 10^3/uL (0-0.01) 10/31/16 05:10 Immature Gran % 0.6 % (0.0-1.1) 10/31/16 05:10 Immature Gran # 0.07 10^3/uL (0.00-0.10) 10/31/16 05:10 PT 30.7 SEC (12.0-15.0) H 11/05/16 07:00 INR 2.90 (0.83-1.16) H 11/05/16 07:00 APTT 43.4 SEC (23.0-38.0) H 11/04/16 06:28 D-Dimer 1.05 ug/mLFEU (0.00-0.50) H 10/20/16 19:15 Heparin Anti-Xa, Unfract 0.62 IU/mL (0.32-0.67) 10/28/16 03:56 Puncture Site ARTERIAL LINE 10/29/16 22:55 Patient Temperature 37.9 DEGREES 10/29/16 22:55 pCO2 38 mmHg (34-38) 10/29/16 22:55 pO2 142 mmHg (65-75) H 10/29/16 22:55 Total CO2 22 mEq/L (23-27) L 10/29/16 22:55 ABG pH 7.36 (7.35-7.45) 10/29/16 22:55 ABG PO2/FiO2 Ratio 355 RATIO 10/29/16 22:55 ABG O2 Saturation 99 % (92-95) H 10/29/16 22:55 ABG Base Excess -3.5 mEq/L (-2.5-2.5) L 10/29/16 22:55 Mixed VBG O2 Saturation 46 % (65-75) L 11/01/16 05:25 O2 Concentration % 40 % (0-100) 10/29/16 22:55 Actual Respiration Rate 16 10/29/16 22:55 Set Respiration Rate 22 10/29/16 17:57 SIMV YES 10/29/16 15:55 Tidal Volume 550 10/29/16 17:57 End Tidal CO2 44 10/29/16 22:55 PEEP 5 10/29/16 22:55 Pressure Support 10 10/29/16 22:55 CPAP YES 10/29/16 22:55 POC Sodium 139 mEq/L (134-144) 10/31/16 15:35 Sodium 139 mEq/L (134-144) 11/04/16 05:45 POC Potassium 4.2 mEq/L (3.3-5.0) 10/31/16 15:35 Potassium 3.8 mEq/L (3.5-5.2) 11/05/16 07:00 POC Chloride 104 mEq/L (96-108) 10/31/16 15:35 Chloride 106 mEq/L (97-110) 11/04/16 05:45 Carbon Dioxide 26 mEq/l (22-31) 11/04/16 05:45 Bicarbonate 21 mEq/L (22-26) L 10/29/16 22:55 Anion Gap 7 mEq/L (8-16) 11/04/16 05:45 POC BUN 41 mg/dL (7-23) H 10/31/16 15:35 BUN 41 mg/dL (7-23) H 11/04/16 05:45 Creatinine 0.9 mg/dL (0.7-1.3) 11/04/16 05:45 POC Creatinine 1.0 mg/dL (0.8-1.5) 10/31/16 15:35 Estimated GFR > 60 11/04/16 05:45 Glucose 65 mg/dL (70-100) L 11/04/16 05:45 POC Glucose 88 mg/dL (70-100) 10/31/16 15:35 Hemoglobin A1c 5.6 % (4.0-6.0) 10/23/16 05:14 Estim Average Glucose 114 mg/dL (68-126) 10/23/16 05:14 Calcium 7.8 mg/dL (8.5-10.4) L 11/04/16 05:45 Magnesium 2.0 mg/dL (1.6-2.3) 10/27/16 03:55 Total Bilirubin 1.8 mg/dL (0.1-1.4) H 11/03/16 06:10 Conjugated Bilirubin 0.6 mg/dL (0.0-0.5) H 10/20/16 19:15 Unconjugated Bilirubin 1.1 mg/dL (0.0-1.1) 10/20/16 19:15 AST 73 IU/L (17-59) H 11/03/16 06:10 ALT 134 IU/L (21-72) H 11/03/16 06:10 Alkaline Phosphatase 60 IU/L (38-126) 11/03/16 06:10 Troponin I 0.208 ng/mL (0-0.034) H 10/22/16 04:41 NT-Pro-B Natriuret Pep 3050 pg/mL (0-125) H 10/26/16 14:51 Total Protein 4.7 g/dL (6.3-8.2) L 11/03/16 06:10 Albumin 2.3 g/dL (3.5-5.0) L 11/03/16 06:10 Triglycerides 70 mg/dL (40-150) 10/21/16 04:15 Cholesterol 144 mg/dL (140-220) 10/21/16 04:15 Cholesterol Risk Factr 0.8 (0.2-1.0) 10/21/16 04:15 LDL Cholesterol, Calc 93 mg/dL (80-100) 10/21/16 04:15 LDL Risk Factor 1.0 (0.2-1.0) 10/21/16 04:15 VLDL Cholesterol 14 mg/dL (8-25) 10/21/16 04:15 Non-HDL Cholesterol 107 mg/dL (90-129) 10/21/16 04:15 HDL Cholesterol 37 mg/dL (40-65) L 10/21/16 04:15 LDL/HDL Ratio 2.51 RATIO (1.00-3.64) 10/21/16 04:15 Cholesterol/HDL Ratio 3.89 RATIO (1.00-4.97) 10/21/16 04:15 Lipase 23.0 IU/L (23-300) 10/20/16 19:15 TSH 4.210 uIU/mL (0.465-4.680) 10/21/16 04:15 Stool Occult Bld Scrn NEGATIVE (NEGATIVE) 10/22/16 16:34 Heparin-induced Ab Negative (Negative) 11/01/16 08:55 Heparin-PF4 Ab Reactiv 9 % (<20) 11/01/16 08:55 Heparin-PF4 Ab Comment See Comments (()) 11/01/16 08:55 Patient ABO/Rh O POSITIVE 10/28/16 03:56 Antibody Screen NEGATIVE 10/28/16 03:56 Crossmatch IS Only See Detail 10/28/16 03:56 A/P Assessment: 1. Ischemic cardiomyopathy. 2. Moderate mitral regurgitation Plan: 70-year-old male status post CABG, aortic valve replacement, left atrial appendage resection. Post operative echocardiogram shows left ventricular ejection fraction of 10- 15% with moderate mitral regurgitation. Patient will likely need single-chamber defibrillator implantation. However we need to wait 90 days after revascularization. I have recommended that he have a life vest placed while we are waiting for ICD implantation. I have discussed this with Markos Espinoza (who will arrange for LifeVest) and Dr. Christopher Trejo. He was instructed on how the life vest works. Risks of ICD implantation including , mi, cardiac tamponade, DVT, pulmonary embolus, infection, bleeding etc were discussed with him and his . He will be scheduled to have echocardiogram in our office in the 1st week of January and to visit with me immediately after that. If left ventricular ejection fraction is less than 35%, single-chamber ICD implantation will be scheduled. If left ventricular ejection fraction is between 35 and 40%, he will need EP study an ICD only if he has sustained monomorphic ventricular tachycardia. If ventricular function is more than 40%, he will not qualify for an ICD implantation.
[2016-11-05] MEDS: POTASSIUM CL 20 MEQ TAB PO SCH ×2 (11:11→19:49)
[2016-11-05] MEDS ORDERED: HYDROCODONE/APAP 5/325 TAB PO PRN (14:06)
--- NOTE | 2016-11-05 15:41 | US ---
Ultrasound chest History: Dyspnea, pleural effusion. Findings: Ultrasound imaging of the left hemithorax demonstrates moderate bilateral pleural effusions , which correlates with the plain films from today. Impression: Moderate bilateral pleural effusions.
[2016-11-05] MEDS: ACETAMINOPHEN 325 MG TAB PO PRN (16:21)
[2016-11-05 16:29] LABS: ALANINE AMINOTRANSFERASE 157 IU/L (21-72); ALBUMIN 2.8 g/dL (3.5-5.0); ASPARTATE AMINOTRANSFERASE 108 IU/L (17-59); BILIRUBIN,TOTAL 2.6 mg/dL (0.1-1.4); BILIRUBIN-CONJUGATED 0.6 mg/dL (0.0-0.5); POTASSIUM 3.9 mEq/L (3.5-5.2); TOTAL PROTEIN 5.7 g/dL (6.3-8.2)
[2016-11-05] MEDS ORDERED: BUPIVACAINE 0.5% 30 ML SDV ONE (17:36)
--- NOTE | 2016-11-05 18:22 | DX ---
AP Upright portable chest Reason for examination: Follow-up thoracentesis; comparison to the study earlier today at 0 614 hours . Findings: There is been marked decrease in opacity in the right lower chest consistent with interval thoracentesis. There is also decreased left lower lung opacity where there may have been also left-si ded thoracentesis. There may be a very minimal right apical pneumothorax.. Postoperative changes are stable. The heart remains enlarged. Impression: Decrease in bilateral opacities consistent with interval thoracentesis with equivocal min imal right apical pneumothorax.
[2016-11-05] MEDS ORDERED: SENNOSIDES/DOCUSATE SODIUM TAB PO PRN (21:00)
[2016-11-05] MEDS: MELATONIN 3 MG TAB PO PRN (21:13)
[2016-11-05 21:15] LABS: LD, PLEURAL FLUID 1162 IU/L
--- NOTE | 2016-11-06 04:25 | GPN ---
[f rep st] PROCEDURE NOTE PROCEDURE: Thoracentesis. IDENTIFICATION: The patient is a 70-year-old, who is status post open heart surgery, including CABG and aortic valve replacement. He has a very low ejection fraction and increasing bilateral pleural e ffusions, despite diuresis. I am being requested by Dr. Trejo to perform thoracentesis. DESCRIPTION OF PROCEDURE: The procedure was performed in the endoscopy unit. Prior to the procedure , bilateral ultrasounds were done to identify the patient's pleural effusion and best location for th oracentesis. The effusion was significantly larger on the right compared to the left. The patient's INR prior to the procedure was 2.9. Coumadin was being held. Following adequate topical anesthesia, via interspace 8-9 posteriorly, the thoracentesis catheter was passed into the patient's pleural effusion. Serosanguineous fluid was removed. Total fluid removed was approximately 800 mL. The patient tolerated the procedure well. There was no bleeding or evide nce of bleeding of significance. The patient did have pleuritic chest pain towards the end of the pr ocedure, and thus after the fluid was removed, approximately 15 mL of 0.5% Marcaine was instilled thr ough the thoracentesis catheter. A chest x-ray following the procedure showed excellent evacuation o f the patient's right-sided pleural effusion, with little remaining fluid and no evidence of a pneumo thorax by my reading. Appropriate studies were sent. IMPRESSION: Successful large volume thoracentesis. COMPLICATIONS: None. /[id number]/MODL
[2016-11-06 05:25] LABS: ANION GAP 11 mEq/L (8-16); CALCIUM 8.9 mg/dL (8.5-10.4); CARBON DIOXIDE 27 mEq/l (22-31); CHLORIDE 99 mEq/L (97-110); CREATININE 0.9 mg/dL (0.7-1.3); GLOMERULAR FILTRATION RATE > 60; GLUCOSE 101 mg/dL (70-100); POTASSIUM 3.7 mEq/L (3.5-5.2); SODIUM 137 mEq/L (134-144)
[2016-11-06 05:26] LABS: INR 2.29 (0.83-1.16); PROTIME(PATIENT) 25.4 SEC (12.0-15.0)
[2016-11-06] MEDS: ACETAMINOPHEN 325 MG TAB PO PRN ×3 (05:45→21:23)
[2016-11-06] MEDS ORDERED: POTASSIUM CL 20 MEQ TAB PO ONE (08:11)
[2016-11-06] MEDS: AMIODARONE HCL 200 MG TAB PO SCH ×2 (08:20→21:18)
[2016-11-06] MEDS: ASPIRIN EC 81 MG TAB PO SCH (08:25)
[2016-11-06] MEDS: FUROSEMIDE 40 MG TAB PO SCH ×2 (08:25→15:19)
[2016-11-06] MEDS: PANTOPRAZOLE SODIUM 40 MG TAB PO SCH (08:25)
[2016-11-06] MEDS: POTASSIUM CL 20 MEQ TAB PO SCH (08:31)
--- NOTE | 2016-11-06 08:46 | SOAPPROG ---
SOAP Progress Note Assessment/Plan: POD #8: CABGx4 (HATCH-LAD, RACHANA-D1, SVG-D2, SVG-Krupa RCA), AVR #23 Magna bioprosthesis, left ventriculotomy, AtriClip RANJEET Severe 3-vessel disease with ICM s/p CABGx4 - ASA for graft thromboprophylaxis - BB in future if BP improves Severe AI s/p AVR with #23 Magna bioprosthesis - Stable - good function as per post-op ECHO Left ventricular aneurysm s/p ventriculotomy without need for resection - LV aneurysm found to be non-transmural with normal muscle thickness without signs of infarction Acute blood loss anemia with coagulopathy and thrombocytopenia, resolved Class IV CHF, with systolic dysfunction, pre-op EF 15%, post-op 15% - Daily Lasix/ACEi - Possible future BB if BP improves - B/L pleural effusions R>L - 800 cc removed from right chest 11/05/16 - Severe systolic dysfunction - Life Vest ordered Post-operative rapid atrial fibrillation with conversion to SR - Continue amiodarone - Coumadin for INR goal 2-3 Narcotic induced ileus, resolved Saccular infrarenal AAA with ectatic iliacs - Eval for EVAR once recovered from cardiac surgery Disposition - Plan for SNF Saturday Subjective: Denies SOB/CP. Objective: Vital Signs Temp Pulse Resp BP Pulse Ox 36.4 C 83 21 H 90/61 L 93 11/06/16 08:02 11/06/16 08:02 11/06/16 08:02 11/06/16 08:02 11/06/16 08:02 Microbiology 11/05/16 17:30 Gram Stain - Final Pleural Fluid - Aspirate Laboratory Results 11/03/16 06:10 11/06/16 04:54 11/05/16 11/06/16 11/07/16 05:59 05:59 05:59 Intake Total 1150 300 Output Total 1270 3450 Balance -120 -3150 PT 25.4 SEC (12.0-15.0) H 11/06/16 04:54 INR 2.29 (0.83-1.16) H 11/06/16 04:54 Physical Exam - Physical Exam General Appearance: alert, no apparent distress, thin EENT: No scleral icterus (R), No scleral icterus (L) Neck: normal inspection Respiratory: No respiratory distress Cardiac/Chest: regular rate, rhythm Abdomen: non-tender, soft, No distended Skin: normal color, warm/dry Extremities: pedal edema (+1 B/L LE) Neuro/Psych: no motor/sensory deficits, alert, normal mood/affect, oriented x 3 ICD10 Worksheet Patient Problems: Problems Problem Status Diagnosed Acute blood loss anemia Acute Atrial fibrillation with rapid ventricular response Acute CHF (congestive heart failure), NYHA class III Acute Chest pain Acute Ischemic cardiomyopathy Acute S/P CABG x 4 Acute 10/29/16 S/P aortic valve replacement with bioprosthetic valve Acute 10/29/16 Severe aortic insufficiency Acute CAD, multiple vessel Chronic
--- NOTE | 2016-11-06 08:57 | DX ---
Portable Chest, 626 a.m. History: Follow-up pleural effusion post open heart surgery, thoracentesis yesterday Comparison: Yesterday 17:52, October 20, 2016 Findings: No residual right pneumothorax. Subtle blunting of the right lateral costophrenic gutter is stable. Left lower lobe consolidation with costophrenic gutter blunting is stable. There is a newly identified vague nodular opacity at the left lateral lung base that may represent intrafissural fluid . Heart size and pulmonary vascularity are unchanged. Median sternotomy wires, CABG clips, a valve re placement and an atrial appendage clip remain. Impression: Resolved right pneumothorax. Continued radiographic follow-up is recommended to ensure th at there is no developing nodule at the left base
[2016-11-06] MEDS: LISINOPRIL 5 MG TAB PO SCH (10:02)
[2016-11-06 11:52] LABS: ALKALINE PHOSPHATASE 79 IU/L (38-126)
[2016-11-06] MEDS ORDERED: ALBUMIN 5% 250 ML IV ONE (13:59)
[2016-11-06] MEDS ORDERED: WARFARIN SODIUM 1 MG TAB PO ONE (16:00)
[2016-11-06] MEDS ORDERED: NS 1,000 ML IV ONE (16:19)
[2016-11-07] MEDS: ACETAMINOPHEN 325 MG TAB PO PRN (05:05)
[2016-11-07 05:23] LABS: INR 2.39 (0.83-1.16); PROTIME(PATIENT) 26.3 SEC (12.0-15.0)
[2016-11-07 05:56] LABS: ANION GAP 8 mEq/L (8-16); CALCIUM 8.3 mg/dL (8.5-10.4); CARBON DIOXIDE 28 mEq/l (22-31); CHLORIDE 100 mEq/L (97-110); CREATININE 0.8 mg/dL (0.7-1.3); GLOMERULAR FILTRATION RATE > 60; GLUCOSE 88 mg/dL (70-100); POTASSIUM 3.7 mEq/L (3.5-5.2); SODIUM 136 mEq/L (134-144)
[2016-11-07] MEDS ORDERED: POTASSIUM CL 20 MEQ TAB PO ONE (08:03)
[2016-11-07] MEDS ORDERED: POTASSIUM CL 20 MEQ PKT PO ONE (08:30)
[2016-11-07] MEDS: AMIODARONE HCL 200 MG TAB PO SCH (08:31)
[2016-11-07] MEDS: ASPIRIN EC 81 MG TAB PO SCH (08:31)
[2016-11-07] MEDS: PANTOPRAZOLE SODIUM 40 MG TAB PO SCH (08:32)
[2016-11-07] MEDS ORDERED: POTASSIUM CL 20 MEQ PKT PO SCH (09:00)
[2016-11-07] MEDS ORDERED: FUROSEMIDE 80 MG TAB PO SCH (09:00)
[2016-11-07] MEDS ORDERED: POTASSIUM CL 20 MEQ TAB PO SCH (09:00)
--- NOTE | 2016-11-07 12:30 | SOAPPROG ---
SOAP Progress Note Assessment/Plan: Assessment: POD#9 CABGx4 (HATCH-LAD, RACHANA-D1, SVG-D2, SVG-AM), AVR #23 Magna bioprosthesis, left ventriculotomy, AtriClip LLAA POD#2 800ml rt thoracentesis Sx severe CAD - s/p CABG4 with bilateral mammaries. Tubes and wires out. Secondary prevention w baby ASA, Coreg as allowed by BP, and statin once off amiodarone. Dilated ischemic cardiomyopathy with apical aneurysm - Aneurysmectomy deferred as apical muscle not thinned out or fibrotic. Severe AI - s/p tissue AVR. Antithrombotic prophylaxis with Coumadin as per rhythm. Postop AF - Druze of SR on amiodarone. [id number] score of 4. Antithrombotic prophylaxis with Coumadin. Target INR 2-3. Duration TBD. Conservative load as RANJEET ligated. Adjunctive baby ASA for CAD. Class IV CHF, with systolic dysfunction, pre-op EF ~20% - Medically compensated preop s/p 6kg diuresis. LV systolic fx slightly improved post revascularization on low dose inotropic and pressor support. Both ventricles noted to be globally hypokinetic w LVEF~15% once off vasoactive support. Believed to be significantly volume overloaded and aggressively diuresed. Residual rt pl effusion tapped 2 days ago. ACEI added for afterload reduction. Insufficient BP for BB. LifeVest prophylaxis pending EP eval for AICD in 3 mo. Postop ileus - Exacerbated by immobility, narcs and low CI. Resolved with supportive care. Acute blood loss anemia with thrombocytopenia and mild coagulopathy - Stable s/ p 4u PRBC. H/H > 10/30 maintained. Platelet rebound noted. HIT Ab neg. Aortoiliac disease - Saccular infrarenal AAA with ectatic iliacs. Eval for EVAR once recovered from cardiac surgery. Secondary prevention as per CAD. Plan: Ok for transfer to SNF once fitted w LifeVest. Reduce amio to 200 mg daily. Switch to oral lasix 80mg daily. Cont lisinopril 2.5 mg daily. Cont coumadin 1 mg daily. Oupt f/u with heart failure clinic and CVsurgery next week. 11/07/16 12:23 Subjective: Feels well. Ready for change of scenery. No acute concerns. Objective: Vital Signs Temp Pulse Resp BP Pulse Ox 36.4 C 86 22 H 91/64 L 98 11/07/16 07:59 11/07/16 07:59 11/07/16 07:59 11/07/16 07:59 11/07/16 07:59 Microbiology 11/05/16 17:30 Gram Stain - Final Pleural Fluid - Aspirate 11/01/16 12:50 Blood Culture - Final Blood 11/01/16 11:50 Blood Culture - Final Blood Laboratory Results 11/03/16 06:10 11/07/16 04:36 11/06/16 11/07/16 11/08/16 05:59 05:59 05:59 Intake Total 300 1660 Output Total 3450 1620 400 Balance -3150 40 -400 PT 26.3 SEC (12.0-15.0) H 11/07/16 04:36 INR 2.39 (0.83-1.16) H 11/07/16 04:36 7 liter diuresis/48hrs on IV lasix/metolazone. 1 liter IVF/xtra electrolyte replacement last noc for reactive hypotension. Back to usual BP this am. Cont to hold SR. Stable labs. Physical Exam - Physical Exam General Appearance: alert, no apparent distress Respiratory: decreased breath sounds (left base) Cardiac/Chest: regular rate, rhythm, other (Sternum grossly stable. Sternotomy, chest tube sites and LLE venotomy healing well.) Abdomen: non-tender, soft Skin: warm/dry Extremities: swelling (1+ dependent) ICD10 Worksheet Patient Problems: Problems Problem Status Diagnosed Acute blood loss anemia Acute Atrial fibrillation with rapid ventricular response Acute CHF (congestive heart failure), NYHA class III Acute Chest pain Acute Ischemic cardiomyopathy Acute S/P CABG x 4 Acute 10/29/16 S/P aortic valve replacement with bioprosthetic valve Acute 10/29/16 Severe aortic insufficiency Acute CAD, multiple vessel Chronic
--- NOTE | 2016-11-07 13:26 | PDIAF ---
- Diagnosis Diagnosis: CAD, severe ISCM, severe AI s/p CABG, tissue AVR; postop PAF Code Status: Full Code - Medication Management Discharge Medications: Medications to Continue on Transfer Melatonin [Melatonin 3 MG (*)] 3 mg PO HS PRN 10/20/16 [Last Taken 10/19/16] Acetaminophen [Tylenol 325mg (*)] 650 mg PO Q4HRS PRN #0 tab 11/07/16 [Last Taken Unknown] Acetamn/Diphenhydramine 500/25 [Tylenol PM (*)] 1 each PO HS PRN #0 tab [Last Taken Unknown] Amiodarone HCl [Pacerone (*)] 200 mg PO DAILY #30 tab 11/07/16 [Last Taken Unknown] Aspirin EC [Aspirin EC 81 mg (*)] 81 mg PO DAILY #0 tab 11/07/16 [Last Taken Unknown] Furosemide [Lasix 80 MG (*)] 80 mg PO DAILY #0 tab 11/07/16 [Last Taken Unknown] Lisinopril [Zestril 2.5 mg (*)] 2.5 mg PO HS #0 tab 11/07/16 [Last Taken Unknown ] Polyethylene Glycol 3350 [Miralax 17 gm (*)] 17 gm PO DAILY PRN #0 pkt 11/07/16 [Last Taken Unknown] Potassium Chloride Po [Klor Packets 20 meq (*)] 40 meq PO DAILY #0 pkt 11/07/16 [Last Taken Unknown] Sennosides/Docusate Sodium [Senokot-S] 1 - 2 tab PO BID PRN #0 tab 11/07/16 [ Last Taken Unknown] Sodium Cl Nasal [[place] (*)] 1 spray [place] PRN PRN #0 btl 11/07/16 [ Last Taken Unknown] Tears/Dextran 70/Hypromellose [Natural Balance Tears (*)] 1 drop EACHEYE Q2HRS PRN #0 opht.btl 11/07/16 [Last Taken Unknown] Warfarin Sodium [Coumadin 1MG (*)] 1 mg PO DAILY AT 4PM #0 tab 11/07/16 [Last Taken Unknown] traMADol [Ultram 50 mg (*)] 50 - 100 mg PO Q4 PRN #0 tab 11/07/16 [Last Taken Unknown] Discharge Medications: Refer to the Discharge Home Medication list for PRN reason. PICC Care - Routine: N/A - Orders Services needed: Registered Nurse, Physical Therapy, Occupational Therapy Oxygen: prn SpO2 < 90% Diet Recommendation: sodium restricted (2000 mg), fluid restriction (use comment for amount) (1500 ml daily) Diet Texture: Regular Texture Diet Weigh Patient: daily Frank: Not applicable Wound Care Instructions: Daily soap and water. Ok to leave all wounds open to air. Avoid creams and ointments. Activity/Weight Bearing Restrictions: sternal precautions x 3 more weeks Additional: -Recommend inservice by [facility]. Alert parker Meryl if shock delivered. -Call [facility] (Neil Hogan or BRADLEY Patel) for overnight weight gain > 2 lbs, worsening leg swelling, resting heart rate < 60 or > 120, SBP < 85 or > 140, supplemental O2 need > 3lpm, INR > 4, or any wound concerns. Irregular heart rate acceptable so long as rate 60-120. Please do not send to ER for Afib without talking to [facility] (CV surgery provider always nutrition services worker) first. - Labs/Radiology BMP Date: 11/09/16 PT/INR Date: 11/09/16 (Target INR 2-3. Duration TBD.) Imaging Orders: CXR prior to surgical appointment Call or Fax Lab and Imaging Results to: Please fax results of labs to [facility] CV surgery [facility] [phone] - Follow Up Care Current Providers and Referrals: Sanket Sheth MD [Medical Doctor] - follow up in 1 week (as directed) Denise Lowery MD [Primary Care Provider] - As per Instructions Christopher Trejo DO [Doctor of Osteopathy] - 11/13/16 2:15 pm
[2016-11-07 15:53] VITALS: BP 100/67; PULSE 92; RESP 16; TEMP 98.3; O2SAT 94
[2016-11-07] MEDS ORDERED: WARFARIN SODIUM 1 MG TAB PO SCH (16:00)
[2016-11-07] MEDS ORDERED: LISINOPRIL 2.5 MG TAB PO SCH (21:00)
--- NOTE | 2016-11-07 22:29 | PDDCSUM ---
Discharge Summary Discharge Summary: DATE OF ADMISSION: 10/21/16 DATE OF DISCHARGE: 11/07/16 DISPOSITION: Transferred to [facility] PRINCIPAL DISCHARGE DIAGNOSES: 1. 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 2. Mild to moderate left carotid atherosclerosis. 3. Incidental iliac artery ectasia and infrarenal abdominal aortic aneurysm. 4. Severe multivessel coronary artery disease treated with coronary artery bypass grafting. 5. Ischemic cardiomyopathy with severe left ventricular systolic dysfunction and apical aneurysm. 6. Moderate to severe aortic valve insufficiency treated with bioprosthetic aortic valve replacement. 7. Acute expected blood loss anemia with thrombocytopenia and coagulopathy. 8. Postoperative paroxysmal atrial fibrillation. 8. Postoperative pulmonary effusions requiring rt sided thoracentesis. 10. Postoperative ileus resolving with supportive measures. DISCHARGE MEDICATIONS: Aspirin 81 mg daily; Coumadin 1 mg daily or as directed by INR; Lasix 80 mg daily; Klorcon 40 mEq daily; Amiodarone 200 mg daily x 4 more weeks or as directed by cardiology; Lisinopril 2.5 mg nightly; Miralax 17 gm daily prn constipation; Senokot S 1-2 tabs BID prn constipation; Melatonin 3 mg HS prn insomnia; Tylenol PM i tab HS prn insomnia; Natural balance tears i drop each eye prn dryness; Tylenol 650mg q4h prn mild incisional discomfort; Ultram 50mg q4h prn moderate incisional discomfort; O2 prn SpO2 < 90%. ALLERGIES/SENSITIVITIES: Tetanus vaccines and toxoid FOLLOW UP APPOINTMENTS: 1. Cardiology: with Dr Sheth at [facility] on 11/13 at 3pm 2. CV surgery: with Dr Trejo at [facility] on 11/13 at 2:15pm. FOLLOW UP TESTIN. INR and BMP on 11/09. Results to [facility]. 2. CXR prior to surgical appointment. CONSULTANTS: Cardiology (Moni), EP cardiology (Manav), CV surgery (Neil), Pulmonology/ critical care (Eric) PROCEDURES/IMAGIN/21 (Moni): Transthoracic echocardiogram 10/21 (Moni): Left heart catheterization with selective coronary angiography and left ventriculography. Access via rt common femoral artery. 10/22 Carotid ultrasound 10/24 Cardiac MRI 10/25 (Moore): Dobutamine stress echocardiogram 10/26 (Moore): Right heart catheterization 10/29 (Neil): Coronary artery bypass grafting x 4 (ABBI-distal LAD, ANTONY-D1, SV- D2, SV-AM). Takedown bilateral internal thoracic arteries. Endoscopic vein harvest bilateral thighs. Aortic valve replacement with a 23mm [place] magna bovine pericardial bioprosthesis. Left ventriculotomy. Prophylactic AtriClip ligation of the left atrial appendage. 11/02 (Denise): Transthoracic echocardiogram 11/05 (Clement): Ultrasound guided right thoracentesis for 800 ml. HISTORY OF PRESENT ILLNESS: 70 yo male without significant PMH evaluated in the ER for a 3 wk hx of worsening dyspnea and fatigue and admitted for further cardiac evaluation after initial testing suggestive of decompensated CHF. Demonstrated to have evidence of an old anteroapical HI and more recent inferior HI, with severe multivessel CAD, severe LVSD (EF~20%), and significant AI. Medically stabilized and referred for surgical revascularization and AVR. LV viability corroborated by stress echo and cleared for surgery once deemed euvolemic by rt heart cath. Preop imaging negative for prohibitive neurologic risk. Evaluation of incidentally noted AAA and ectatic iliacs deferred until recovered from cardiac surgery. ABBREVIATED HOSPITAL COURSE BY ACTIVE PROBLEM LIST: 1. Sx severe CAD - s/p CABG4 with bilateral mammaries. Secondary prevention w baby ASA, Coreg as allowed by BP, and statin once off amiodarone. 2. Dilated ischemic cardiomyopathy with apical aneurysm - Aneurysmectomy planned but aborted intraop as apical muscle not thinned out or fibrotic. 3. Severe AI - s/p tissue AVR. Antithrombotic prophylaxis with Coumadin as per rhythm. 4. Postop PAF - Congregational of SR on amiodarone. [id number] score of 4. Antithrombotic prophylaxis with Coumadin. Target INR 2-3. Duration TBD. Conservative load as RANJEET ligated. Expected drug sensitivity while clearing hepatic congestion. Adjunctive baby ASA for CAD. 5. Class IV combined CHF with small bilateral pleural effusions, functional MR, severe LVSD and elev LFTs - Medically compensated preop s/p 6kg diuresis. Postop hemodynamics and end organ function well preserved on low dose inotropic and pressor support. Gradual wean from vasoactive support successful despite significant volume overload and ongoing biventricular hypokinesis w LVEF gauged ~10-15%. Aggressive diuresis well tolerated and able to resume ACEI, but insufficient BP for BB. Residual moderate sized rt pleural effusion fully evacuated on POD#7. Smaller left pleural effusion to be followed by CXR and tapped if unresponsive to ongoing diuresis. Mild-moderate MR to be followed by surveillance echocardiography. Fitted with a LifeVest pending EP eval for AICD in 3 mo. Skilled for SNF rehab for strengthening, conditioning, and cardiorespiratory monitoring. 6. Postop ileus - Exacerbated by immobility, narcs and low CI. Resolved with supportive care. 7. Acute blood loss anemia with thrombocytopenia and mild coagulopathy - Stable s/p 4u PRBC. H/H > 10/30 maintained. Platelet rebound noted. HIT Ab neg. 8. Aortoiliac disease - Saccular infrarenal AAA with ectatic iliacs. Eval for EVAR once recovered from cardiac surgery. Secondary prevention as per CAD. DISCHARGE CLINICAL INFORMATION: Sternum grossly stable. Sternotomy and venotomies CDI, sutured, +Dermabond. HR 80s. SBP 90s-110s. SpO2 93% on 1 Lpm O2. Wt 2.4 kg above "dry" weight of 60 kilos. WBC 10.3, Hgb 10.8, HCT 31.7, Plt 140, Na 136, K 3.7, BUN 26, Cr 0.8 Coumadin flow sheet: Target INR 2-3. Duration TBD. Date INR mg 2/3 -- 2.5 2/ 1.65 2.5 2/5 3.15 0 2/6 2.9 0 2/7 2.3 1 2/8 2.4 1
[2016-11-08] MEDS ORDERED: AMIODARONE HCL 200 MG TAB PO SCH (09:00)
== END 2016-11-07 16:59 | DRG 216 ==
LOC: F2N 23:32 → F2W 10-21 05:23 → OBSVTOIN 10-21 13:18 → F2N 10-29 09:36 → F2W 11-03 14:24
PROVIDERS: ADMIT Student in an Organized Health Care Education/Training Program; ATTEND Thoracic Surgery (Cardiothoracic Vascular Surgery)
PROC: B2151ZZ Fluoroscopy of Left Heart using Low Osmolar Contrast (ICD-10-PCS; 2016-10-21)
PROC: 4A023N7 Measurement of Cardiac Sampling and Pressure, Left Heart, Percutaneous Approach (ICD-10-PCS; 2016-10-21)
PROC: B2111ZZ Fluoroscopy of Multiple Coronary Arteries using Low Osmolar Contrast (ICD-10-PCS; 2016-10-21)
PROC: B2141ZZ Fluoroscopy of Right Heart using Low Osmolar Contrast (ICD-10-PCS; 2016-10-26)
PROC: 4A023N6 Measurement of Cardiac Sampling and Pressure, Right Heart, Percutaneous Approach (ICD-10-PCS; 2016-10-26)
PROC: 02RF0JZ Replacement of Aortic Valve with Synthetic Substitute, Open Approach (ICD-10-PCS; principal; 2016-10-29 07:15)
PROC: 021109W Bypass Coronary Artery, Two Arteries from Aorta with Autologous Venous Tissue, Open Approach (ICD-10-PCS; principal; 2016-10-29 07:15)
PROC: 02100Z9 Bypass Coronary Artery, One Artery from Left Internal Mammary, Open Approach (ICD-10-PCS; principal; 2016-10-29 07:15)
PROC: 5A1221Z Performance of Cardiac Output, Continuous (ICD-10-PCS; principal; 2016-10-29 07:15)
PROC: 02L70CK Occlusion of Left Atrial Appendage with Extraluminal Device, Open Approach (ICD-10-PCS; principal; 2016-10-29 07:15)
PROC: 02100Z8 Bypass Coronary Artery, One Artery from Right Internal Mammary, Open Approach (ICD-10-PCS; principal; 2016-10-29 07:15)
PROC: 30233N1 Transfusion of Nonautologous Red Blood Cells into Peripheral Vein, Percutaneous Approach (ICD-10-PCS; 2016-10-29 07:15)
PROC: 0W993ZZ Drainage of Right Pleural Cavity, Percutaneous Approach (ICD-10-PCS; 2016-11-05)
DX: I35.8 Other nonrheumatic aortic valve disorders (principal); I50.41 Acute combined systolic (congestive) and diastolic (congestive) heart failure; I25.10 Atherosclerotic heart disease of native coronary artery without angina pectoris; I25.82 Chronic total occlusion of coronary artery; D62 Acute posthemorrhagic anemia; J90 Pleural effusion, not elsewhere classified; I25.3 Aneurysm of heart; I71.4 Abdominal aortic aneurysm, without rupture; I48.91 Unspecified atrial fibrillation; K56.7 Ileus, unspecified; E78.5 Hyperlipidemia, unspecified; E87.1 Hypo-osmolality and hyponatremia; R73.9 Hyperglycemia, unspecified; I10 Essential (primary) hypertension; I25.2 Old myocardial infarction; Z87.891 Personal history of nicotine dependence
CPT/HCPCS: 82947-QW; 85520-90; 86022-90; 97116-GP; 97162-GP; 97166-GO; 97530-GP; 97535-GO; A9585; C1769; C8924; C9606; G0378; J0153; J0171; J0282; J0461; J0583; J0690; J1250; J1265; J1644; J1650; J1815; J2001; J2150; J2250; J2260; J2370; J2405; J2440; J2704; J2720; J2765; J2930; J3010; J7060; P9016; P9021; P9041; Q9967

== ENCOUNTER → 2016-11-13 | Outpatient (CLI) | payer OTHER | LOC: FIMAGING 15:19 | PROVIDERS: ATTEND Thoracic Surgery (Cardiothoracic Vascular Surgery) | DX: Z09 Encounter for follow-up examination after completed treatment for conditions other than malignant neoplasm (principal); Z95.1 Presence of aortocoronary bypass graft ==

== ENCOUNTER → 2016-11-20 | Outpatient (CLI) | payer OTHER | LOC: FIMAGING 10:06 | PROVIDERS: ATTEND Thoracic Surgery (Cardiothoracic Vascular Surgery) | DX: J90 Pleural effusion, not elsewhere classified (principal); R91.1 Solitary pulmonary nodule; Z95.1 Presence of aortocoronary bypass graft ==

== ENCOUNTER → 2016-12-10 | Outpatient (CLI) | payer OTHER | LOC: FIMAGING 11:09 | PROVIDERS: ATTEND Physician Assistant Medical | DX: Z09 Encounter for follow-up examination after completed treatment for conditions other than malignant neoplasm (principal); J90 Pleural effusion, not elsewhere classified; R91.1 Solitary pulmonary nodule; I50.9 Heart failure, unspecified; I95.9 Hypotension, unspecified; Z98.890 Other specified postprocedural states ==